=== PATIENT | male | born 1955 | race Caucasian/White ===

== ENCOUNTER → 2020-02-27 07:46 | Outpatient (REF) | payer OTHER, SELFPAY ==
--- NOTE | 2020-02-27 | NM_ITS ---
Myocardial perfusion study Indication: Chest pain with risk factors to evaluate for myocardial ischemia Technique: The patient was brought in for a Lexiscan perfusion study on 02/27/2020. Patient performed low-level exercise and was injected 0.4 mg of Lexiscan intravenously. Within a minute of injection, 45 mCi of sestamibi was given intravenously. Images were obtained using the SPECT gamma camera interlaced with the gating device. Images were obtained in supine position. Resting perfusion study was performed on 03/05/2020. Patient was administered 45 mCi of sestamibi intravenously at rest. Images were then obtained in supine position. Images obtained with and without CT attenuation. Total DLP 79 mGy-cm. Images were processed with the software and compared side to side in short axis, horizontal long axis and vertical long axis views. Findings: The stress perfusion study showed non attenuated images show minimally reduced uptake in the basal inferior wall of the LV myocardium. Remainder of the LV myocardium is normally perfused. Attenuation corrected images show mildly reduced uptake in the apex of the LV myocardium.. The gated study shows normal LV systolic function with calculated LVEF of 69%. LV cavity is normal in size. The gated study shows normal systolic wall thickening and contraction of segments. Resting study shows no change in perfusion pattern compared to stress perfusion study. Gating at rest reveals normal systolic wall motion with ejection fraction at 70%. The findings are consistent with normal myocardial perfusion. NM/NM alycia perf SPECT rest & str Impression: 1. Myocardial perfusion imaging study shows normal myocardial perfusion 2. Gated LVEF is 69% 3. Transient ischemic dilatation not present EKG is nondiagnostic for ischemia
--- NOTE | 2020-02-27 07:52 | CA_ITS ---
Acquisition Time: 2020-02-27 08:21:41 Total Exercise Time: 00:02:00 Test Indications: Dyspnea Medications: Protocol: LEXISCAN Max HR: 129 BPM 82% of Pred: 156 BPM Max BP: 148/090 mmHG Max Work Load: 1.0 METS Pharmacological stress test using Lexiscan while sitting and kicking his feet. Pt tolerated well. Denies any anginal sx. EKG with PAC's non diagnostic for ischemia. Nuclear images to follow. Normotensive response to test. Test reviewed with Dr. Barahona Referred By: Marquez Jones Overread By: Lio Aguirre
== END ==
LOC: HO.CARD 07:46
PROVIDERS: Visit Provider Internal Medicine
DX: R07.89 Other chest pain (principal); I10 Essential (primary) hypertension
CPT/HCPCS: 78452; 93017; A9500; J0280; J2785

== ENCOUNTER 2020-05-06 12:50 | Outpatient (REF) | payer OTHER, SELFPAY ==
[2020-05-06 13:36] LABS: Glucose Urine UA NEG (NEG); Leukocyte Esterase Urine NEG (NEG); Nitrite Urine NEG (NEG); Specific Gravity - Urine 1.025 (1.005-1.025); Urine Blood TRACE (NEG); Urine Ketones NEG (NEG); Urine Protein NEG (NEG-TRACE)
[2020-05-06 13:46] LABS: Appearance Urine CLEAR; Color Urine YELLOW
[2020-05-06 14:02] LABS: Alanine Aminotransferase 28 U/L (0-40); Albumin Level 4.4 g/dL (3.5-5.0); Alkaline Phosphatase 63 U/L (39-117); Anion Gap 12 (12-20); Aspartate Amino Transferase 18 U/L (5-37); Bilirubin Total 0.8 mg/dL (0.0-1.0); Blood Urea Nitrogen 21 mg/dL (9-16); Calcium 8.8 mg/dL (8.4-10.2); Carbon Dioxide 27 mmol/L (22-29); Chloride 106 mmol/L (96-108); Cholesterol 176 mg/dL; Estimated Glomerular Filt Rate > 60; Glucose Fasting 89 mg/dL (60-99); HDL Cholesterol 38 mg/dL; LDL Cholesterol Calculated 109 mg/dl; Potassium 3.7 mmol/L (3.3-5.1); Sodium 141 mmol/L (135-145); Total Protein 7.2 g/dL (6.5-8.0); Triglycerides 146 mg/dL
[2020-05-06 14:09] LABS: Mucus Urine TRACE /LPF; RBC Urine 0-2 /HPF (0); WBC Urine 0 /HPF (0-4)
== END 2020-05-06 12:51 | disposition home or self-care (01) ==
LOC: HO.LAB 12:50
PROVIDERS: PCP Internal Medicine; Visit Provider Internal Medicine
DX: I10 Essential (primary) hypertension (principal); E78.5 Hyperlipidemia, unspecified
CPT/HCPCS: 36415; 80053; 80061; 81001

== ENCOUNTER 2020-06-08 20:01 | Emergency (ER) | payer OTHER, SELFPAY ==
--- NOTE | ~2020-06-08 | XR_ITS ---
Examination: XR ankle LT 2V, XR foot LT 2V Indication: R/O FX. ALSO EXISTING ULCER LEFT HEEL. Comparison: No pertinent prior studies are currently available for comparison. Technique: 2 views of the left ankle and 2 views of the left foot obtained. Findings: Diffuse soft tissue swelling about the ankle more so medially. I do not appreciate any acute underlying fracture or dislocation. Mild degenerative changes seen. Ankle mortise appears grossly intact. Prominent calcaneal heel spurs at the attachment point of the plantar aponeurosis and Achilles tendon. No acute fracture or dislocation within the visualized foot with degenerative changes in the forward and midfoot more suggestive of underlying arthritic change. XR/XR foot LT 2V Impression: Chronic appearing and degenerative changes to the foot and ankle. I do not appreciate any acute fracture or dislocation. Mild soft tissue swelling about the ankle, more so medially.
--- NOTE | ~2020-06-08 | XR_ITS ---
Examination: XR ankle LT 2V, XR foot LT 2V Indication: R/O FX. ALSO EXISTING ULCER LEFT HEEL. Comparison: No pertinent prior studies are currently available for comparison. Technique: 2 views of the left ankle and 2 views of the left foot obtained. Findings: Diffuse soft tissue swelling about the ankle more so medially. I do not appreciate any acute underlying fracture or dislocation. Mild degenerative changes seen. Ankle mortise appears grossly intact. Prominent calcaneal heel spurs at the attachment point of the plantar aponeurosis and Achilles tendon. No acute fracture or dislocation within the visualized foot with degenerative changes in the forward and midfoot more suggestive of underlying arthritic change. XR/XR ankle LT 2V Impression: Chronic appearing and degenerative changes to the foot and ankle. I do not appreciate any acute fracture or dislocation. Mild soft tissue swelling about the ankle, more so medially.
[2020-06-08 20:12] VITALS: BP 158/123; BP 200/100; PULSE 104; PULSE 150; RESP 16; TEMP 37.1; O2SAT 96; BMI 34.4
--- NOTE | 2020-06-08 20:23 | PC.NURSE ---
LEFT LOWER EXTREMITY ELEVATED, ICE PACK APPLIED TO MEDIAL ANKLE. LEFT FOOT WARM WITH GOOD PEDAL PULSE. PT HAS ULCER ON LEFT HEEL X 1 YEAR.
--- NOTE | 2020-06-08 20:24 | PC.NURSE ---
PT REPORTS LEFT HEEL ULCER ON LEFT FOOT STARTED 1 YEAR AGO A CALLOUS I WAS PICKING AT.
--- NOTE | 2020-06-08 20:34 | PC.NURSE ---
XRay at bedside.
[2020-06-08 21:20] VITALS: BP 158/83; PULSE 95; RESP 16; O2SAT 95
--- NOTE | 2020-06-08 21:40 | ED.LOWEXIN ---
HPI - Extremity Injury (Lower) General Chief Complaint: Extremity Injury, Lower Stated Complaint: ?LT ANKLE FX Time Seen by Provider: 06/08/20 20:51 Source: patient Mode of arrival: ambulatory Limitations: no limitations History of Present Illness HPI Narrative: Patient otherwise healthy injured his left ankle and palate Eddi patient was wearing work boots and got crushed with Eddi. Patient came here with significant swelling of the ankle and increased pain. No other injuries patient is able to move his toes no discoloration of the toes no other injuries Related Data Home Medications Medication Instructions Recorded Confirmed amlodipine 5 mg tablet 5 mg PO DAILY 02/06/20 05/05/20 aspirin 81 mg tablet,delayed 81 mg PO DAILY 02/06/20 05/05/20 release lisinopril 40 mg tablet 40 mg PO BID 02/06/20 05/05/20 metoprolol succinate 50 mg 50 mg PO DAILY 02/06/20 05/05/20 tablet,extended release 24 hr tramadol 50 mg tablet 50 mg PO BID PRN 02/06/20 05/05/20 ibuprofen 800 mg tablet 800 mg PO Q8H 05/05/20 05/05/20 Allergies Allergy/AdvReac Type Severity Reaction Status Date / Time No Known Allergies Allergy Verified 06/08/20 20:12 Review of Systems Review of Systems: Yes all other systems are reviewed and are negative PMFSH Past Medical History Medical History Benign essential hypertension Chest discomfort Dyslipidemia Insomnia Obesity (BMI 30-39.9) Osteoarthritis Surgical History History of inguinal hernia repair Family History Family History Father CAD (coronary artery disease) Acute CVA (cerebrovascular accident) Hypertension Diabetes Stroke Mother Hypertension Acute CVA (cerebrovascular accident) Intestinal cancer Sister Hypertension Von Willebrand disease Brother Hypertension Social History Social History Alcohol intake: current Alcohol intake frequency: holidays/special occasions only Alcohol type: beer Smoking Status: Former smoker Advance Directives: No Advance Directives Information Provided: No Physical Exam Vital Signs: Vital Signs: Last Vital Signs Temp 98.7 F 06/08/20 20:12 Pulse 84 06/08/20 23:50 Resp 16 06/08/20 23:50 BP 162/84 H 06/08/20 23:50 Pulse Ox 95 06/08/20 21:20 Body Mass Index 34.4 Const: General: comfortable and no acute distress Orientation/consciousness: patient oriented x3 HENMT: Head: Yes normocephalic and Yes atraumatic Resp: Effort & Inspection: normal respiratory effort Auscultation: clear to auscultation bilaterally Cardio: Palpation: normal PMI Rate: regular rate Rhythm: regular rhythm Heart sounds: S1 normal heart sound present and S2 normal heart sound present GI: Inspection: Yes normal to inspection Palpation (GI): Soft to palpation Neuro: General: patient oriented x3 and no focal motor deficits Extrem: Ankle/foot/toe images: 1. Soft tissue swelling with hematoma of medial malleolus area. Neurovascular intact good active and passive to movements no bony deformity 2. Non healing callus without any signs of infection left heel Procedures Orthopedic Splinting/Casting Injury #1: Side: left Lower Extremity Injury Location: ankle Lower Extremity Immobilizer: posterior splint Other Orthopedic Equipment: crutches MDM - Extremity Injury (Lower) MDM Narrative Medical decision making narrative: Patient has soft tissue injury of left ankle with no active or passive pain when he moves his toes no significant tenderness of calf area neurovascular intact, no signs of compartment syndrome, x-ray negative for fracture patient has an old callus at the sole which was cleaned and Xeroform dressing was applied short-leg splint was applied for support and patient was given crutches advised to follow-up with orthopedics if not better. Differential Diagnosis Differential diagnosis: Likely ankle fracture Imaging Data ankle: Attestation: I personally reviewed and interpreted this imaging study as follows: Radiologist's impression: Ordering Physician: Generic ED Physician Date of Service: 06/08/20 Procedure(s): XR ankle LT 2V Accession Number(s): [id number] cc: Generic ED Physician~ Examination: XR ankle LT 2V, XR foot LT 2V Indication: R/O FX. ALSO EXISTING ULCER LEFT HEEL. Comparison: No pertinent prior studies are currently available for comparison. Technique: 2 views of the left ankle and 2 views of the left foot obtained. Findings: Diffuse soft tissue swelling about the ankle more so medially. I do not appreciate any acute underlying fracture or dislocation. Mild degenerative changes seen. Ankle mortise appears grossly intact. Prominent calcaneal heel spurs at the attachment point of the plantar aponeurosis and Achilles tendon. No acute fracture or dislocation within the visualized foot with degenerative changes in the forward and midfoot more suggestive of underlying arthritic change. XR/XR ankle LT 2V Impression: Chronic appearing and degenerative changes to the foot and ankle. I do not appreciate any acute fracture or dislocation. Mild soft tissue swelling about the ankle, more so medially. Discharge Plan Discharge Clinical Impression: Contusion of ankle, left Qualifiers: Encounter type: initial encounter Qualified Code(s): S90.02XA - Contusion of left ankle, initial encounter Patient Disposition: Home, Self-Care Instructions: Foot Contusion (ED) Additional Instructions: Keep left foot elevated. Use crutches for ambulation Wear the splint for 2 weeks for complete healing. Report to the ER/Orthopedics if increased pain or swelling Continue taking your tramadol for pain Prescriptions: No Action tramadol 50 mg tablet 50 mg PO BID PRNRF: 0 metoprolol succinate 50 mg tablet extended release 24 hr 50 mg PO DAILY RF: 0 lisinopril 40 mg tablet 40 mg PO BID RF: 0 amlodipine [Norvasc] 5 mg tablet 5 mg PO DAILY RF: 0 aspirin 81 mg tablet,delayed release (DR/EC) 81 mg PO DAILY RF: 0 ibuprofen 800 mg tablet 800 mg PO Q8H RF: 0 Referrals: Schuyler Verma MD [Physician] - 1 week Stand Alone Forms: Work/School Release
--- NOTE | 2020-06-08 23:45 | PC.NURSE ---
soil technologist at bedside for splint and crutches. Pt aware of plan to DC home.
[2020-06-08] MEDS: oxyCODONE HCl Immed Release 5 MG TABLET 10 MG PO (23:49)
[2020-06-08 23:50] VITALS: BP 162/84; PULSE 84; RESP 16
== END 2020-06-09 00:46 | disposition home or self-care (01) ==
PROVIDERS: Emergency Provider Internal Medicine; PCP Internal Medicine
DX: S90.02XA Contusion of left ankle, initial encounter (principal); M25.572 Pain in left ankle and joints of left foot; Y29.XXXA Contact with blunt object, undetermined intent, initial encounter; Y93.9 Activity, unspecified; Y92.9 Unspecified place or not applicable; Y99.9 Unspecified external cause status; Z79.899 Other long term (current) drug therapy; Z79.82 Long term (current) use of aspirin; Z87.891 Personal history of nicotine dependence
CPT/HCPCS: 29515; 73600; 73620; 99284

== ENCOUNTER → 2020-06-17 13:51 | Outpatient (BNVA) | payer OTHER, SELFPAY | PROVIDERS: PCP Internal Medicine; Visit Provider Physician Assistant | DX: S91.309A Unspecified open wound, unspecified foot, initial encounter (principal) | CPT/HCPCS: 11042; 99202 ==

== ENCOUNTER 2020-06-24 12:52 | Outpatient (RCR) | payer OTHER, SELFPAY | END 2020-08-04 09:09 | disposition home or self-care (01) | LOC: HO.WCC 12:52 | PROVIDERS: PCP Internal Medicine; Visit Provider Surgery | DX: S97.02XD Crushing injury of left ankle, subsequent encounter (principal); L84 Corns and callosities | CPT/HCPCS: 99213 ==

== ENCOUNTER → 2020-07-09 12:59 | Outpatient (BNVA) | payer OTHER, SELFPAY | PROVIDERS: Visit Provider Physician Assistant ==

== ENCOUNTER → 2020-08-04 13:46 | Outpatient (BNVA) | payer OTHER, SELFPAY | PROVIDERS: PCP Internal Medicine; Visit Provider Physician Assistant | DX: S97.82XA Crushing injury of left foot, initial encounter (principal) | CPT/HCPCS: 99212 ==

== ENCOUNTER → 2020-09-22 13:12 | Outpatient (BNVA) | payer OTHER, SELFPAY | PROVIDERS: PCP Internal Medicine; Visit Provider Physician Assistant | DX: S97.81XD Crushing injury of right foot, subsequent encounter (principal); X58.XXXD Exposure to other specified factors, subsequent encounter; I10 Essential (primary) hypertension; E78.5 Hyperlipidemia, unspecified; Z87.891 Personal history of nicotine dependence | CPT/HCPCS: 99212 ==

== ENCOUNTER 2020-11-16 15:00 | Outpatient (RCR) | payer OTHER, SELFPAY ==
--- NOTE | 2020-07-21 15:53 | MHC.PT.EP ---
[facility] [place] Office [place] Office [place] Office [address] Johnna Valladares [address] [phone] F: [phone] F: [phone] F: [phone] F: [phone] Physical Therapy Plan of Care Date of Evaluation: Date of Surgery: N/A Diagnosis: crush injury left ankle/foot Assessment: pt presents to physical therapy with pain, decreased range of motion, decreased strength, impaired functional mobility, impaired postural awareness, and gait deviations. pt is a good candidate for skilled PT due to age, potential remediation of impairments, typical disease/condition progression and prognosis, comorbidities, and m notivation. pt would benefit from tailored strengthening and stretching exercise program, functional training, gait training, postural re-training, neuromuscular re-education, modalities as needed for pain, equipment safety demonstration. Frequency and Duration: The patient will be seen 2x/wk for 6 wks Short Term Goals: pt will be I w/ HEP to promote self-management of condition. pt will improve L ankle dorsiflexion to neutral to promote optimal foot position in boot to maintain weightbearing precautions. Cuff Folder Goals: pt will report a statistically significant improvement in self-reported outcome measure, LEFI, to promote return to PLOF. pt will improve L plantarflexion strength by 2 MMT grades to promote ease in lifting 50# box from ground to waist height for return to work. Treatment Plan: Modalities to reduce pain, spasms and effusion. Manual therapy to restore motion and function. Therapeutic exercise to improve strength and flexibility. Neuromuscular re-education for posture and balance. Therapeutic activities to return to functional activities of daily living. Electronically signed by: Kalee Ivy PT, DPT Please sign and return to therapist. Thank you for your referral.
--- NOTE | 2020-11-18 17:26 | MHC.PT.DC ---
[facility] [place] Office [place] Office [place] Office [address] Johnna Valladares [address] [facility] [phone] F: [phone] F: [phone] F: [phone] F: [phone] Physical Therapy Discharge Report Diagnosis: crush injury left ankle/foot Date of Surgery: N/A Date of Evaluation: 07/21/20 Date of Discharge: 11/18/20 Treatments to Date: 31 Cancellations to Date: 1 No Shows to Date: 0 Discharge Status: Achieved Goals Discharge Summary: The patient has been consistently reporting no pain and able to resume all normal day-to-day activities. He still has some residual numbness of the heel that he has learned how to compensate. He is independent with his home exercise program including balance and dynamic mobility. He was cleared to return back to work, full duty. He called to cancel the remainder of his appointments and is discharged from this physical therapy plan of care. Electronically signed by: Kalee Ivy PT, DPT Please sign and return to therapist. Thank you for your referral.
== END 2020-11-18 17:26 | disposition home or self-care (01) ==
LOC: HO.PT 15:00
PROVIDERS: PCP Internal Medicine; Visit Provider Physician Assistant
DX: S97.02XD Crushing injury of left ankle, subsequent encounter (principal)
CPT/HCPCS: 97110; 97112; 97116; 97140; 97162; 97164; 97530

== ENCOUNTER → 2020-11-17 13:23 | Outpatient (BNVA) | payer OTHER, SELFPAY | PROVIDERS: PCP Internal Medicine; Visit Provider Physician Assistant | DX: S97.01XD Crushing injury of right ankle, subsequent encounter (principal) | CPT/HCPCS: 99212 ==

== ENCOUNTER 2021-04-14 15:39 | Outpatient (REF) | payer SELFPAY ==
[2021-04-14 15:55] LABS: Binax Internal Control QC Valid; Binax Now Covid-19 Ag Negative (Negative)
== END 2021-04-14 15:40 | disposition home or self-care (01) ==
LOC: HO.LAB 15:39
PROVIDERS: PCP Internal Medicine; Visit Provider Internal Medicine
DX: Z13.89 Encounter for screening for other disorder (principal)

== ENCOUNTER 2021-08-03 14:32 | Outpatient (REF) | payer MEDICARE, SELFPAY ==
--- NOTE | ~2021-08-03 | XR_ITS ---
EXAMINATION: XR FOOT, LEFT CLINICAL INFORMATION: Cellulitis of left lower limb COMPARISON: None TECHNIQUE: AP, lateral, and oblique views of the left foot. FINDINGS: There is a moderate size calcaneal heel and retrocalcaneal enthesophytes. There is dorsal talonavicular and tarsometatarsal spurring. The ankle mortise and subtalar joints are normal. No visible acute fracture, dislocation or subluxation seen. XR/XR foot LT min 3V IMPRESSION: Moderate to large calcaneal heel and moderate retrocalcaneal enthesophytes.
[2021-08-03 14:48] LABS: MANUAL DIFF FLAG NO
[2021-08-03 15:24] LABS: Basophils Absolute Auto 0.1 X10*3/uL (0.0-0.2); Basophils Percent Auto 0.6 % (0-2); Eosinophils Absolute Auto 0.2 X10*3/uL (0.0-0.4); Eosinophils Percent Auto 1.4 % (0-4); Hemoglobin 15.6 g/dl (14.0-18.0); Imm Gran Abs Auto 0.08 X10*3/uL (0.00-0.03); Imm Gran Pct Auto 0.7 % (0.0-0.4); Lymphocytes Absolute Auto 3.2 X10*3/uL (1.2-4.9); Lymphocytes Percent Auto 25.8 % (20-40); Mean Corpuscular HGB Conc 33.9 g/dl (31.0-36.0); Mean Corpuscular Hemoglobin 29.8 pg (27.0-33.0); Mean Corpuscular Volume 87.8 fL (80.0-98.0); Mean Platelet Volume 11.8 fL (9.4-12.4); Monocytes Absolute Auto 0.9 X10*3/uL (0.1-1.2); Monocytes Percent Auto 7.6 % (2-11); Neutrophils Absolute Auto 7.8 x10*3/uL (2.0-8.3); Neutrophils Percent Auto 63.9 % (45-73); Platelet Count 239 X10*3/uL (160-400); Red Blood Count 5.24 X10*6/uL (4.60-5.80); Red Cell Distribution Width 12.4 % (11.0-16.0); White Blood Count 12.2 X10*3/uL (4.8-10.8)
[2021-08-03 15:31] LABS: Appearance Urine CLEAR; Color Urine YELLOW; Glucose Urine UA 250 MG/DL (NEG); Leukocyte Esterase Urine NEG (NEG); Nitrite Urine NEG (NEG); PH 5.5 (5.0-8.0); Specific Gravity - Urine >= 1.030 (1.005-1.025); UACC Culture Trigger NO; Urine Blood NEG (NEG); Urine Ketones NEG (NEG); Urine Protein 2+ MG/DL (NEG-TRACE)
[2021-08-03 15:39] LABS: Alanine Aminotransferase 31 U/L (0-40); Albumin Level 4.4 g/dL (3.5-5.0); Alkaline Phosphatase 81 U/L (39-117); Anion Gap 13 (12-20); Aspartate Amino Transferase 18 U/L (5-37); Bilirubin Total 0.8 mg/dL (0.0-1.0); Blood Urea Nitrogen 21 mg/dL (9-16); Calcium 9.5 mg/dL (8.4-10.2); Carbon Dioxide 24 mmol/L (22-29); Chloride 107 mmol/L (96-108); Cholesterol 189 mg/dL; Estimated Glomerular Filt Rate 58; Glucose Fasting 222 mg/dL (60-99); HDL Cholesterol 33 mg/dL; LDL Cholesterol Calculated 93 mg/dl; Potassium 5.1 mmol/L (3.3-5.1); Sodium 139 mmol/L (135-145); Total Protein 7.5 g/dL (6.5-8.0); Triglycerides 317 mg/dL
[2021-08-03 15:41] LABS: Bacteria Urine 1+ /LPF; Mucus Urine 1+ /LPF; RBC Urine 0 /HPF (0); Squamous Epithelial Cell Urine 1+ /LPF; WBC Urine 0 /HPF (0-4)
[2021-08-03 15:59] LABS: Vitamin D 25-OH Total 12.1 ng/mL (>30)
[2021-08-03 16:12] LABS: Folate 12.5 ng/mL (> or = 4.0); Vitamin B12 301 pg/mL (200-900)
== END 2021-08-03 14:33 | disposition home or self-care (01) ==
LOC: HO.LAB 14:32
PROVIDERS: PCP Internal Medicine; Referring Provider Internal Medicine; Visit Provider Hospitalist
DX: E55.9 Vitamin D deficiency, unspecified (principal); E53.8 Deficiency of other specified B group vitamins; I10 Essential (primary) hypertension; E78.00 Pure hypercholesterolemia, unspecified
CPT/HCPCS: 36415; 73630; 80053; 80061; 81001; 82306; 82607; 82746; 84443; 85025

== ENCOUNTER 2021-08-08 08:44 | Outpatient (RCR) | payer MEDICARE, SELFPAY | END 2021-10-07 15:00 | disposition home or self-care (01) | LOC: HO.WCC 08:44 | PROVIDERS: PCP Internal Medicine; Visit Provider Physician Assistant | DX: L97.428 Non-pressure chronic ulcer of left heel and midfoot with other specified severity (principal); L84 Corns and callosities; I10 Essential (primary) hypertension; Z87.891 Personal history of nicotine dependence | CPT/HCPCS: 11042; 99212; 99213 ==

== ENCOUNTER 2021-08-16 13:31 | Emergency (ER) | payer MEDICARE, SELFPAY ==
--- NOTE | 2021-08-16 | ECG_ITS ---
Test Reason : chest pain Blood Pressure : / mmHG Vent. Rate : 072 BPM Atrial Rate : 072 BPM P-R Int : 198 ms QRS Dur : 076 ms QT Int : 348 ms P-R-T Axes : 047 050 043 degrees QTc Int : 381 ms Sinus rhythm with Premature atrial complexes Otherwise normal ECG When compared with ECG of 12-SEP-2019 18:34, No significant change was found Referred By: Generic ED Physician Electronically Signed By:EHIDY GLOVER MD
--- NOTE | ~2021-08-16 | XR_ITS ---
EXAMINATION: XR CHEST CLINICAL INFORMATION: Chest pain COMPARISON: 09/29/2019 TECHNIQUE: Frontal view of the chest was obtained. FINDINGS: No significant abnormality is noted involving the heart, lungs, mediastinum, bony thorax or soft tissues. XR/XR chest 1V IMPRESSION: Unremarkable examination.
[2021-08-16 15:13] VITALS: BP 169/96; PULSE 78; RESP 18; TEMP 36.8; O2SAT 98; BMI 36.9
[2021-08-16 15:27] LABS: MANUAL DIFF FLAG NO
[2021-08-16 15:31] LABS: Basophils Absolute Auto 0.1 X10*3/uL (0.0-0.2); Basophils Percent Auto 0.5 % (0-2); Eosinophils Absolute Auto 0.3 X10*3/uL (0.0-0.4); Eosinophils Percent Auto 2.7 % (0-4); Hematocrit 42.3 % (42.0-52.0); Hemoglobin 14.6 g/dl (14.0-18.0); Imm Gran Abs Auto 0.11 X10*3/uL (0.00-0.03); Imm Gran Pct Auto 0.9 % (0.0-0.4); Lymphocytes Absolute Auto 2.8 X10*3/uL (1.2-4.9); Lymphocytes Percent Auto 22.8 % (20-40); Mean Corpuscular HGB Conc 34.5 g/dl (31.0-36.0); Mean Corpuscular Hemoglobin 29.9 pg (27.0-33.0); Mean Corpuscular Volume 86.5 fL (80.0-98.0); Mean Platelet Volume 11.3 fL (9.4-12.4); Monocytes Absolute Auto 0.7 X10*3/uL (0.1-1.2); Monocytes Percent Auto 5.8 % (2-11); Neutrophils Absolute Auto 8.4 x10*3/uL (2.0-8.3); Neutrophils Percent Auto 67.3 % (45-73); Platelet Count 182 X10*3/uL (160-400); Red Blood Count 4.89 X10*6/uL (4.60-5.80); Red Cell Distribution Width 12.3 % (11.0-16.0); White Blood Count 12.4 X10*3/uL (4.8-10.8)
[2021-08-16 15:48] LABS: Anion Gap 11 (12-20); Blood Urea Nitrogen 15 mg/dL (9-16); Calcium 9.6 mg/dL (8.4-10.2); Carbon Dioxide 22 mmol/L (22-29); Chloride 112 mmol/L (96-108); Estimated Glomerular Filt Rate > 60; Glucose Random 169 mg/dL (60-115); Potassium 4.1 mmol/L (3.3-5.1); Sodium 141 mmol/L (135-145)
[2021-08-16 15:56] LABS: Troponin-I High Sensitivity < 3.5 ng/L (<3.5-35.0)
== END 2021-08-16 18:04 | disposition left against medical advice (07) ==
PROVIDERS: Emergency Provider Emergency Medicine; PCP Internal Medicine
DX: R07.9 Chest pain, unspecified (principal); I10 Essential (primary) hypertension; R42 Dizziness and giddiness
CPT/HCPCS: 36415; 71045; 80048; 84484; 85025; 93005; 99281; 99283

== ENCOUNTER 2021-08-17 08:56 | Emergency (ER) | payer MEDICARE, SELFPAY ==
[2021-08-17 09:05] VITALS: BP 195/98; PULSE 73; RESP 16; TEMP 36.4; O2SAT 98; BMI 35.9
--- NOTE | 2021-08-17 09:08 | ECG_ITS ---
Test Reason : cp Blood Pressure : / mmHG Vent. Rate : 085 BPM Atrial Rate : 085 BPM P-R Int : 178 ms QRS Dur : 094 ms QT Int : 374 ms P-R-T Axes : 044 047 028 degrees QTc Int : 445 ms Sinus rhythm with Premature supraventricular complexes Otherwise normal ECG When compared with ECG of 16-AUG-2021 15:13, ST no longer elevated in Inferior leads QT has lengthened Referred By: Generic ED Physician Electronically Signed By:HEIDY GLOVER MD
[2021-08-17 09:30] LABS: MANUAL DIFF FLAG NO
[2021-08-17 09:34] LABS: Basophils Absolute Auto 0.1 X10*3/uL (0.0-0.2); Basophils Percent Auto 0.6 % (0-2); Eosinophils Absolute Auto 0.3 X10*3/uL (0.0-0.4); Eosinophils Percent Auto 3.3 % (0-4); Hemoglobin 15.3 g/dl (14.0-18.0); Imm Gran Abs Auto 0.14 X10*3/uL (0.00-0.03); Imm Gran Pct Auto 1.3 % (0.0-0.4); Lymphocytes Absolute Auto 2.7 X10*3/uL (1.2-4.9); Lymphocytes Percent Auto 26.3 % (20-40); Mean Corpuscular HGB Conc 34.8 g/dl (31.0-36.0); Mean Corpuscular Hemoglobin 29.9 pg (27.0-33.0); Mean Corpuscular Volume 86.1 fL (80.0-98.0); Mean Platelet Volume 11.2 fL (9.4-12.4); Monocytes Absolute Auto 0.7 X10*3/uL (0.1-1.2); Monocytes Percent Auto 6.2 % (2-11); Neutrophils Absolute Auto 6.5 x10*3/uL (2.0-8.3); Neutrophils Percent Auto 62.3 % (45-73); Platelet Count 184 X10*3/uL (160-400); Red Blood Count 5.11 X10*6/uL (4.60-5.80); Red Cell Distribution Width 12.2 % (11.0-16.0); White Blood Count 10.4 X10*3/uL (4.8-10.8)
[2021-08-17 09:49] LABS: Anion Gap 11 (12-20); Blood Urea Nitrogen 18 mg/dL (9-16); Calcium 9.6 mg/dL (8.4-10.2); Carbon Dioxide 23 mmol/L (22-29); Chloride 110 mmol/L (96-108); Creatinine Clr Calc Pharmacy 98.5; Estimated Glomerular Filt Rate > 60; Glucose Random 189 mg/dL (60-115); Potassium 4.2 mmol/L (3.3-5.1); Sodium 140 mmol/L (135-145)
[2021-08-17 15:56] VITALS: BP 227/102; PULSE 94; RESP 20; TEMP 36.6; O2SAT 99
--- NOTE | 2021-08-17 16:00 | PC.NURSE ---
pt a&ox3, hypertensive on monitor, pt reports occ right sided chest pain/gas pains/headaches. denies any chest pain at this time, reports 2/10 headache. provider in room.
--- NOTE | 2021-08-17 16:10 | ED.GENADULT ---
HPI - General Adult General Chief complaint: General Medical Stated complaint: high bp dizzy Time Seen by Provider: 08/17/21 15:58 Source: patient Limitations: no limitations History of Present Illness HPI narrative: This is a 66-year-old male with history of hypertension, obesity, who has had elevated blood pressure readings recently. Today the patient noted some feeling of lightheadedness, mild headache. He is had pain on the right side of his chest for a few weeks, mild. Denies any shortness of breath. Denies any unusual nausea or sweating ( notes that since COVID he tends to sweat more). He notes he is on lisinopril, amlodipine, and metoprolol but has not had any change in the dose of his medications for 3 years. He denies any visual changes, numbness or weakness in his arms or legs or face. He notes that he has recently retired but has to take care of his who is more elderly, as well as some grandchildren when his daughter is at work. He did take his blood pressure medicine today Related Data Home Medications Medication Instructions Recorded Confirmed aspirin 81 mg tablet,delayed 81 mg PO DAILY 02/06/20 07/06/21 release Previous Rx's Medication Instructions Recorded Kneeling Scooter #1 ea 06/17/20 lisinopril 40 mg tablet 40 mg PO BID 90 Days #180 tab 10/12/20 metoprolol succinate 50 mg 50 mg PO DAILY 90 Days #90 tab 02/23/21 tablet,extended release 24 hr meloxicam 15 mg tablet 15 mg PO DAILY PRN 90 Days #90 tab 07/05/21 tramadol 50 mg tablet 50 mg PO BID PRN 30 Days #60 tab 07/22/21 cephalexin 750 mg capsule 750 mg PO Q8H 10 Days #30 cap 08/03/21 clotrimazole 1 % topical cream 1 appl TOPICAL TID 30 Days #30 g 08/03/21 amlodipine 5 mg tablet 5 mg PO DAILY #90 tab 08/05/21 amoxicillin 875 mg-potassium 1 tab PO BID 10 Days #20 tab 08/05/21 clavulanate 125 mg tablet ibuprofen 800 mg tablet 800 mg PO TID PRN #270 tab 08/08/21 amlodipine 10 mg tablet 10 mg PO DAILY #30 tab 08/17/21 metoprolol succinate 100 mg 100 mg PO DAILY #30 tab 08/17/21 tablet,extended release 24 hr Allergies Allergy/AdvReac Type Severity Reaction Status Date / Time No Known Allergies Allergy Verified 08/16/21 15:13 Review of Systems Review of Systems: Yes all other systems are reviewed and are negative Constitutional: Constitutional: Reports as per HPI, Denies fever(s) and Reports headache(s) Eyes: Eyes: Reports as per HPI, Reports no additional eye complaints and Denies loss of vision ENT: Reports system reviewed and no additional complaints, except as documented, Reports as per HPI, Reports headache(s), Denies nasal congestion, Denies nasal discharge and Denies sore throat Cardiovascular: Cardiovascular: Reports as per HPI, Reports chest pain and Denies dyspnea Respiratory: Respiratory: Reports as per HPI, Denies cough and Denies dyspnea Gastrointestinal: Gastrointestinal: Reports as per HPI, Denies abdominal pain, Denies diarrhea and Denies vomiting Genitourinary: Genitourinary: Reports as per HPI, Denies hematuria, Denies dysuria and Denies urinary frequency Musculoskeletal: Musculoskeletal: Reports no additional musculoskeletal complaints and Denies numbness Integumentary/Breasts: Skin/Breast: Reports as per HPI and Denies rash Neurologic: Reports as per HPI, Denies Abnormal speech present, Reports headache(s), Denies focal weakness, Denies loss of vision, Denies numbness and Denies Other visual disturbances Psychiatric: Psychiatric: Reports no additional psychiatric complaints and Reports as per HPI Endocrine: Endocrine: Reports no additional endocrine complaints and Reports as per HPI Hematologic/Lymphatic: Hematologic/Lymphatic: Reports no additional hematologic/lymphatic complaints, Reports as per HPI and Reports other (No peripheral edema) [facility] Past Medical History Medical History Benign essential hypertension Dyslipidemia Insomnia Obesity (BMI 30-39.9) Osteoarthritis Surgical History History of inguinal hernia repair Family History Family History Father CAD (coronary artery disease) Acute CVA (cerebrovascular accident) Hypertension Diabetes Stroke Mother Hypertension Acute CVA (cerebrovascular accident) Intestinal cancer Sister Hypertension Von Willebrand disease Brother Hypertension Social History Social History Housing: House Alcohol intake: current Alcohol intake frequency: holidays/special occasions only Alcohol type: beer Patient Tobacco Use Status: Former Tobacco user Second Hand Smoke Exposure: Yes Use of substances other than those prescribed or required for medical reasons: No Advance Directives: No Advance Directives Information Provided: No service: Yes ([employer]) Current occupational status: employed Current occupation: Unloading department Cognitive needs: No Hearing needs: No Vision needs: No Physical Exam ED Vital Signs: Vital Signs - 24 hr 08/17/21 09:05 08/17/21 15:56 08/17/21 18:00 Temperature 97.5 F 97.9 F Pulse Rate 73 94 91 Respiratory Rate 16 20 18 Blood Pressure 195/98 H 227/102 H 175/93 H Pulse Oximetry 98 99 99 BMI result Body Mass Index 35.9 Neuro Speech: No Abnormal speech present Course Course Course Narrative: Patient was given an extra dose of amlodipine 5 mg p.o.. He was also given Vasotec 1.25 mg IV. His blood pressure still remained elevated with a diastolic around 110 and a systolic around 200. Patient was given labetalol 10 mg IV his blood pressure did finally come down to a less concerning level. Patient has had some right-sided chest discomfort off and on for few weeks. EKG showed PACs. Troponin is negative. Troponin had also been checked yesterday when the patient came to the ED but did not end up being seen, and was negative. Will plan to double the patient's amlodipine to 10 mg daily, also double his metoprolol to 100 mg daily, and the patient can follow up with primary care physician. Critical care time for this life-threatening illness exclusive of all other billable procedures was approximately 45 minutes including initial evaluation of the patient, ordering tests, x-ray interpretation, EKG interpretation, medical consultation, documentation, reevaluation. Medical Decision Making Lab Data Lab results reviewed: Yes I reviewed the patient's lab results. Result diagrams: 08/17/21 09:26 08/17/21 09:26 Labs: Lab Results 08/17/21 08/17/21 08/17/21 Range/Units 09:26 09:26 09:26 WBC 10.4 (4.8-10.8) X10*3/uL RBC 5.11 (4.60-5.80) X10*6/uL Hgb 15.3 (14.0-18.0) g/dl Hct 44.0 (42.0-52.0) % MCV 86.1 (80.0-98.0) fL MCH 29.9 (27.0-33.0) pg MCHC 34.8 (31.0-36.0) g/dl RDW 12.2 (11.0-16.0) % Plt Count 184 (160-400) X10*3/uL MPV 11.2 (9.4-12.4) fL Immature Gran % (Auto) 1.3 H (0.0-0.4) % Neut % (Auto) 62.3 (45-73) % Lymph % (Auto) 26.3 (20-40) % [place] % (Auto) 6.2 (2-11) % Eos % (Auto) 3.3 (0-4) % Baso % (Auto) 0.6 (0-2) % Lymph # (Auto) 2.7 (1.2-4.9) X10*3/uL [place] # (Auto) 0.7 (0.1-1.2) X10*3/uL Eos # (Auto) 0.3 (0.0-0.4) X10*3/uL Baso # (Auto) 0.1 (0.0-0.2) X10*3/uL Abs Immat Gran (auto) 0.14 H (0.00-0.03) X10*3/uL Absolute Neuts (auto) 6.5 (2.0-8.3) x10*3/uL Absolute Nucleated RBC 0.000 (0.0-0.012) X10*3/uL Nucleated RBC % (auto) 0.0 (0.0-0.2) /100WBC Sodium 140 (135-145) mmol/L Potassium 4.2 (3.3-5.1) mmol/L Chloride 110 H (96-108) mmol/L Carbon Dioxide 23 (22-29) mmol/L Anion Gap 11 L (12-20) BUN 18 H (9-16) mg/dL Creatinine 0.93 (0.5-1.4) mg/dL Estim Creat Clear Calc 98.5 Estimated GFR > 60 Random Glucose 189 H (60-115) mg/dL Calcium 9.6 (8.4-10.2) mg/dL Troponin I High Sens < 3.5 (<3.5-35.0) ng/L ECG Data Attestation: I personally reviewed and interpreted this ECG as follows: Prior ECG tracings: available for review Interpretation: Sinus rhythm with a rate of 85. Frequent PACs. No ST elevation or depression. EKG appears similar to 1 from yesterday Discharge Plan Discharge Clinical Impression: Poorly-controlled hypertension, Chest pain Patient Disposition: Home, Self-Care Instructions: Hypertension (ED), Chest Wall Pain (ED) Additional Instructions: Double your amlodipine to 10 mg daily, and increase her metoprolol to 50 mg daily. Am sending new prescriptions for these medications. Continue lisinopril 40 mg daily. Follow-up with primary care physician for re-evaluation of her blood pressure in the next few weeks Prescriptions: New amlodipine 10 mg tablet 10 mg PO DAILY Qty: 30 1RF metoprolol succinate 100 mg tablet extended release 24 hr 100 mg PO DAILY Qty: 30 1RF No Action lisinopril 40 mg tablet 40 mg PO BID 90 Days Qty: 180 0RF Rx Instructions: Please call and schedule a cardiology appt for refills - overdue metoprolol succinate 50 mg tablet extended release 24 hr 50 mg PO DAILY 90 Days Qty: 90 1RF tramadol 50 mg tablet 50 mg PO BID PRN (Reason: pain) 30 Days Qty: 60 1RF amlodipine 5 mg tablet 5 mg PO DAILY Qty: 90 1RF amoxicillin-pot clavulanate 875-125 mg tablet 1 tab PO BID 10 Days Qty: 20 0RF ibuprofen 800 mg tablet 800 mg PO TID PRN (Reason: for joint pain) Qty: 270 1RF aspirin 81 mg tablet,delayed release (DR/EC) 81 mg PO DAILY 0RF meloxicam 15 mg tablet 15 mg PO DAILY PRN (Reason: pain) 90 Days Qty: 90 1RF Rx Instructions: take with food clotrimazole 1 % cream 1 appl topical TID 30 Days Qty: 30 1RF cephalexin 750 mg capsule 750 mg PO Q8H 10 Days Qty: 30 0RF (DME) Kneeling Scooter See Rx Instructions .ROUTE .MEDSUPPLY Qty: 1 0RF Rx Instructions: As directed Interventions: ED Discharge Assessment Last Done: 08/17/21 20:02 Discharge Date/Time: 08/17/21 20:02
--- NOTE | 2021-08-17 16:36 | PC.NURSE ---
pharmacy contacted to bring up vasotech IV - medication not in pyxis.
[2021-08-17] MEDS: amLODIPine Besylate 5 MG TABLET PO (16:40)
--- NOTE | 2021-08-17 16:41 | PC.NURSE ---
20G IV placed right hand, medicated per provider order. no new orders at this time.
[2021-08-17] MEDS: Enalaprilat Dihydrate 1.25 MG/ML VIAL IVPUSH (16:42)
[2021-08-17 18:00] VITALS: BP 175/93; PULSE 91; RESP 18; O2SAT 99
[2021-08-17 18:06] LABS: Troponin-I High Sensitivity < 3.5 ng/L (<3.5-35.0)
[2021-08-17] MEDS: Labetalol HCL 100 MG/20 ML VIAL 10 MG IVPUSH (19:22)
== END 2021-08-17 20:02 | disposition home or self-care (01) ==
PROVIDERS: Emergency Provider Emergency Medicine; PCP Internal Medicine
DX: I10 Essential (primary) hypertension (principal); R07.9 Chest pain, unspecified; Z79.899 Other long term (current) drug therapy
CPT/HCPCS: 36415; 80048; 84484; 85025; 93005; 96374; 96375; 99284

== ENCOUNTER 2021-08-22 14:41 | Outpatient (REF) | payer MEDICARE, SELFPAY ==
--- NOTE | ~2021-08-22 | MR_ITS ---
EXAMINATION: MR ANKLE WITHOUT AND WITH CONTRAST, LEFT CLINICAL INFORMATION: Calcaneal wound. Intermittent pain. Pain and swelling. COMPARISON: Multiple priors, most recent left foot radiographs dated 08/03/2021. TECHNIQUE: MRI of the ankle was performed before and after the intravenous administration of 10 mL gadolinium on a high-field scanner. FINDINGS: BONE AND ARTICULAR CARTILAGE: No acute fracture or dislocation. Ankle mortise is maintained. Mild tibiotalar articular cartilage thinning with tiny marginal osteophytes. Articular cartilage thinning with mild subchondral cystic change and marginal osteophytes at the talonavicular joint. At the dorsal aspect of the anterior calcaneal process, there is a partially fused osteophyte versus remote fracture fragment with mild underlying subchondral cystic change. Plantar and dorsal calcaneal spurs. No marrow edema within the plantar aspect of the calcaneus. No osseous erosion or evidence of acute osteomyelitis. ACHILLES TENDON: Minimal distal Achilles tendinosis. OTHER TENDONS: Intact. LIGAMENTS: Intact. JOINT FLUID AND SOFT TISSUES: No significant joint effusion. Redemonstration of soft tissue ulceration with skin thickening and postcontrast enhancement along the plantar aspect of the calcaneal fat pad. Findings are consistent with mild cellulitis. No associated abscess formation. PLANTAR FASCIA: Mild thickening of the proximal plantar fascia without edema, which could indicate a remote plantar fascial injury. No measurable tear. SINUS TARSI AND TARSAL TUNNEL: Normal. MR/MR ankle LT wo/w con IMPRESSION: 1. Soft tissue ulceration and cellulitis along the plantar aspect of the calcaneal fat pad. No abscess formation. No evidence of adjacent osteomyelitis. 2. Partially fused osteophyte versus remote fracture at the dorsal aspect of the anterior calcaneal process with associated degenerative change. No evidence of acute fracture or dislocation. 3. Mild tibiotalar and talonavicular osteoarthritis. Plantar and dorsal calcaneal spurs. 4. Minimal distal Achilles tendinosis.
== END 2021-08-22 14:42 | disposition home or self-care (01) ==
LOC: HO.MRI 14:41
PROVIDERS: Visit Provider Physician Assistant
DX: L97.528 Non-pressure chronic ulcer of other part of left foot with other specified severity (principal)
CPT/HCPCS: 73723; A9585

== ENCOUNTER 2021-09-22 11:37 | Outpatient (REF) | payer MEDICARE, SELFPAY ==
[2021-09-22 11:54] LABS: MANUAL DIFF FLAG NO
[2021-09-22 12:38] LABS: Basophils Absolute Auto 0.1 X10*3/uL (0.0-0.2); Basophils Percent Auto 0.4 % (0-2); Eosinophils Absolute Auto 0.2 X10*3/uL (0.0-0.4); Eosinophils Percent Auto 1.7 % (0-4); Hematocrit 42.5 % (42.0-52.0); Hemoglobin 14.9 g/dl (14.0-18.0); Imm Gran Abs Auto 0.12 X10*3/uL (0.00-0.03); Lymphocytes Absolute Auto 2.9 X10*3/uL (1.2-4.9); Lymphocytes Percent Auto 24.8 % (20-40); Mean Corpuscular HGB Conc 35.1 g/dl (31.0-36.0); Mean Corpuscular Hemoglobin 29.5 pg (27.0-33.0); Mean Corpuscular Volume 84.2 fL (80.0-98.0); Mean Platelet Volume 11.4 fL (9.4-12.4); Monocytes Absolute Auto 0.9 X10*3/uL (0.1-1.2); Monocytes Percent Auto 7.5 % (2-11); Neutrophils Absolute Auto 7.7 x10*3/uL (2.0-8.3); Neutrophils Percent Auto 64.6 % (45-73); Platelet Count 215 X10*3/uL (160-400); Red Blood Count 5.05 X10*6/uL (4.60-5.80); Red Cell Distribution Width 12.4 % (11.0-16.0); White Blood Count 11.9 X10*3/uL (4.8-10.8)
[2021-09-22 12:57] LABS: Estimated Average Glucose 189 mg/dL; Hemoglobin A1c % 8.2 %
[2021-09-22 13:12] LABS: Alanine Aminotransferase 26 U/L (0-40); Albumin Level 4.5 g/dL (3.5-5.0); Alkaline Phosphatase 80 U/L (39-117); Anion Gap 14 (12-20); Aspartate Amino Transferase 17 U/L (5-37); Bilirubin Total 0.6 mg/dL (0.0-1.0); Blood Urea Nitrogen 21 mg/dL (9-16); Calcium 9.2 mg/dL (8.4-10.2); Carbon Dioxide 24 mmol/L (22-29); Chloride 107 mmol/L (96-108); Estimated Glomerular Filt Rate > 60; Glucose Fasting 239 mg/dL (60-99); Potassium 4.3 mmol/L (3.3-5.1); Sodium 141 mmol/L (135-145); Total Protein 7.6 g/dL (6.5-8.0)
[2021-09-22 13:38] LABS: Erythrocyte Sedimentation Rate 16 MM/HR (0-15)
[2021-09-22 14:45] LABS: Appearance Urine CLOUDY; Color Urine YELLOW; Glucose Urine UA 100 MG/DL (NEG); Leukocyte Esterase Urine NEG (NEG); Nitrite Urine NEG (NEG); PH 5.5 (5.0-8.0); Specific Gravity - Urine >= 1.030 (1.005-1.025); UACC Culture Trigger NO; Urine Blood NEG (NEG); Urine Ketones NEG (NEG); Urine Protein 1+ MG/DL (NEG-TRACE)
[2021-09-22 14:47] LABS: Creatinine Urine 271.12 mg/dL; Microalbum/Creatinine Ratio Ur 39.4 ug/mg cr
[2021-09-22 14:59] LABS: Amorphous Sediment Urine 2+ /LPF; Bacteria Urine TRACE /LPF; RBC Urine 0-2 /HPF (0); Squamous Epithelial Cell Urine TRACE /LPF; WBC Urine 0-2 /HPF (0-4)
[2021-09-22 15:00] LABS: Mucus Urine 1+ /LPF
[2021-09-24 13:12] LABS: C Peptide 2.85 ng/mL (0.80-3.85)
== END 2021-09-22 11:38 | disposition home or self-care (01) ==
LOC: HO.LAB 11:37
PROVIDERS: PCP Internal Medicine; Visit Provider Internal Medicine
DX: I10 Essential (primary) hypertension (principal); M79.7 Fibromyalgia; E11.65 Type 2 diabetes mellitus with hyperglycemia
CPT/HCPCS: 36415; 80053; 81001; 82043; 83036; 84681; 85025; 85652

== ENCOUNTER → 2021-12-01 07:47 | Day surgery (SDC) | payer MEDICARE, SELFPAY ==
[2021-11-25 15:27] VITALS: BMI 35.7
--- NOTE | 2021-11-30 09:05 | P.CONAN_ITS ---
Documented by User: Eloisa Hernandez NP 11/30/21 09:06 HPI - Anesthesia Eval Consult details Narrative: 66yo M for Left Debridement Decubitis Ulcer foot - punch biopsy Medically optimized per PCP [facility] Active Problems Active Problems: All Active Problems (Updated 11/30/21 @ 07:40 by Jamia Tavera RN) Chest discomfort (Acute) Crush injury (Acute) Wound, open, foot (Acute) Fungal infection of foot (Acute) Cellulitis of foot, right (Acute) Chronic ulcer of left heel (Acute) Hyperglycemia (Acute) DMII (diabetes mellitus, type 2) (Acute) Preoperative examination (Acute) Mixed hyperlipidemia (Acute) Dyslipidemia (Acute) Obesity (BMI 30-39.9) (Acute) Insomnia (Acute) Osteoarthritis (Acute) Benign essential hypertension (Acute) Past Medical History Medical History Benign essential hypertension Diabetes Dyslipidemia Insomnia Mixed hyperlipidemia Obesity (BMI 30-39.9) Osteoarthritis Family History Family History Father CAD (coronary artery disease) Acute CVA (cerebrovascular accident) Hypertension Diabetes Stroke Mother Hypertension Acute CVA (cerebrovascular accident) Intestinal cancer Sister Hypertension Von Willebrand disease Brother Hypertension Surgical History Surgical History History of inguinal hernia repair Social History Social History Housing: House Are you a primary career representative to a significant other at home: No Do you presently have visiting nurse or other home services: No Alcohol intake: current Alcohol intake frequency: holidays/special occasions only Alcohol type: beer Patient Tobacco Use Status: Former Tobacco user e-Cigarette/Vaping Use: Never Used Second Hand Smoke Exposure: Yes Have you been hit, kicked, punched, or otherwise hurt by someone within the past year? If so, by whom?: No Are you DNR?: No Advance Directives: No Advance Directives Information Provided: Yes Advance Directives on File: No Recently lost weight without trying: No Eating poorly because of decreased appetite: No Nutrition Risks: No Nutritional Risk service: Yes (Wannyi) Current occupational status: employed Current occupation: Unloading department Cognitive needs: No Hearing needs: No Vision needs: No Meds Allergies Allergy/AdvReac Type Severity Reaction Status Date / Time No Known Allergies Allergy Verified 11/17/21 13:10 Home Medications Medication Instructions Recorded Confirmed Last Taken Type aspirin 81 mg tablet,delayed 81 mg PO DAILY 02/06/20 11/25/21 Unknown History release Exam Exam Date and Time: November 30, 2021 09 Height,Weight and Vital Signs: Height 5 ft 9 in Weight 109.769 kg Pertinent Lab Results Pertinent Lab Results: Laboratory Tests 09/22/21 09/22/21 11:53 11:53 WBC 11.9 H Hgb 14.9 Hct 42.5 Plt Count 215 Sodium 141 Potassium 4.3 Chloride 107 Carbon Dioxide 24 BUN 21 H Creatinine 1.15 Narrative Narrative: EKG 08/2021 Vent. Rate : 085 BPM ? ? Atrial Rate : 085 BPM ?? P-R Int : 178 ms? QRS Dur : 094 ms ? ? QT Int : 374 ms ? ? ? P-R-T Axes : 044 047 028 degrees ?? QTc Int : 445 ms ? Sinus rhythm with Premature supraventricular complexes Otherwise normal ECG When compared with ECG of 16-AUG-2021 15:13, ST no longer elevated in Inferior leads QT has lengthened Assessment and Plan Assessment Anesthesia Assessment: Chart Reviewed Documented by User: Nacho Puente MD 12/01/21 10:18 [facility] Past Medical History Medical History Benign essential hypertension Diabetes Dyslipidemia Insomnia Mixed hyperlipidemia Obesity (BMI 30-39.9) Osteoarthritis Family History Family History Father CAD (coronary artery disease) Acute CVA (cerebrovascular accident) Hypertension Diabetes Stroke Mother Hypertension Acute CVA (cerebrovascular accident) Intestinal cancer Sister Hypertension Von Willebrand disease Brother Hypertension Family history of problems with anesthesia: No Surgical History Surgical History History of inguinal hernia repair History of Problems with Anesthesia: No Social History Social History Housing: House Are you a primary career representative to a significant other at home: No Do you presently have visiting nurse or other home services: No Alcohol intake: current Alcohol intake frequency: holidays/special occasions only Alcohol type: beer Patient Tobacco Use Status: Former Tobacco user e-Cigarette/Vaping Use: Never Used Second Hand Smoke Exposure: Yes Have you been hit, kicked, punched, or otherwise hurt by someone within the past year? If so, by whom?: No Are you DNR?: No Advance Directives: No Advance Directives Information Provided: Yes Advance Directives on File: No Recently lost weight without trying: No Eating poorly because of decreased appetite: No Nutrition Risks: No Nutritional Risk service: Yes ([employer]) Current occupational status: employed Current occupation: Unloading department Cognitive needs: No Hearing needs: No Vision needs: No Meds Allergies Allergy/AdvReac Type Severity Reaction Status Date / Time No Known Allergies Allergy Verified 11/17/21 13:10 Home Medications Medication Instructions Recorded Confirmed Last Taken Type aspirin 81 mg tablet,delayed 81 mg PO DAILY 02/06/20 11/25/21 Unknown History release Exam Airway Mallampati Class: III TM Dist: >3cm Neck ROM: Full Denture: Upper and Lower Loose/Missing/Broken Teeth: Yes Heart: freq PVCs Assessment and Plan Assessment Anesthesia Assessment: Anesthesia Plan Discussed Final Anesthetic Review Family History of Problems with Anesthesia: No History of Problems with Anesthesia: No NPO: Yes ASA Class: III Final Preanesthetic Review: No Changes in Pt Med Stat, Meds/Allgs Chart Reviewed, Consent Obtained/Reviewed and Anes Risks/Benef Reviewed Patient Risk: Intermediate Procedure Risk: Low Anesthetic Plan Anesthetic Plan: MAC: Disposition: Standard PACU
[2021-12-01] VITALS (7 sets, daily range): BP systolic 107–147; BP diastolic 66–81; PULSE 64–83; RESP 16–20; TEMP 35.9–36.9; O2SAT 96–99; BMI 35.4
[2021-12-01 08:33] LABS: Glucose, Whole Blood 105 mg/dL (60-115)
--- NOTE | 2021-12-01 09:40 | MHC.SHP ---
Pre-Procedural Eval Section A Date of Service: 12/01/21 The patient is an INPATIENT: No Changes since office visit: No Cold of Flu in the past 2 weeks, No New Medical Problems, No Changes in Medication and No Patient answered all questions The History & Physical has been completed within 30 days and I have reviewed it.: Yes Section B Chief Complaint: Non-pressure chronic ulcer,disorder of skin Allergies: Allergies Allergy/AdvReac Type Severity Reaction Status Date / Time No Known Allergies Allergy Verified 11/17/21 13:10 Plan I have reviewed the history and physical and performed a pertinent physical examination on my patient. No changes have occurred unless specified.
--- NOTE | 2021-12-01 10:30 | PM.OP ---
Brief Operative Note Date of Service: 12/01/21 Pre-op diagnosis: Chronic ulcer left heel, skin disease left heel Post-op diagnosis: same Procedure: Debridement of chronic ulcer left heel with biopsy of skin lesion Implants: None Surgeon: Margarita Castellon Anesthesia: MAC and local Estimated blood loss (mL): 5 Tourniquet time (min): 9 Pathology: other Condition: stable Disposition: PACU
[2021-12-01] MEDS: oxyCODONE HCl Immed Release 5 MG TABLET PO (10:58)
[2021-12-01] MEDS: Acetaminophen 325 MG TABLET 975 MG PO (10:59)
[2021-12-01] MEDS: fentaNYL citrate/PF 100 MCG/2 ML VIAL 25 MCG IVPUSH ×2 (11:20→11:25)
--- NOTE | 2021-12-01 22:42 | OP_ITS ---
SURGEON: Margarita Castellon DPM PREOPERATIVE DIAGNOSES: 1. Chronic ulcer, left heel. 2. Skin disease, left heel. POSTOPERATIVE DIAGNOSES: 1. Chronic ulcer, left heel. 2. Skin disease, left heel. PROCEDURE PERFORMED: 1. Debridement of left heel ulcer. 2. Punch biopsy of skin disease left heel. ESTIMATED BLOOD LOSS: Less than 5 cc. COMPLICATIONS: None. ANESTHESIA: Monitored anesthetic care with local consisting preoperatively of 0.5% bupivacaine and 2% lidocaine plain 18 cc total. INTERACTIVE PROJECT MANAGER: None. SPECIMENS: left heel HEMOSTASIS: Pneumatic ankle tourniquet set at 250 mmHg for 9 minutes. INDICATIONS FOR SURGERY: The patient had a painful nonhealing chronic ulcer of the left plantar heel has been present for several years. The ulcer is irregular in size and shape. Therefore, biopsy of the skin lesion was determined to be needed at this time. The patient recently diagnosed with diabetes, which could be a cause of his nonhealing ulceration. On the day of the procedure, there were no signs of infection to the left heel. Patient has been on antibiotics per culture results for the last couple weeks. PROCEDURE IN DETAIL: Patient was brought to the operating room, placed on the operating table in the supine position. The patient was given a prophylactic antibiotic of 2 g of cefazolin and the left foot was anesthetized and scrubbed, prepped, and draped in a sterile manner. The pneumatic ankle tourniquet was inflated after exsanguination of the left foot. Attention was directed to the left plantar heel where larger ulceration was noted with irregular borders and hyperkeratotic tissue without any signs of infection. The wound was debrided with a 15 blade and then a 10 blade to healthy granular tissue to the level of subcutaneous fat measuring approximately 60 x 60 mm with 3 mm depth. Pieces of the debrided ulcer were sent for Pathology and 2 punch biopsies, 1 proximal and 1 distal in the ulceration, 3.5 mm diameter were taken and sent for Pathology. Bacitracin was applied to the plantar wound and then foot was dressed with 4x4s, ABDs, fluffs, Kerlix, and cast padding and an Fabian bandage. The patient tolerated the procedure and anesthesia well. The pneumatic ankle tourniquet was deflated and prompt capillary refill was noted to all 5 digits. The patient was transferred to the recovery room with vital signs stable and vascular status at preoperative levels. Following a period of postoperative recovery, patient will be discharged home with written and oral postoperative instructions. Patient is to be nonweightbearing to the left heel. The patient does have an offloading boot; however, will also get a surgical shoe and crutches. Patient is to follow up in my office for all postoperative followup care and if any problems arise. Margarita Castellon DPM LP/LUCIAN / [id number] JAMARI
== END | disposition home or self-care (01) ==
PROVIDERS: PCP Internal Medicine; Visit Provider Podiatrist
PROC: (CPT 11104; principal; 2021-12-01 10:00)
DX: E11.622 Type 2 diabetes mellitus with other skin ulcer (principal); L97.922 Non-pressure chronic ulcer of unspecified part of left lower leg with fat layer exposed; L98.9 Disorder of the skin and subcutaneous tissue, unspecified; Z79.84 Long term (current) use of oral hypoglycemic drugs
CPT/HCPCS: 11104; 11043; 82947; 88304; 88305; J0690; J2795; J3010

== ENCOUNTER 2022-01-10 12:44 | Outpatient (RCR) | payer MEDICARE, SELFPAY | END 2022-09-29 09:32 | disposition home or self-care (01) | LOC: HO.WCC 12:44 | PROVIDERS: PCP Internal Medicine; Visit Provider Physician Assistant | DX: Z09 Encounter for follow-up examination after completed treatment for conditions other than malignant neoplasm (principal); E11.40 Type 2 diabetes mellitus with diabetic neuropathy, unspecified; Z79.82 Long term (current) use of aspirin; Z79.891 Long term (current) use of opiate analgesic; Z79.899 Other long term (current) drug therapy; Z86.31 Personal history of diabetic foot ulcer | CPT/HCPCS: 11042; 97597; 97602; 99212; 99213 ==

== ENCOUNTER 2022-02-28 10:10 | Outpatient (REF) | payer MEDICARE, SELFPAY ==
[2022-02-28 10:25] LABS: MANUAL DIFF FLAG NO
[2022-02-28 10:43] LABS: Basophils Absolute Auto 0.1 X10*3/uL (0.0-0.2); Basophils Percent Auto 0.7 % (0-2); Eosinophils Absolute Auto 0.4 X10*3/uL (0.0-0.4); Eosinophils Percent Auto 3.2 % (0-4); Hematocrit 44.1 % (42.0-52.0); Hemoglobin 14.9 g/dl (14.0-18.0); Imm Gran Abs Auto 0.08 X10*3/uL (0.00-0.03); Imm Gran Pct Auto 0.7 % (0.0-0.4); Lymphocytes Absolute Auto 3.5 X10*3/uL (1.2-4.9); Lymphocytes Percent Auto 29.3 % (20-40); Mean Corpuscular HGB Conc 33.8 g/dl (31.0-36.0); Mean Corpuscular Hemoglobin 29.6 pg (27.0-33.0); Mean Corpuscular Volume 87.7 fL (80.0-98.0); Mean Platelet Volume 10.6 fL (9.4-12.4); Monocytes Absolute Auto 0.8 X10*3/uL (0.1-1.2); Neutrophils Absolute Auto 7.1 x10*3/uL (2.0-8.3); Neutrophils Percent Auto 59.1 % (45-73); Platelet Count 238 X10*3/uL (160-400); Red Blood Count 5.03 X10*6/uL (4.60-5.80)
[2022-02-28 11:51] LABS: Alanine Aminotransferase 27 U/L (0-40); Albumin Level 4.4 g/dL (3.5-5.0); Alkaline Phosphatase 58 U/L (39-117); Anion Gap 14 (12-20); Aspartate Amino Transferase 18 U/L (5-37); Bilirubin Total 0.5 mg/dL (0.0-1.0); Blood Urea Nitrogen 29 mg/dL (9-16); Calcium 9.2 mg/dL (8.4-10.2); Carbon Dioxide 24 mmol/L (22-29); Chloride 108 mmol/L (96-108); Cholesterol 164 mg/dL; Estimated Glomerular Filt Rate > 60; Glucose Fasting 117 mg/dL (60-99); HDL Cholesterol 27 mg/dL; LDL Cholesterol Calculated 86 mg/dl; Potassium 4.6 mmol/L (3.3-5.1); Prostate Specific Antigen 1.46 ng/mL (<0.05-4.0); Sodium 141 mmol/L (135-145); TSH reflex Free T4 1.45 uIU/mL (0.32-4.0); Total Protein 7.2 g/dL (6.5-8.0); Triglycerides 257 mg/dL; Vitamin D 25-OH Total 23.5 ng/mL (>30)
[2022-02-28 12:15] LABS: Appearance Urine Clear; Color Urine Yellow; Glucose Urine UA Negative (Negative); Leukocyte Esterase Urine Negative (Negative); Nitrite Urine Negative (Negative); Specific Gravity - Urine 1.025 (1.005-1.025); Urine Blood Negative (Negative); Urine Ketones Negative (Negative); Urine Protein Trace mg/dL (Neg-Trace)
[2022-02-28 12:53] LABS: Microalbum/Creatinine Ratio Ur 16.9 ug/mg cr
== END 2022-02-28 10:11 | disposition home or self-care (01) ==
LOC: HO.LAB 10:10
PROVIDERS: PCP Internal Medicine; Visit Provider Internal Medicine
DX: Z00.00 Encounter for general adult medical examination without abnormal findings (principal); Z12.5 Encounter for screening for malignant neoplasm of prostate; N40.0 Benign prostatic hyperplasia without lower urinary tract symptoms; I10 Essential (primary) hypertension; E78.00 Pure hypercholesterolemia, unspecified; R30.0 Dysuria; E11.9 Type 2 diabetes mellitus without complications; E55.9 Vitamin D deficiency, unspecified
CPT/HCPCS: 36415; 80053; 80061; 81003; 82043; 82306; 84153; 84443; 85025

== ENCOUNTER → 2022-03-31 13:03 | Outpatient (BNVA) | payer MEDICARE, SELFPAY | PROVIDERS: PCP Internal Medicine; Referring Provider Podiatrist; Visit Provider Surgery | DX: E11.621 Type 2 diabetes mellitus with foot ulcer (principal); L97.429 Non-pressure chronic ulcer of left heel and midfoot with unspecified severity | CPT/HCPCS: 99202 ==

== ENCOUNTER 2022-05-03 05:44 | Day surgery (SDC) | payer MEDICARE, SELFPAY ==
[2022-04-28 09:56] VITALS: BMI 36.3
[2022-04-28 09:58] VITALS: BMI 36.3
[2022-05-03] VITALS (12 sets, daily range): BP systolic 120–143; BP diastolic 61–81; PULSE 58–84; RESP 16–17; TEMP 36.3–36.5; O2SAT 93–99
[2022-05-03] MEDS: Lactated Ringers 1,000 ML 100 ML IVCONT (06:29)
[2022-05-03 06:31] LABS: Glucose, Whole Blood 127 mg/dL (60-115)
--- NOTE | 2022-05-03 07:34 | P.HPSUR_ITS ---
Pre-Procedural Eval Section A Date of Service: 05/03/22 The patient is an INPATIENT: No Changes since office visit: Yes Patient answered all questions; No Cold of Flu in the past 2 weeks, No New Medical Problems and No Changes in Medication The History & Physical has been completed within 30 days and I have reviewed it.: No Section B Chief Complaint: Unspecified open wound, Non-pressure chronic ulcer Details of Present Illness: no change since initial visit Relevant Family History (Specify if Yes): No Relevant Social History: None Present Medications: see Short Stay Collaborative assessment Medical History: No relevant PMH History of Previous Operations: Relevant previous surgery/procedure and date(s) (previous heal debridement) Allergies: Allergies Allergy/AdvReac Type Severity Reaction Status Date / Time No Known Allergies Allergy Verified 03/31/22 13:21 Review of Systems Sugical H&P ROS: Negative: Constitution, Cardiovascular, Respiratory, Neurol ogical, Psychiatric, Hem-Onc, Allergic/Immunologic, Gastrointestinal, Genitourinary, Musculoskeletal, Integumentary, Endocrine and Eyes/Ears/Nose/Throat Exam Surgical H&P Exam: Normal: HEENT, Normal: Heart, Normal: Lungs, Normal: Extremities, Normal: Abdomen, Normal: Skin and Normal: Neurological Plan Diagnosis/Plan: Unchanged I have reviewed the history and physical and performed a pertinent physical examination on my patient. No changes have occurred unless specified. Time Spent With Patient Time: Total time managing care of this patient today ____ minutes.
--- NOTE | 2022-05-03 08:27 | P.OP_ITS ---
Operative Note Operative Note Date of Service: 05/03/22 Narrative: Preoperative diagnosis: Nonhealing ulcer left foot Postoperative diagnosis: same Procedure: debridement of skin bone left heel ulcer Surgeon: Pascual Temple MD Order Dispatcher Chief: none Anesthesia: general LMA Indications for procedure: nonhealing and persistently draining wound with probable osteomyelitis involving the fight of calcaneus Operative findings: osteophyte of calcaneus in center of wound debrided with r ongeur Specimen: wound culture calcaneus osteophyte, calcaneus osteophyte for pathology Estimated blood loss: 10 mL Complications: none Procedure details: patient was brought to the OR placed in a supine position. After administering general anesthesia the patient's right foot was prepped with Betadine and draped in a sterile fashion. A surgical time-out was called the consent confirmed. Patient received preoperative antibiotics and Venodyne boots were in place. Local anesthesia consisting of 0.5% Sensorcaine with epinephrine was then infiltrated around the persistent wound. Fifteen blade was then used to saucerize the persisting callus at the heel plantar surface. An area of skin and callus measuring 5 cm in diameter was excised down to subcutaneous tissue. Necrotic skin and subcutaneous tissue was debrided down to where a pointed osteophyte emanating from the calcaneus at the center of the open wound was identified. electrocautery was then used to further define the osteophyte and a rongeur used to trim the point away from the open wound. A rasp was then used to smooth the edge of the bone. Portions of the bone were sent for culture and pathology. Wounds were then thoroughly irrigated with saline solution. Wound was then packed with half-inch iodoform gauze. Wounds were dressed with fluff gauze, Kerlix and Fabian bandage. Patient tolerated the procedure well. Sponge, instrument, and needle counts reported as correct. Patient was transferred to PACU in stable condition.
[2022-05-03] MEDS: fentaNYL citrate/PF 100 MCG/2 ML VIAL 25 MCG IVPUSH ×2 (08:53→08:58)
[2022-05-03] MEDS: oxyCODONE HCl Immed Release 5 MG TABLET PO (08:55)
== END 2022-05-03 10:42 | disposition home or self-care (01) ==
PROVIDERS: PCP Internal Medicine; Visit Provider Surgery
PROC: (CPT 11044; principal; 2022-05-03 07:30)
DX: S91.302A Unspecified open wound, left foot, initial encounter (principal); E11.621 Type 2 diabetes mellitus with foot ulcer; L97.426 Non-pressure chronic ulcer of left heel and midfoot with bone involvement without evidence of necrosis; M25.775 Osteophyte, left foot; Z79.84 Long term (current) use of oral hypoglycemic drugs; I10 Essential (primary) hypertension; E78.2 Mixed hyperlipidemia; E66.9 Obesity, unspecified; Z68.36 Body mass index [BMI] 36.0-36.9, adult; Z79.82 Long term (current) use of aspirin; Z79.1 Long term (current) use of non-steroidal anti-inflammatories (NSAID); Z79.899 Other long term (current) drug therapy; Z87.891 Personal history of nicotine dependence
CPT/HCPCS: 11044; 82947; 87070; 87073; 87077; 87186; 87205; 88304; 88311; J0690; J1885; J2250; J2405; J3010

== ENCOUNTER → 2022-05-05 09:06 | Outpatient (BNVA) | payer MEDICARE, SELFPAY | PROVIDERS: PCP Internal Medicine; Visit Provider Surgery | DX: Z13.89 Encounter for screening for other disorder (principal) ==

== ENCOUNTER → 2022-05-19 13:01 | Outpatient (BNVA) | payer MEDICARE, SELFPAY | PROVIDERS: PCP Internal Medicine; Referring Provider Internal Medicine; Visit Provider Surgery | DX: Z13.89 Encounter for screening for other disorder (principal) ==

== ENCOUNTER → 2022-06-16 11:31 | Outpatient (BNVA) | payer MEDICARE, SELFPAY | PROVIDERS: PCP Internal Medicine; Referring Provider Internal Medicine; Visit Provider Surgery ==

== ENCOUNTER → 2022-07-14 11:06 | Outpatient (BNVA) | payer MEDICARE, SELFPAY | PROVIDERS: PCP Internal Medicine; Visit Provider Surgery ==

== ENCOUNTER 2022-09-22 15:05 | Outpatient (REF) | payer MEDICARE, SELFPAY | END 2022-09-22 15:06 | disposition home or self-care (01) | LOC: HO.HMGCX 15:05 | PROVIDERS: PCP Internal Medicine; Visit Provider Internal Medicine | DX: S90.32XA Contusion of left foot, initial encounter (principal) | CPT/HCPCS: 73630 ==

== ENCOUNTER 2022-09-28 14:30 | Outpatient (AMB) | payer MEDICARE, SELFPAY ==
--- NOTE | 2022-09-28 14:32 | A.OFFPC_ITS ---
Vital Signs 09/28/22 14:34 Height 5 ft 10 in Weight 245 lb BMI 35.2 BP 160/82 H Blood Pressure Location Lt brachial Position Sitting Pulse 57 Pulse Source Pulse Oximeter Pulse Oximetry (%) 98 Oxygen Delivery Method Room Air Intake Visit Reasons: swollen, painful foot Intake Note: pt is here for swollen foot with pain Manager Of Employee Relations Required: No Accompanied by: Self / Same As Patient Allergies No Known Allergies Allergy (Verified 09/28/22 15:10) Medication List - Last Reconciled 09/28/22 by Oscar Mcknight PA-C amlodipine 10 mg PO DAILY aspirin 81 mg PO DAILY blood sugar diagnostic As directed check the blood sugar once a day blood sugar diagnostic ([facility] Ver[facility] test strips) As directed once a day blood-glucose meter ([facility] Ver[facility] Flex Meter) As directed once a day gabapentin 300 mg PO BID 30 days ibuprofen 800 mg PO TID PRN [Kneeling Scooter As directed] lancets ([facility] Delica Lancets) As directed once a day lisinopril 40 mg PO DAILY 90 days meloxicam 15 mg PO DAILY PRN 90 days metformin 1,000 mg PO DAILY metoprolol succinate ER 100 mg PO DAILY terbinafine HCl 250 mg PO DAILY tramadol 50 mg PO BID PRN 30 days Tobacco use date assessed: 09/28/22 Fall risk assessment: 2 + Falls in past year Last assessed Fall Risk: 09/28/22 Dental Screening Dental Screen Date: 09/28/22 Did you have a dental visit in the last 12 months?: Yes Did you have a dental problem in the last 6 months where you did not have access to dental care?: No Was dental information given to patient?: Patient has dentist HPI swollen, painful foot HPI Details Patient is a 67 year male here today for problem visit. Recently seen at the walk-in clinic for left foot pain x-rays showing degenerative changes no soft tissue swelling. Continues to have pain worse when bearing weight on his left foot. Has a history of a left calcaneal spur with callus formation over his plantar region. Was seeing wound management for his left foot callus to which has completely healed though still has large callus over left heel. He has been using ibuprofen and tramadol with only minimal relief of his pain. Pain again worse when bearing weight on left foot. [facility] Medical History Benign essential hypertension Diabetes Dyslipidemia Insomnia Mixed hyperlipidemia Obesity (BMI 30-39.9) Osteoarthritis Surgical History History of foot surgery History of foot surgery (05/03/22) History of inguinal hernia repair Family History Father CAD (coronary artery disease) Acute CVA (cerebrovascular accident) Hypertension Diabetes Stroke Mother Hypertension Acute CVA (cerebrovascular accident) Intestinal cancer Sister Hypertension Von Willebrand disease Brother Hypertension Social History Housing: House Are you a primary child care education coordinator to a significant other at home: No Do you presently have visiting nurse or other home services: No Alcohol intake: current Alcohol intake frequency: holidays/special occasions only Alcohol type: beer Patient Tobacco Use Status: Former Tobacco user Tobacco use type: Cigarette e-Cigarette/Vaping Use: Never Used Second Hand Smoke Exposure: Yes service: Yes ([employer]) Current occupational status: employed Current occupation: Unloading department Cognitive needs: No Hearing needs: No Vision needs: No Questionnaire Thrive Questionnaire Date Thrive assessed: 08/30/22 CHANO-7 AMB Questionnaire CHANO-7 Date CHANO - 7 assessed: 08/30/22 Source: Developed by Drs. Marco A Calderon, Peg Champion, Abundio Mo and colleagues, with an educational jed from [employer]. Review of Systems Const Denies headache(s) Eyes Denies loss of vision ENT Denies vertigo, Denies dizziness, Denies headache(s) and Denies sore throat Card Denies chest pain, Denies leg edema and Denies lightheadedness Resp Denies cough, Denies hemoptysis and Denies wheezing GI Denies abdominal pain, Denies melena, Denies constipation, Denies diarrhea and Denies vomiting Denies dysuria, Denies urinary frequency and Denies urinary urgency Musc Denies arthralgias, Denies joint swelling, Denies numbness and Denies tingling Neuro Denies Abnormal speech present, Denies behavioral changes, Denies vertigo, Denies dizziness, Denies headache(s), Denies loss of vision, Denies memory loss, Denies numbness and Denies tingling Psych Denies anxiety, Denies behavioral changes, Denies depression, Denies memory loss and Denies panic attacks Jaime/Lymph Denies easy bleeding and Denies easy bruising Aller/Immun Denies wheezing Physical exam (Primary Care) Vital Signs: Last Vital Signs Pulse 57 09/28/22 14:34 BP 160/82 H 09/28/22 14:34 Pulse Ox 98 09/28/22 14:34 Oxygen Delivery Method Room Air 09/28/22 14:34 BMI result Body Mass Index 35.2 Tobacco/Smoking Status: Tobacco use Status Tobacco use date assessed 09/28/22 09/28/22 14:34 Patient Tobacco Use Status Former Tobacco user 09/28/22 14:34 Tobacco use type Cigarette 09/28/22 14:34 e-Cigarette/Vaping Use Never Used 09/28/22 14:34 Thrive Assessment: Date of Thrive Assessment Date Thrive assessed 08/30/22 09/28/22 14:34 Const General: healthy appearing, no acute distress, alert and awake Nutritional Appearance: well nourished Orientation/consciousness: oriented to person, oriented to place and oriented to time HENMT Ears: TM's normal bilaterally General nose exam: Normal nasal mucous membranes and turbinates present Eyes Conjunctivae: conjunctivae normal Sclerae: sclerae normal Pupils: Equal, round and reactive pupils present Neck Neck: Yes no lymphadenopathy and Yes no JVD Thyroid: Thyroid normal Carotids: no bruits Resp Effort & Inspection: normal respiratory effort and not tachypneic Auscultation: no crackles, no rales, no rhonchi and no wheezes Cardio Rate: regular rate Rhythm: regular rhythm Heart sounds: no murmurs and normal S1 and S2 GI Palpation (GI): Soft to palpation, nontender, no hepatomegaly and no splenomegaly Auscultation: normal bowel sounds Skin General skin exam: no rashes or lesions noted and dry skin Neuro General: oriented to person, oriented to place and oriented to time Cranial nerves: Yes Equal, round and reactive pupils present Speech: No Abnormal speech present Gait exam (Neuro): Normal gait present Motor exam (neuro): no tremor noted Extrem Right upper extremity: full ROM Left upper extremity: full ROM Right lower extremity: full ROM; no edema Left lower extremity: full ROM; no edema Ankle/foot/toe images: 1. LARGE CALLUS FORMATION OVER LEFT HEEL, NO DRAINAGE OR ERYTHEMA NOTED, SOME MINIMAL EDEMA NOTED GLOBALLY OVER FOOT. NO TENDERNESS TO PALPATION. GOOD CAP REFILL TO ALL TOES. GOOD SENSATION TO LIGHT TOUCH OVER ALL TOES WELL. Psych Mental Status: mental status grossly normal Speech and movement: Normal speech and movement present Affect: normal affect Attitude: cooperative Thought process: Normal thought process present Assessment and Plan Assessment & Plan (1) Plantar callus: Code(s): L84 - Corns and callosities Plan: Patient has large plantar chronic callus over his left foot. Has been having increasing pain and swelling in his left foot. X-rays with degenerative changes though no soft tissue swelling. Physical exam without any evidence of acute gout flare or cellulitis. Will supply patient with prednisone taper for the inflammation and advised on conservative treatment such as elevation, cool compress and nonweightbearing until sees Podiatry. (2) Foot pain, left: Code(s): M79.672 - Pain in left foot Orders: Referrals Podiatry Referral L84 - Corns and callosities, M79.672 - Pain in left foot Medications: New prednisone 10 mg PO DAILY 9 days 18 tabs 0RF M79.672 - Pain in left foot Coding Level of Care Code Est Pt Level 3 (23673) Diagnoses Plantar callus L84 Foot pain, left M79.672
[2022-09-28 14:34] VITALS: BP 160/82; PULSE 57; O2SAT 98; BMI 35.2
== END 2022-09-28 15:30 | disposition home or self-care (01) ==
PROVIDERS: PCP Internal Medicine; Visit Provider Physician Assistant
DX: L84 Corns and callosities (principal); M79.672 Pain in left foot
CPT/HCPCS: 99213

== ENCOUNTER 2023-01-02 12:09 | Outpatient (AMB) | payer MEDICARE, SELFPAY ==
[2023-01-02 12:32] VITALS: BP 126/78; PULSE 68; O2SAT 98; BMI 35.3
--- NOTE | 2023-01-02 12:32 | MHC.PC.OV ---
Vital Signs 01/02/23 12:32 Height 5 ft 10 in Weight 246 lb BMI 35.3 BP 126/78 Blood Pressure Location Lt brachial Position Sitting Pulse 68 Pulse Source Pulse Oximeter Pulse Oximetry (%) 98 Oxygen Delivery Method Room Air Intake Visit Reasons: DM, HTN, hyperlipidemia Refinisher Required: No Accompanied by: Self / Same As Patient Allergies No Known Allergies Allergy (Verified 01/02/23 12:58) Medication List - Last Reconciled 01/02/23 by Marquez Jones MD amlodipine 10 mg PO DAILY aspirin 81 mg PO DAILY blood sugar diagnostic As directed check the blood sugar once a day blood sugar diagnostic ([employer] Verio test strips) As directed once a day blood-glucose meter ([employer] Verio Flex Meter) As directed once a day gabapentin 300 mg PO BID 30 days ibuprofen 800 mg PO TID PRN [Kneeling Scooter As directed] lancets ([employer] Delica Lancets) As directed once a day lisinopril 40 mg PO DAILY 90 days meloxicam 15 mg PO DAILY PRN 90 days metformin 1,000 mg PO DAILY metoprolol succinate ER 100 mg PO DAILY prednisone 10 mg PO DAILY 9 days terbinafine HCl 250 mg PO DAILY tramadol 50 mg PO BID PRN 30 days Tobacco use date assessed: 01/02/23 Fall risk assessment: No Falls in past year Last assessed Fall Risk: 01/02/23 Dental Screening Dental Screen Date: 01/02/23 Did you have a dental visit in the last 12 months?: No Did you have a dental problem in the last 6 months where you did not have access to dental care?: No Was dental information given to patient?: No HPI DM, HTN, hyperlipidemia HPI Details Patient comes in today for his follow up visit States that he feels okay He had the left nasal lesion excised by [facility] (Dr. Baugh) last week - appears to have had a Mohs procedure done States that he was told that the lesion was a basal cell carcinoma and he was reassured that the margins of excision were clear of cancer He currently still has the chronic ulcer on his left heel - was being followed up by the wound clinic and by podiatry and states that he was discharged from the wound clinic back in September 2022 and was advised to call them back if needed again Was reportedly seen by Dr. Dalton recently for podiatry follow up and was reportedly told that they do not know what else can be done to help the ulcer heal up completely States that he currently has no increased drainage or discharge from his ulcer but he still has to Keep trimming and cutting the edges out regularly on his own He denies any fever, headaches or dizziness Denies any chest pains, no SOB No nausea/vomiting, no abdominal pain No change in bowel habits noted Has not gotten his follow up labs done yet - states that he will try to get them, as well as his other doctors' labs, done altogether sometime in the next day or two [facility] Medical History Diabetes Mixed hyperlipidemia Dyslipidemia Obesity (BMI 30-39.9) Insomnia Osteoarthritis Benign essential hypertension Surgical History History of foot surgery (05/03/22) History of foot surgery History of inguinal hernia repair Family History Father CAD (coronary artery disease) Acute CVA (cerebrovascular accident) Hypertension Diabetes Stroke Mother Hypertension Acute CVA (cerebrovascular accident) Intestinal cancer Sister Hypertension Von Willebrand disease Brother Hypertension Social History Housing: House Are you a primary livestock caretaker to a significant other at home: No Do you presently have visiting nurse or other home services: No Alcohol intake: current Alcohol intake frequency: holidays/special occasions only Alcohol type: beer Patient Tobacco Use Status: Former Tobacco user Tobacco use type: Cigarette e-Cigarette/Vaping Use: Never Used Second Hand Smoke Exposure: Yes service: Yes ([employer]) Current occupational status: employed Current occupation: Unloading department Cognitive needs: No Hearing needs: No Vision needs: No Questionnaire PHQ-9 Over the last 2 weeks, how often have you been bothered by any of the following problems? 1. Little interest or pleasure in doing things: not at all 2. Feeling down, depressed, or hopeless: not at all 3. Trouble falling or staying asleep, or sleeping too much: not at all 4. Feeling tired or having little energy: not at all 5. Poor appetite or overeating: not at all 6. Feeling bad about yourself - or that you are a failure or have let yourself or your family down: not at all 7. Trouble concentrating on things, such as reading the newspaper or watching television: not at all 8. Moving or speaking so slowly that other people could have noticed. Or the opposite - being so fidgety or restless that you have been moving around a lot more than usual: not at all 9. Thoughts that you would be better off or of hurting yourself in some way: not at all Total score: 0 Depression Screening Interpretation: Negative Depression Screening Done: Yes 59680 - PHQ-9 Billing: Yes Source: Developed by Drs. Marco A Calderon, Peg Champion, Abundio Mo and colleagues, with an educational jed from [employer]. Thrive Questionnaire Date Thrive assessed: 01/02/23 I am a: Patient What is your living situation today?: I have a steady place to live Within the past 12 months, did the food you bought not last and you didn't have the money to get more?: Never true Within the past 12 months, did you worry whether your food would run out before you got money to buy more?: Never true Do you have trouble paying for medicines?: No Do you have trouble getting transportation to medical appointments?: No Do you have trouble paying your heating and electricity bill?: No Do you have trouble taking care of your child, family member or friend?: No Do you have trouble with day-to-day activities such as bathing, preparing meals, shopping, managing finances, etc.?: No Are you currently unemployed and looking for a job?: No Are you interested in more education?: No Please select the resources that you would like help with: None Currently or been in a relationship where the following occur: no concerns reported AUDIT C Alcohol Use Questionnaire (AUDIT-C) 1. How often do you have a drink containing alcohol?: Monthly or less 2. How many drinks containing alcohol do you have on a typical day when you are drinking?: 1 or 2 3. How often do you have six or more drinks on one occasion?: Never Total Score: 1 Score Reviewed/Action Taken: Yes CHANO-7 AMB Questionnaire CHANO-7 Date CHANO - 7 assessed: 01/02/23 Feeling nervous, anxious, or on edge: 0 = Not at all Not being able to stop or control worryin = Not at all Worrying too much about different things: 0 = Not at all Trouble relaxin = Not at all Being so restless that it is hard to sit still: 0 = Not at all Becoming easily annoyed or irritable: 0 = Not at all Feeling afraid as if something awful might happen: 0 = Not at all Total CHANO-7 score (0-4 normal; 5-9 mild; 10-14 moderate; 15-21 severe): 0 Source: Developed by Drs. Marco A Calderon, Peg Champion, Abundio Mo and colleagues, with an educational jed from [employer]. Review of Systems Const Denies fatigue, Denies fever(s), Denies headache(s) and Denies malaise ENT Denies dysphagia, Denies dizziness, Denies headache(s), Denies odynophagia and Denies sore throat Card Denies chest pain, Denies rapid heart rate, Denies irregular heart rhythm, Denies palpitations and Denies dyspnea Resp Denies chest congestion, Denies cough, Denies dyspnea and Denies wheezing GI Denies abdominal pain, Denies constipation, Denies dysphagia, Denies heartburn, Denies diarrhea, Denies nausea, Denies odynophagia and Denies vomiting Denies difficulty urinating and Denies urinary frequency Musc Denies back pain, Reports arthralgias (both ankles - chronic), Denies joint swelling and Denies radiating pain into limb Skin/Breast Details: (+) chronic wound on left heel; raised lesion on the left side of the nose Neuro Denies dizziness, Denies headache(s) and Denies paresthesias Endo Denies fatigue and Denies palpitations Aller/Immun Denies wheezing Physical exam (Primary Care) Vital Signs: Last Vital Signs Pulse 68 01/02/23 12:32 BP 126/78 01/02/23 12:32 Pulse Ox 98 01/02/23 12:32 Oxygen Delivery Method Room Air 01/02/23 12:32 BMI result Body Mass Index 35.3 Tobacco/Smoking Status: Tobacco use Status Tobacco use date assessed 01/02/23 01/02/23 12:33 Patient Tobacco Use Status Former Tobacco user 01/02/23 12:33 Tobacco use type Cigarette 01/02/23 12:33 e-Cigarette/Vaping Use Never Used 01/02/23 12:33 PHQ-9: PHQ-9 Score PHQ-9: Total score 0 01/02/23 12:53 Depression Screening Interpretation: Negative Thrive Assessment: Date of Thrive Assessment Date Thrive assessed 01/02/23 01/02/23 12:33 Currently or been in a relationship where the following occur: no concerns reported Const General: no acute distress and alert HENMT Ears: TM's normal bilaterally and EAC's normal Throat: Yes posterior oropharynx normal and Yes tonsils normal (no TP congestion) Neck Neck: Yes no lymphadenopathy and Yes supple Resp Auscultation: clear to auscultation bilaterally, no rales and no wheezes Cardio Rate: regular rate Rhythm: regular rhythm Heart sounds: no murmurs GI Palpation (GI): Soft to palpation and nontender Auscultation: normal bowel sounds General: Yes no CVA tenderness Back/Spine/Pelvis Back: no CVA tenderness Thoracic/Lumbar Spine: thoracic and lumbar spine normal to inspection Skin Other: (+) healing surgical wound on the left side of the nose Rashes: no rashes Extrem General: Yes no clubbing, cyanosis or edema Left lower extremity: foot ((+) chronic open wound over the left heel) Results AMB Hemoglobin A1c AMB Hemoglobin A1c 5.5 % Last Edit by Grady Lopez on 01/02/23 12:53 Results Reviewed Results Reviewed: Laboratory Last Values Hgb A1c (Clinic) 5.5 % (4.0-6.0) 01/02/23 12:52 Assessment and Plan Assessment & Plan (1) Chronic ulcer of left heel: Code(s): L97.429 - Non-pressure chronic ulcer of left heel and midfoot with unspecified severity Qualifiers: Non-pressure ulcer stage: unspecified non-pressure ulcer stage Qualified Code(s): L97.429 - Non-pressure chronic ulcer of left heel and midfoot with unspecified severity Plan: Follow up with podiatry (Drs. Margarita Castellon or Jaret Dalton) as scheduled Has been going to the Wound Clinic here at [facility] but was discharged back in September 2022; was advised to call at any time if needed Is also seeing dermatology for follow up of this as well as his left nasal lesion, which was a BCC and was recently excised (2) DMII (diabetes mellitus, type 2): Code(s): E11.9 - Type 2 diabetes mellitus without complications Qualifiers: Diabetes mellitus intermodal customer service insulin use: without intermodal customer service use Diabetes mellitus complication status: with neurologic complications Diabetes mellitus complication detail: with polyneuropathy Qualified Code(s): E11.42 - Type 2 diabetes mellitus with diabetic polyneuropathy Plan: In-office HgbA1c done today is at 5.5%; was at 5.6% when last checked in February 2022 - goal is < 7.0% Reinforced diabetic diet Continue Metformin ER 1000 mg BID (3) Benign essential hypertension: Code(s): I10 - Essential (primary) hypertension Plan: Reinforced low sodium diet - goal is systolic BP of at least 130 mm or less Continue Lisinopril 40 mg QD, Amlodipine 10 mg QD and Metoprolol ER 100 mg QD (4) Mixed hyperlipidemia: Code(s): E78.2 - Mixed hyperlipidemia Plan: Reinforced low cholesterol diet Will recheck his fasting lipids and labs [facility]ER[facility] for follow up (5) Osteoarthritis: Code(s): M19.90 - Unspecified osteoarthritis, unspecified site Qualifiers: Osteoarthritis location: knee Osteoarthritis type: primary Laterality: bilateral Qualified Code(s): M17.0 - Bilateral primary osteoarthritis of knee Plan: Continue Tramadol 50 mg BID PRN and Meloxicam 15 mg QD PRN; is also on Gabapentin 300 mg BID Follow up with orthopedics as scheduled (6) External nasal lesion: Code(s): L98.9 - Disorder of the skin and subcutaneous tissue, unspecified Plan: S/P Mohs surgery with [facility] last week - was advised that the lesion was a BCC but the surgical margins were all clear Follow up with dermatology as scheduled (7) Obesity (BMI 30-39.9): Code(s): E66.9 - Obesity, unspecified Plan: Reinforced diet/exercise as tolerated/lose weight Plan Follow up in 4 months Orders: Orders AMB Hemoglobin A1c Today Z13.9 - Encounter for screening, unspecified Coding Level of Care Code Est Pt Level 4 (67527) Diagnoses Chronic heel ulcer, left, with unspecified severity L97.429 Non-pressure ulcer stage: unspecified non-pressure ulcer stage Type 2 diabetes mellitus with diabetic polyneuropathy, without long-term current use of insulin E11.42 Diabetes mellitus fci insulin use: without intermodal customer service use Diabetes mellitus complication status: with neurologic complications Diabetes mellitus complication detail: with polyneuropathy Benign essential hypertension I10 Mixed hyperlipidemia E78.2 Primary osteoarthritis of both knees M17.0 Osteoarthritis location: knee Osteoarthritis type: primary Laterality: bilateral External nasal lesion L98.9 Obesity (BMI 30-39.9) E66.9
== END 2023-01-02 13:36 | disposition home or self-care (01) ==
PROVIDERS: PCP Internal Medicine; Visit Provider Internal Medicine
DX: E11.42 Type 2 diabetes mellitus with diabetic polyneuropathy (principal); I10 Essential (primary) hypertension; E78.2 Mixed hyperlipidemia
CPT/HCPCS: 83036; 99214

== ENCOUNTER 2023-03-02 14:53 | Outpatient (AMB) | payer MEDICARE, SELFPAY ==
[2023-03-02 14:59] VITALS: BP 128/76; PULSE 66; O2SAT 97; BMI 34.9
--- NOTE | 2023-03-02 14:59 | A.OFFPC_ITS ---
Vital Signs 03/02/23 14:59 Height 5 ft 10 in Weight 243 lb BMI 34.9 BP 128/76 Blood Pressure Location Lt brachial Position Sitting Pulse 66 Pulse Source Pulse Oximeter Pulse Oximetry (%) 97 Oxygen Delivery Method Room Air Intake Visit Reasons: Annual Physical Tar Man Required: No Accompanied by: Self / Same As Patient Allergies No Known Allergies Allergy (Verified 03/02/23 15:10) Medication List - Last Reconciled 03/02/23 by Marquez Jones MD amlodipine 10 mg PO DAILY aspirin 81 mg PO DAILY blood sugar diagnostic As directed check the blood sugar once a day blood sugar diagnostic ([employer] test strips) As directed once a day blood-glucose meter ([employer] Flex Meter) As directed once a day doxycycline monohydrate 100 mg PO BID doxycycline monohydrate 100 mg PO BID 10 days gabapentin 1 capsule in AM and 2 capsules at bedtime orally; 30 days ibuprofen 800 mg PO TID PRN [Kneeling Scooter As directed] lancets As directed once a day lisinopril 40 mg PO DAILY 90 days meloxicam 15 mg PO DAILY PRN 90 days metformin 1,000 mg PO DAILY metoprolol succinate ER 100 mg PO DAILY prednisone 10 mg PO DAILY 9 days terbinafine HCl 250 mg PO DAILY tramadol 50 mg PO BID PRN 30 days Tobacco use date assessed: 03/02/23 Fall risk assessment: No Falls in past year Last assessed Fall Risk: 03/02/23 Dental Screening Dental Screen Date: 03/02/23 Did you have a dental visit in the last 12 months?: Yes Did you have a dental problem in the last 6 months where you did not have access to dental care?: No Was dental information given to patient?: Patient has dentist HPI Annual Physical HPI Details Patient comes in today for his annual physical examination States that he feels okay but he was recently just diagnosed with some cancer in his left heel area where his chronic non-healing ulcer is He was also started recently on oral Doxycycline, presumably for some infection, possibly due to MRSA but unclear at this time whether he was diagnosed with osteomyelitis or not States that he is currently being scheduled for excision surgery of his left heel in March 2023 but there is no definite date yet as of now - will be seeing surgeon in early March 2023 He denies any fever, headaches or dizziness Denies any chest pains, no SOB No nausea/vomiting, no abdominal pain No change in bowel habits noted Denies any acute urinary symptoms He has never has a screening colonoscopy done in the past by personal choice and he remains hesitant to go for a formal screening colonoscopy He still has not been able to get his previously ordered labs done yet Also needs his Tramadol Rx refilled - states that he is still experiencing a lot of pain despite his current meds PFSH Medical History Diabetes Mixed hyperlipidemia Dyslipidemia Obesity (BMI 30-39.9) Insomnia Osteoarthritis Benign essential hypertension Surgical History History of foot surgery (05/03/22) History of foot surgery History of inguinal hernia repair Family History Father CAD (coronary artery disease) Acute CVA (cerebrovascular accident) Hypertension Diabetes Stroke Mother Hypertension Acute CVA (cerebrovascular accident) Intestinal cancer Sister Hypertension Von Willebrand disease Brother Hypertension Social History Housing: House Are you a primary home care liaison to a significant other at home: No Do you presently have visiting nurse or other home services: No Alcohol intake: current Alcohol intake frequency: holidays/special occasions only Alcohol type: beer Comment: tolerable Patient Tobacco Use Status: Former Tobacco user Tobacco use type: Cigarette e-Cigarette/Vaping Use: Never Used Second Hand Smoke Exposure: Yes service: Yes ([employer]) Current occupational status: employed Current occupation: Unloading department Cognitive needs: No Hearing needs: No Vision needs: No Questionnaire PHQ-9 Over the last 2 weeks, how often have you been bothered by any of the following problems? 1. Little interest or pleasure in doing things: not at all 2. Feeling down, depressed, or hopeless: not at all 3. Trouble falling or staying asleep, or sleeping too much: not at all 4. Feeling tired or having little energy: not at all 5. Poor appetite or overeating: not at all 6. Feeling bad about yourself - or that you are a failure or have let yourself or your family down: not at all 7. Trouble concentrating on things, such as reading the newspaper or watching television: not at all 8. Moving or speaking so slowly that other people could have noticed. Or the opposite - being so fidgety or restless that you have been moving around a lot more than usual: not at all 9. Thoughts that you would be better off or of hurting yourself in some way: not at all Total score: 0 Depression Screening Interpretation: Negative Depression Screening Done: Yes 73175 - PHQ-9 Billing: Yes Source: Developed by Drs. Marco A Calderon, Peg Champion, Abundio Mo and colleagues, with an educational jed from [employer]. Thrive Questionnaire Date Thrive assessed: 03/02/23 I am a: Patient What is your living situation today?: I have a steady place to live Within the past 12 months, did the food you bought not last and you didn't have the money to get more?: Never true Within the past 12 months, did you worry whether your food would run out before you got money to buy more?: Never true Do you have trouble paying for medicines?: No Do you have trouble getting transportation to medical appointments?: No Do you have trouble paying your heating and electricity bill?: No Do you have trouble taking care of your child, family member or friend?: No Do you have trouble with day-to-day activities such as bathing, preparing meals, shopping, managing finances, etc.?: No Are you currently unemployed and looking for a job?: No Are you interested in more education?: No Please select the resources that you would like help with: None Currently or been in a relationship where the following occur: no concerns reported AUDIT C Alcohol Use Questionnaire (AUDIT-C) 1. How often do you have a drink containing alcohol?: Monthly or less 2. How many drinks containing alcohol do you have on a typical day when you are drinking?: 1 or 2 3. How often do you have six or more drinks on one occasion?: Never Total Score: 1 Score Reviewed/Action Taken: Yes CHANO-7 AMB Questionnaire CHANO-7 Date CHANO - 7 assessed: 03/02/23 Feeling nervous, anxious, or on edge: 0 = Not at all Not being able to stop or control worryin = Not at all Worrying too much about different things: 0 = Not at all Trouble relaxin = Not at all Being so restless that it is hard to sit still: 0 = Not at all Becoming easily annoyed or irritable: 0 = Not at all Feeling afraid as if something awful might happen: 0 = Not at all Total CHANO-7 score (0-4 normal; 5-9 mild; 10-14 moderate; 15-21 severe): 0 Source: Developed by Drs. Marco A Calderon, Peg Champion, Abundio Mo and colleagues, with an educational jed from [employer]. Review of Systems Const Denies chills, Denies fatigue, Denies fever(s), Denies headache(s) and Denies malaise ENT Denies dysphagia, Denies dizziness, Denies otalgia, Denies headache(s), Denies odynophagia and Denies sore throat Card Denies chest pain, Denies rapid heart rate, Denies irregular heart rhythm, Denies palpitations and Denies dyspnea Resp Denies chest congestion, Denies cough, Denies dyspnea and Denies wheezing GI Denies abdominal pain, Denies constipation, Denies dysphagia, Denies heartburn, Denies diarrhea, Denies nausea, Denies odynophagia and Denies vomiting Denies difficulty urinating, Denies nocturia and Denies urinary frequency Musc Denies back pain, Reports arthralgias (over both ankles - chronic), Denies joint swelling and Denies radiating pain into limb Skin/Breast Details: (+) chronic open wound on left heel Denies rash Neuro Denies dizziness, Denies headache(s) and Denies paresthesias Endo Denies fatigue and Denies palpitations Aller/Immun Denies wheezing Physical exam (Primary Care) Vital Signs: Last Vital Signs Pulse 66 03/02/23 14:59 BP 128/76 03/02/23 14:59 Pulse Ox 97 03/02/23 14:59 Oxygen Delivery Method Room Air 03/02/23 14:59 BMI result Body Mass Index 34.9 Tobacco/Smoking Status: Tobacco use Status Tobacco use date assessed 03/02/23 03/02/23 15:07 Patient Tobacco Use Status Former Tobacco user 03/02/23 15:07 Tobacco use type Cigarette 03/02/23 15:07 e-Cigarette/Vaping Use Never Used 03/02/23 15:07 PHQ-9: PHQ-9 Score PHQ-9: Total score 0 03/02/23 15:26 Depression Screening Interpretation: Negative Thrive Assessment: Date of Thrive Assessment Date Thrive assessed 03/02/23 03/02/23 15:07 Currently or been in a relationship where the following occur: no concerns reported Const General: no acute distress and alert HENMT Ears: TM's normal bilaterally and EAC's normal Throat: Yes posterior oropharynx normal and Yes tonsils normal (no TP congestion) Neck Neck: Yes no lymphadenopathy and Yes supple Resp Auscultation: clear to auscultation bilaterally, no rales and no wheezes Cardio Rate: regular rate Rhythm: regular rhythm Heart sounds: no murmurs GI Palpation (GI): Soft to palpation and nontender Auscultation: normal bowel sounds General: Yes no CVA tenderness Back/Spine/Pelvis Back: no CVA tenderness Thoracic/Lumbar Spine: thoracic and lumbar spine normal to inspection Skin Other: (+) healing surgical wound on the left side of the nose Rashes: no rashes Extrem General: Yes no clubbing, cyanosis or edema Left lower extremity: foot ((+) chronic open wound over the left heel) Assessment and Plan Assessment & Plan (1) Annual physical exam: Code(s): Z00.00 - Encounter for general adult medical examination without abnormal findings Plan: Have advised patient to go and get his previously ordered labs done [facility] He has never had a screening colonoscopy done (by personal choice) and initially declined offer to refer him to GI for colonoscopy screening He eventually agreed to this but states that he would like to have his heel issues addressed first before going for his colonoscopy (2) 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 Margarita Castellon or Jaret Dalton) as scheduled (3) Cellulitis of left foot: Code(s): L03.116 - Cellulitis of left lower limb Plan: Possible MRSA - will try to obtain copies of his biopsy and culture reports from [facility] for review Continue Doxycycline 100 mg BID (4) Basal cell carcinoma of nose: Code(s): C44.311 - Basal cell carcinoma of skin of nose Plan: S/P Mohs surgery with [facility] a few months ago Was advised that his surgical margins were all clear Follow up with dermatology as scheduled (5) Benign essential hypertension: Code(s): I10 - Essential (primary) hypertension Plan: Reinforced low sodium diet - goal is systolic BP of at least 130 mm or less Continue Lisinopril 40 mg QD, Amlodipine 10 mg QD and Metoprolol ER 100 mg QD (6) DMII (diabetes mellitus, type 2): Code(s): E11.9 - Type 2 diabetes mellitus without complications Qualifiers: Diabetes mellitus manager employee benefits insulin use: without custodial use Diabetes mellitus complication status: with neurologic complications Diabetes mellitus complication detail: with polyneuropathy Qualified Code(s): E11.42 - Type 2 diabetes mellitus with diabetic polyneuropathy Plan: In-office HgbA1c was at 5.5% when last checked a couple of months ago on 01/02/2023; was at 5.6% back in February 2022 - goal is < 7.0% Reinforced diabetic diet Continue Metformin ER 1000 mg BID (7) Mixed hyperlipidemia: Code(s): E78.2 - Mixed hyperlipidemia Plan: Reinforced low cholesterol diet Will recheck his fasting lipids and labs [facility] for follow up (8) Osteoarthritis: Code(s): M19.90 - Unspecified osteoarthritis, unspecified site Qualifiers: Osteoarthritis location: knee Osteoarthritis type: primary Laterality: bilateral Qualified Code(s): M17.0 - Bilateral primary osteoarthritis of knee Plan: Continue Tramadol 50 mg BID PRN (Rx refilled) and Meloxicam 15 mg QD PRN; was taking Gabapentin 300 mg Q AM and 600 mg Q PM - will increase this now to 600 mg BID to help patient control his chronic pain better Follow up with orthopedics as scheduled (9) Obesity (BMI 30-39.9): Code(s): E66.9 - Obesity, unspecified Plan: Reinforced diet/exercise as tolerated/lose weight (10) Colon cancer screening: Code(s): Z12.11 - Encounter for screening for malignant neoplasm of colon Plan: Patient has never had a screening colonoscopy done (by personal choice) and initially declined offer to refer him to GI for colonoscopy screening but he eventually agreed although states that he would like to have his heel issues addressed first before going for his colonoscopy Have advised patient that GI is currently backed up with their scheduling and it is likely that even if we made out a referral for him today, he will probably not be seen for a few months - referral to GI done Plan Follow up as scheduled in April 2023 Orders: Referrals Gastroenterology Referral Z12.11 - Encounter for screening for malignant neoplasm of colon Medications: Changed From gabapentin 1 capsule in AM and 2 capsules at bedtime orally; 30 days 90 caps 1RF To gabapentin 600 mg (2 x 300 mg) PO BID 30 days 120 caps 1RF Refilled tramadol 50 mg PO BID 30 days PRN 60 tabs 1RF pain M19.91 - Primary osteoarthritis, unspecified site Coding Level of Care Code Est Pt Prev Care >65y(71701) Diagnoses Annual physical exam Z00.00 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; L98.499 Cellulitis of left foot L03.116 Basal cell carcinoma of nose C44.311 Benign essential hypertension I10 Type 2 diabetes mellitus with diabetic polyneuropathy, without long-term current use of insulin E11.42 Diabetes mellitus custodial insulin use: without manager employee benefits use Diabetes mellitus complication status: with neurologic complications Diabetes mellitus complication detail: with polyneuropathy Mixed hyperlipidemia E78.2 Primary osteoarthritis of both knees M17.0 Osteoarthritis location: knee Osteoarthritis type: primary Laterality: bilateral Obesity (BMI 30-39.9) E66.9 Colon cancer screening Z12.11
== END 2023-03-02 15:36 | disposition home or self-care (01) ==
PROVIDERS: Visit Provider Internal Medicine
DX: Z00.00 Encounter for general adult medical examination without abnormal findings (principal); C80.1 Malignant (primary) neoplasm, unspecified; L98.499 Non-pressure chronic ulcer of skin of other sites with unspecified severity; E11.42 Type 2 diabetes mellitus with diabetic polyneuropathy; L03.116 Cellulitis of left lower limb; C44.311 Basal cell carcinoma of skin of nose; I10 Essential (primary) hypertension; E78.2 Mixed hyperlipidemia; M17.0 Bilateral primary osteoarthritis of knee; E66.9 Obesity, unspecified
CPT/HCPCS: 99397

== ENCOUNTER 2023-03-03 10:37 | Outpatient (REF) | payer MEDICARE, SELFPAY ==
[2023-03-03 11:09] LABS: MANUAL DIFF FLAG NO
[2023-03-03 11:10] LABS: Basophils Absolute Auto 0.1 X10*3/uL (0.0-0.2); Basophils Percent Auto 1.2 % (0-2); Eosinophils Absolute Auto 0.6 X10*3/uL (0.0-0.4); Eosinophils Percent Auto 5.1 % (0-4); Hematocrit 44.9 % (42.0-52.0); Hemoglobin 15.5 g/dl (14.0-18.0); Imm Gran Abs Auto 0.07 X10*3/uL (0.00-0.03); Imm Gran Pct Auto 0.6 % (0.0-0.4); Lymphocytes Percent Auto 26.9 % (20-40); Mean Corpuscular HGB Conc 34.5 g/dl (31.0-36.0); Mean Corpuscular Hemoglobin 29.9 pg (27.0-33.0); Mean Corpuscular Volume 86.7 fL (80.0-98.0); Mean Platelet Volume 10.5 fL (9.4-12.4); Monocytes Absolute Auto 0.8 X10*3/uL (0.1-1.2); Monocytes Percent Auto 7.2 % (2-11); Neutrophils Absolute Auto 6.5 x10*3/uL (2.0-8.3); Platelet Count 233 X10*3/uL (160-400); Red Blood Count 5.18 X10*6/uL (4.60-5.80); Red Cell Distribution Width 12.4 % (11.0-16.0)
[2023-03-03 11:26] LABS: Estimated Average Glucose 111 mg/dL; Hemoglobin A1c % 5.5 % (<6.0)
[2023-03-03 11:38] LABS: Alanine Aminotransferase 19 U/L (0-40); Albumin Level 4.4 g/dL (3.5-5.0); Alkaline Phosphatase 61 U/L (39-117); Anion Gap 15 (12-20); Aspartate Amino Transferase 16 U/L (5-37); Bilirubin Total 0.6 mg/dL (0.0-1.0); Blood Urea Nitrogen 32 mg/dL (9-16); Calcium 9.5 mg/dL (8.4-10.2); Carbon Dioxide 23 mmol/L (22-29); Chloride 109 mmol/L (96-108); Cholesterol 197 mg/dL (<200); Estimated Glomerular Filt Rate 51; Glucose Fasting 124 mg/dL (60-99); HDL Cholesterol 30 mg/dL (>40); LDL Cholesterol Calculated 98 mg/dL (<100); Potassium 4.6 mmol/L (3.3-5.1); Sodium 142 mmol/L (135-145); Total Protein 7.7 g/dL (6.5-8.0); Triglycerides 348 mg/dL (<150)
[2023-03-03 11:49] LABS: Appearance Urine Clear; Color Urine Yellow; Glucose Urine UA Negative (Negative); Leukocyte Esterase Urine Negative (Negative); Nitrite Urine Negative (Negative); Specific Gravity - Urine >= 1.030 (1.005-1.025); Urine Blood Negative (Negative); Urine Ketones Negative (Negative); Urine Protein Trace mg/dL (Neg-Trace)
[2023-03-03 11:52] LABS: TSH reflex Free T4 1.73 uIU/mL (0.32-4.0); Vitamin D 25-OH Total 16.7 ng/mL (>30)
[2023-03-03 12:08] LABS: Creatinine Urine 287.64 mg/dL
== END 2023-03-03 10:38 | disposition home or self-care (01) ==
LOC: HO.LAB 10:37
PROVIDERS: PCP Internal Medicine; Visit Provider Internal Medicine
DX: E11.9 Type 2 diabetes mellitus without complications (principal); E78.00 Pure hypercholesterolemia, unspecified; R30.0 Dysuria; I10 Essential (primary) hypertension; E55.9 Vitamin D deficiency, unspecified
CPT/HCPCS: 36415; 80053; 80061; 81003; 82043; 82306; 82570; 83036; 84443; 85025

== ENCOUNTER 2023-04-23 13:25 | Outpatient (AMB) | payer MEDICARE, SELFPAY ==
[2023-04-23 13:32] VITALS: BP 134/76; PULSE 70; O2SAT 96
--- NOTE | 2023-04-23 13:32 | MHC.PC.OV ---
Vital Signs 04/23/23 13:32 Height 5 ft 10 in BP 134/76 Blood Pressure Location Lt brachial Position Sitting Pulse 70 Pulse Source Pulse Oximeter Pulse Oximetry (%) 96 Oxygen Delivery Method Room Air Intake Visit Reasons: DM, HTN, chronic left heel ulcer, ear drainage Purchasing Assistant Required: No Accompanied by: Self / Same As Patient Allergies No Known Allergies Allergy (Verified 04/23/23 14:17) Medication List - Last Reconciled 04/23/23 by Marquez Jones MD amlodipine 10 mg PO DAILY aspirin 81 mg PO DAILY blood sugar diagnostic As directed check the blood sugar once a day blood sugar diagnostic (OneTouch Verio test strips) As directed once a day blood-glucose meter (OneTouch Verio Flex Meter) As directed once a day gabapentin 600 mg (2 x 300 mg) PO BID 30 days ibuprofen 800 mg PO TID PRN [Kneeling Scooter As directed] lancets As directed once a day lisinopril 40 mg PO DAILY 90 days meloxicam 15 mg PO DAILY PRN 90 days metformin 1,000 mg PO DAILY metoprolol succinate ER 100 mg PO DAILY terbinafine HCl 250 mg PO DAILY tramadol 50 mg PO BID PRN 30 days Tobacco use date assessed: 04/23/23 Fall risk assessment: No Falls in past year Last assessed Fall Risk: 04/23/23 Dental Screening Dental Screen Date: 04/23/23 Did you have a dental visit in the last 12 months?: No Did you have a dental problem in the last 6 months where you did not have access to dental care?: No Was dental information given to patient?: No HPI DM, HTN, chronic left heel ulcer, ear drainage HPI Details Patient comes in today for his follow up visit States that he is now scheduled for left foot surgery next week on 05/02/2023 Will be undergoing excision of the malignant lesion on his left foot (heel area) with Dr. Meg García and VAC dressing change or wound VAC by Dr. Emiliano Rosales at [facility] in [place] States that he has had some discharge/drainage from his left ear as well as left ear pain for the past 1 to 2 weeks He denies any fever or sore throat; denies any headaches or dizziness Denies any chest pains, no SOB No nausea/vomiting, no abdominal pain No change in bowel habits noted Had his follow up labs done the day after his last visit in February 2023 - to discuss his results [facility] Medical History Diabetes Mixed hyperlipidemia Dyslipidemia Obesity (BMI 30-39.9) Insomnia Osteoarthritis Benign essential hypertension Surgical History History of foot surgery (05/03/22) History of foot surgery History of inguinal hernia repair Family History Father CAD (coronary artery disease) Acute CVA (cerebrovascular accident) Hypertension Diabetes Stroke Mother Hypertension Acute CVA (cerebrovascular accident) Intestinal cancer Sister Hypertension Von Willebrand disease Brother Hypertension Social History Housing: House Are you a primary care attendant to a significant other at home: No Do you presently have visiting nurse or other home services: No Alcohol intake: current Alcohol intake frequency: holidays/special occasions only Alcohol type: beer Comment: tolerable Patient Tobacco Use Status: Former Tobacco user Tobacco use type: Cigarette e-Cigarette/Vaping Use: Never Used Second Hand Smoke Exposure: Yes service: Yes ([employer]) Current occupational status: employed Current occupation: Unloading department Cognitive needs: No Hearing needs: No Vision needs: No Questionnaire PHQ-9 Over the last 2 weeks, how often have you been bothered by any of the following problems? 1. Little interest or pleasure in doing things: not at all 2. Feeling down, depressed, or hopeless: not at all 3. Trouble falling or staying asleep, or sleeping too much: not at all 4. Feeling tired or having little energy: not at all 5. Poor appetite or overeating: not at all 6. Feeling bad about yourself - or that you are a failure or have let yourself or your family down: not at all 7. Trouble concentrating on things, such as reading the newspaper or watching television: not at all 8. Moving or speaking so slowly that other people could have noticed. Or the opposite - being so fidgety or restless that you have been moving around a lot more than usual: not at all 9. Thoughts that you would be better off or of hurting yourself in some way: not at all Total score: 0 Depression Screening Interpretation: Negative Depression Screening Done: Yes [id number] - PHQ-9 Billing: Yes Source: Developed by Drs. Marco A Calderon, Peg Champion, Abundio Mo and colleagues, with an educational jed from [employer]. Thrive Questionnaire Date Thrive assessed: 04/23/23 I am a: Patient What is your living situation today?: I have a steady place to live Within the past 12 months, did the food you bought not last and you didn't have the money to get more?: Never true Within the past 12 months, did you worry whether your food would run out before you got money to buy more?: Never true Do you have trouble paying for medicines?: No Do you have trouble getting transportation to medical appointments?: No Do you have trouble paying your heating and electricity bill?: No Do you have trouble taking care of your child, family member or friend?: No Do you have trouble with day-to-day activities such as bathing, preparing meals, shopping, managing finances, etc.?: No Are you currently unemployed and looking for a job?: No Are you interested in more education?: No Please select the resources that you would like help with: None Currently or been in a relationship where the following occur: no concerns reported THRIVE Score: 0 AUDIT C Alcohol Use Questionnaire (AUDIT-C) 1. How often do you have a drink containing alcohol?: Monthly or less 2. How many drinks containing alcohol do you have on a typical day when you are drinking?: 1 or 2 3. How often do you have six or more drinks on one occasion?: Never Total Score: 1 Score Reviewed/Action Taken: Yes CHANO-7 AMB Questionnaire CHANO-7 Date CHANO - 7 assessed: 04/23/23 Feeling nervous, anxious, or on edge: 0 = Not at all Not being able to stop or control worryin = Not at all Worrying too much about different things: 0 = Not at all Trouble relaxin = Not at all Being so restless that it is hard to sit still: 0 = Not at all Becoming easily annoyed or irritable: 0 = Not at all Feeling afraid as if something awful might happen: 0 = Not at all Total CHANO-7 score (0-4 normal; 5-9 mild; 10-14 moderate; 15-21 severe): 0 Source: Developed by Drs. Marco A Calderon, Peg Champion, Abundio Mo and colleagues, with an educational jed from [employer]. Review of Systems Const Denies chills, Denies fatigue, Denies fever(s) and Denies headache(s) ENT Denies dysphagia, Denies dizziness, Reports ear discharge (left ear), Reports otalgia (left ear), Denies headache(s), Denies neck pain, Denies odynophagia and Denies sore throat Card Denies chest pain, Denies rapid heart rate, Denies irregular heart rhythm, Denies palpitations and Denies dyspnea Resp Denies chest congestion, Denies cough, Denies dyspnea and Denies wheezing GI Denies abdominal pain, Denies constipation, Denies dysphagia, Denies heartburn, Denies diarrhea, Denies nausea, Denies odynophagia and Denies vomiting Denies difficulty urinating, Denies nocturia and Denies urinary frequency Musc Denies back pain, Reports arthralgias (over both ankles - chronic), Denies joint swelling, Denies neck pain and Denies radiating pain into limb Skin/Breast Details: (+) chronic open wound on left heel Denies rash Neuro Denies dizziness, Denies headache(s) and Denies paresthesias Endo Denies fatigue and Denies palpitations Aller/Immun Denies wheezing Physical exam (Primary Care) Vital Signs: Last Vital Signs Pulse 70 04/23/23 13:32 BP 134/76 04/23/23 13:32 Pulse Ox 96 04/23/23 13:32 Oxygen Delivery Method Room Air 04/23/23 13:32 Tobacco/Smoking Status: Tobacco use Status Tobacco use date assessed 04/23/23 04/23/23 13:35 Patient Tobacco Use Status Former Tobacco user 04/23/23 13:35 Tobacco use type Cigarette 04/23/23 13:35 e-Cigarette/Vaping Use Never Used 04/23/23 13:35 PHQ-9: PHQ-9 Score PHQ-9: Total score 0 04/23/23 17:03 Depression Screening Interpretation: Negative Thrive Assessment: Date of Thrive Assessment Date Thrive assessed 04/23/23 04/23/23 13:35 Currently or been in a relationship where the following occur: no concerns reported Const General: no acute distress and alert HENMT Ears: TM normal on the right, EAC's normal (on the right side) and Abnormal EAC present EAC tenderness on the left and otic discharge clear on the left Throat: Yes posterior oropharynx normal and Yes tonsils normal (no TP congestion) Neck Neck: Yes no lymphadenopathy and Yes supple Thyroid: Thyroid normal Resp Auscultation: clear to auscultation bilaterally, no rales and no wheezes Cardio Rate: regular rate Rhythm: regular rhythm Heart sounds: no murmurs GI Palpation (GI): Soft to palpation and nontender Auscultation: normal bowel sounds General: Yes no CVA tenderness Back/Spine/Pelvis Back: no CVA tenderness Thoracic/Lumbar Spine: No lumbar spinal tenderness Skin Rashes: no rashes Extrem General: Yes no clubbing, cyanosis or edema Left lower extremity: foot ((+) chronic open wound over the left heel) Results Reviewed Results Reviewed: Laboratory Tests 03/03/23 03/03/23 03/03/23 11:01 11:01 11:05 WBC 11.0 H Hgb 15.5 Hct 44.9 Plt Count 233 Sodium Potassium Creatinine 1.38 Estimated GFR 51 Fasting Glucose 124 H Hemoglobin A1c % 5.5 Calcium 9.5 AST 16 ALT 19 Triglycerides 348 H Cholesterol 197 LDL Cholesterol, Calc 98 HDL Cholesterol 30 L 25-OH Vitamin D Total 16.7 L TSH 1.73 Urine pH 5.0 Ur Specific [place] >= 1.030 H Urine Protein Trace Urine Glucose (UA) Negative Urine Ketones Negative Urine Nitrite Negative Ur Leukocyte Esterase Negative Microalb/Creat Ratio 26.0 03/03/23 11:05 WBC Hgb Hct Plt Count Sodium 142 Potassium 4.6 Creatinine Estimated GFR Fasting Glucose Hemoglobin A1c % Calcium AST ALT Triglycerides Cholesterol LDL Cholesterol, Calc HDL Cholesterol 25-OH Vitamin D Total TSH Urine pH Ur Specific [place] Urine Protein Urine Glucose (UA) Urine Ketones Urine Nitrite Ur Leukocyte Esterase Microalb/Creat Ratio Assessment and Plan Assessment & Plan (1) 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 Margarita Castellon or Jaret Dalton) as scheduled (2) Basal cell carcinoma of nose: Code(s): C44.311 - Basal cell carcinoma of skin of nose Plan: S/P Mohs surgery with [facility] a few months ago Was advised/reassured that his surgical margins were all clear Follow up with dermatology as scheduled (3) Benign essential hypertension: Code(s): I10 - Essential (primary) hypertension Plan: Reinforced low sodium diet - goal is systolic BP of at least 130 mm or less Continue Lisinopril 40 mg QD, Amlodipine 10 mg QD and Metoprolol ER 100 mg QD (4) DMII (diabetes mellitus, type 2): Code(s): E11.9 - Type 2 diabetes mellitus without complications Qualifiers: Diabetes mellitus complication detail: with polyneuropathy Diabetes mellitus complication status: with neurologic complications Diabetes mellitus shelter insulin use: without shelter use Qualified Code(s): E11.42 - Type 2 diabetes mellitus with diabetic polyneuropathy Plan: In-office HgbA1c was normal at 5.5% when last checked on his recent labs in February 2023 - goal is < 7.0% Reinforced diabetic diet Continue Metformin ER 1000 mg BID (5) Mixed hyperlipidemia: Code(s): E78.2 - Mixed hyperlipidemia Plan: Results of his labs done back in February 2023 reviewed and discussed with patient Reinforced low cholesterol diet Will recheck his fasting lipids and labs in 4 months for follow up (6) Otitis media of left ear: Code(s): H66.92 - Otitis media, unspecified, left ear Qualifiers: Otitis media type: unspecified Qualified Code(s): H66.92 - Otitis media, unspecified, left ear Plan: Will start patient on Augmentin 875 mg BID x 10 days (7) Osteoarthritis: Code(s): M19.90 - Unspecified osteoarthritis, unspecified site Qualifiers: Laterality: bilateral Osteoarthritis location: knee Osteoarthritis type: primary Qualified Code(s): M17.0 - Bilateral primary osteoarthritis of knee Plan: Continue Tramadol 50 mg BID PRN, Meloxicam 15 mg QD PRN with food and Gabapentin 600 mg BID Follow up with orthopedics as scheduled (8) Obesity (BMI 30-39.9): Code(s): E66.9 - Obesity, unspecified Plan: Reinforced diet/exercise as tolerated/lose weight Plan Follow up in 4 months Orders: Orders Comprehensive [place]. Panel Fast 4 Months E78.00 - Pure hypercholesterolemia, unspecified TSH reflex Free T4 4 Months E78.00 - Pure hypercholesterolemia, unspecified UA CC w/rflx Micro + Cult 4 Months R30.0 - Dysuria Microalbumin, Random (w Creat) 4 Months E11.9 - Type 2 diabetes mellitus without complications Complete Blood Count Auto Diff 4 Months D64.9 - Anemia, unspecified Lipid Panel 4 Months E78.00 - Pure hypercholesterolemia, unspecified Vitamin D 25-OH Total 4 Months E55.9 - Vitamin D deficiency, unspecified Hemoglobin A1c 4 Months E11.9 - Type 2 diabetes mellitus without complications Medications: New amoxicillin-pot clavulanate 875-125 mg 1 tab PO BID 20 tabs 0RF left otitis media 10 days Coding Level of Care Code Est Pt Level 4 (84207) Diagnoses 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; L98.499 Basal cell carcinoma of nose C44.311 Benign essential hypertension I10 Type 2 diabetes mellitus with diabetic polyneuropathy, without long-term current use of insulin E11.42 Diabetes mellitus complication detail: with polyneuropathy Diabetes mellitus complication status: with neurologic complications Diabetes mellitus shelter insulin use: without dedicated intermodal truck driver use Mixed hyperlipidemia E78.2 Left otitis media, unspecified otitis media type H66.92 Otitis media type: unspecified Primary osteoarthritis of both knees M17.0 Laterality: bilateral Osteoarthritis location: knee Osteoarthritis type: primary Obesity (BMI 30-39.9) E66.9
== END 2023-04-23 14:45 | disposition home or self-care (01) ==
LOC: HO.HMGH 13:25
PROVIDERS: PCP Internal Medicine; Visit Provider Internal Medicine
DX: E11.42 Type 2 diabetes mellitus with diabetic polyneuropathy (principal); C80.1 Malignant (primary) neoplasm, unspecified; L98.499 Non-pressure chronic ulcer of skin of other sites with unspecified severity; I10 Essential (primary) hypertension; E66.9 Obesity, unspecified; C44.311 Basal cell carcinoma of skin of nose; E78.2 Mixed hyperlipidemia; H66.92 Otitis media, unspecified, left ear; M17.0 Bilateral primary osteoarthritis of knee
CPT/HCPCS: 99214

== ENCOUNTER 2023-07-09 17:28 | Outpatient (AMB) | payer MEDICARE, SELFPAY ==
[2023-07-09 17:38] VITALS: BP 120/70; PULSE 72; O2SAT 98; BMI 33.8
--- NOTE | 2023-07-09 17:38 | MHC.PC.OV ---
Vital Signs 07/09/23 17:38 Height 5 ft 10 in Weight 235 lb 7.259 oz BMI 33.8 BP 120/70 Blood Pressure Location Lt brachial Position Sitting Pulse 72 Pulse Source Pulse Oximeter Pulse Oximetry (%) 98 Oxygen Delivery Method Room Air Intake Visit Reasons: [facility] 06/15/23 plastic surgery Rectifying Attendant Required: No Accompanied by: Daughter Allergies No Known Allergies Allergy (Verified 01/04/24 14:33) Medication List - Last Reconciled 07/09/23 by Marquez Jones MD amlodipine 10 mg PO DAILY blood sugar diagnostic As directed check the blood sugar once a day blood sugar diagnostic (OneTouch Verio test strips) As directed once a day blood-glucose meter (OneTouch Verio Flex Meter) As directed once a day gabapentin 600 mg (2 x 300 mg) PO BID 30 days ibuprofen 800 mg PO TID PRN [Kneeling Scooter As directed] lancets As directed once a day lisinopril 40 mg PO DAILY 90 days metformin 1,000 mg PO DAILY metoprolol succinate ER 100 mg PO DAILY Tobacco use date assessed: 04/23/23 Fall risk assessment: No Falls in past year Last assessed Fall Risk: 07/09/23 Dental Screening Dental Screen Date: 04/23/23 HPI [facility] 06/15/23 plastic surgery HPI Details Patient comes in today for his [facility] follow up visit Patient underwent skin grafting on his left heel at [facility] in [place] last month States a skin graft site on his left heel has healed up well and he currently has no other acute issues at present He denies any headaches or dizziness Denies any chest pains, no SOB No nausea/vomiting, no abdominal pain No change in bowel habits noted [facility] Medical History (Updated 01/06/24 @ 01:10 by Marquez Jones MD) Diabetes mellitus Diabetes Mixed hyperlipidemia Dyslipidemia Obesity (BMI 30-39.9) Insomnia Osteoarthritis Benign essential hypertension Surgical History (Updated 01/06/24 @ 00:56 by Marquez Jones MD) History of skin graft Hx of foot surgery History of foot surgery (05/03/22) History of foot surgery History of inguinal hernia repair Family History Father CAD (coronary artery disease) Acute CVA (cerebrovascular accident) Hypertension Diabetes Stroke Mother Hypertension Acute CVA (cerebrovascular accident) Intestinal cancer Sister Hypertension Von Willebrand disease Brother Hypertension Social History Housing: House Are you a primary healthcare applications analyst to a significant other at home: No Do you presently have visiting nurse or other home services: No Alcohol intake: current Alcohol intake frequency: holidays/special occasions only Alcohol type: beer Comment: tolerable Patient Tobacco Use Status: Former Tobacco user Tobacco use type: Cigarette e-Cigarette/Vaping Use: Never Used Second Hand Smoke Exposure: Yes service: Yes ([employer]) Current occupational status: employed Current occupation: Unloading department Cognitive needs: No Hearing needs: No Vision needs: No Questionnaire Thrive Questionnaire Date Thrive assessed: 04/23/23 CHANO-7 AMB Questionnaire CHANO-7 Date CHANO - 7 assessed: 04/23/23 Source: Developed by Drs. Marco A Calderon, Peg Champion, Abundio Mo and colleagues, with an educational jed from [employer]. Review of Systems Const Denies chills, Denies fatigue, Denies fever(s) and Denies headache(s) ENT Denies dysphagia, Denies dizziness, Denies otalgia, Denies headache(s), Denies neck pain, Denies odynophagia and Denies sore throat Card Denies chest pain, Denies rapid heart rate, Denies irregular heart rhythm, Denies palpitations and Denies dyspnea Resp Denies chest congestion, Denies cough and Denies dyspnea GI Denies abdominal pain, Denies constipation, Denies dysphagia, Denies heartburn, Denies diarrhea, Denies nausea, Denies odynophagia and Denies vomiting Denies difficulty urinating, Denies nocturia and Denies urinary frequency Musc Denies back pain, Reports arthralgias (over both ankles - chronic), Denies joint swelling, Denies neck pain and Denies radiating pain into limb Skin/Breast Denies rash Neuro Denies dizziness, Denies headache(s) and Denies paresthesias Endo Denies fatigue and Denies palpitations Physical exam (Primary Care) Vital Signs: Last Vital Signs Pulse 72 07/09/23 17:38 BP 120/70 07/09/23 17:38 Pulse Ox 98 07/09/23 17:38 Oxygen Delivery Method Room Air 07/09/23 17:38 BMI result Body Mass Index 33.8 Tobacco/Smoking Status: Tobacco use Status Tobacco use date assessed 04/23/23 07/09/23 17:41 Patient Tobacco Use Status Former Tobacco user 07/09/23 17:41 Tobacco use type Cigarette 07/09/23 17:41 e-Cigarette/Vaping Use Never Used 07/09/23 17:41 Thrive Assessment: Date of Thrive Assessment Date Thrive assessed 04/23/23 07/09/23 17:41 Const General: no acute distress and alert HENMT Ears: TM's normal bilaterally and EAC's normal Throat: Yes posterior oropharynx normal and Yes tonsils normal (no TP congestion) Neck Neck: Yes no lymphadenopathy and Yes supple Thyroid: Thyroid normal Resp Auscultation: clear to auscultation bilaterally, no rales and no wheezes Cardio Rate: regular rate Rhythm: regular rhythm Heart sounds: no murmurs GI Palpation (GI): Soft to palpation and nontender Auscultation: normal bowel sounds General: Yes no CVA tenderness Back/Spine/Pelvis Back: no CVA tenderness Thoracic/Lumbar Spine: No lumbar spinal tenderness Skin Rashes: no rashes Extrem General: Yes no clubbing, cyanosis or edema Results AMB Hemoglobin A1c AMB Hemoglobin A1c 5.4 % Last Edit by MONICA Recinos on 07/09/23 17:59 Results Reviewed Results Reviewed: Laboratory Last Values Hgb A1c (Clinic) 5.4 % (4.0-6.0) 07/09/23 17:48 Coding Level of Care Code Est Pt Level 4 (76278) Diagnoses 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
== END 2023-07-09 18:22 | disposition home or self-care (01) ==
PROVIDERS: PCP Internal Medicine; Visit Provider Internal Medicine
DX: C80.1 Malignant (primary) neoplasm, unspecified (principal); L98.499 Non-pressure chronic ulcer of skin of other sites with unspecified severity; E11.9 Type 2 diabetes mellitus without complications; I10 Essential (primary) hypertension; E78.2 Mixed hyperlipidemia; C44.311 Basal cell carcinoma of skin of nose; M17.0 Bilateral primary osteoarthritis of knee; E66.9 Obesity, unspecified
CPT/HCPCS: 83036; 99214

== ENCOUNTER 2023-08-24 19:07 | Emergency (ER) | payer OTHER, SELFPAY ==
--- NOTE | 2023-08-24 | ECG_ITS ---
Test Reason : HEAVYNESS IN CHEST Blood Pressure : / mmHG Vent. Rate : 092 BPM Atrial Rate : 092 BPM P-R Int : 170 ms QRS Dur : 086 ms QT Int : 334 ms P-R-T Axes : 052 058 047 degrees QTc Int : 413 ms Normal sinus rhythm Normal ECG When compared with ECG of 17-AUG-2021 09:24, Premature supraventricular complexes are no longer Present Referred By: Generic ED Physician Electronically Signed By:HEIDY GLOVER MD
--- NOTE | ~2023-08-24 | XR_ITS ---
EXAMINATION: XR CHEST CLINICAL INFORMATION: Chest pain. COMPARISON: Chest radiograph 08/16/2021. TECHNIQUE: 2 views of the chest were obtained. FINDINGS: Normal appearance of the cardiomediastinal silhouette. Unchanged mild interstitial prominence. No new focal airspace densities. No pleural effusion or pneumothorax. Thoracic spondylosis. No acute osseous findings. XR/XR chest 2V IMPRESSION: No acute cardiopulmonary findings.
--- NOTE | ~2023-08-24 | US_ITS ---
EXAMINATION: US VENOUS ULTRASOUND WITH DOPPLER LOWER EXTREMITY, LEFT CLINICAL INFORMATION: Pain, swelling COMPARISON: None available. TECHNIQUE: Ultrasound of the deep veins is performed from the hip to the calf with compression sonography and color and pulse Doppler assessment. Spectral analysis with color-flow imaging is performed. FINDINGS: There is normal venous compression and respiratory variation and augmented flow. The visualized common femoral vein, superficial femoral vein, profunda femoral vein, popliteal vein, and the trifurcation region shows no evidence of deep venous thrombosis. There is no significant popliteal fossa cyst. If the patient's symptoms persist, followup ultrasound in 5 days 7 days might be of value to exclude proximal propagation from a non-visualized calf vein. US/US venous duplex LE LT IMPRESSION: No DVT demonstrated in the left lower extremity.
[2023-08-24 19:26] VITALS: BP 164/93; PULSE 97; RESP 18; TEMP 36.6; O2SAT 98; BMI 34.7
--- NOTE | 2023-08-24 19:29 | ED.CHESTPAIN ---
HPI - Chest Pain General Chief Complaint: General Medical Stated Complaint: Trouble breathing, L arm pain, heavy chest? Time Seen by Provider: 08/25/23 00:44 Source: patient and old records reviewed Mode of arrival: ambulatory Limitations: no limitations History of Present Illness ED Provider: VALERIA EAST narrative: 68 yo male with PMH of HTN, DM, HLD here with c/o chest pain after using vaccuum on dog yesterday he felt dyspnea as well constant symptoms yesterday and all day today now since being in waiting room he is feeling better. He took no medications to make them go away. He recently started exercising again and has not had chest pain. [facility] he has no known CAD or had prior cardiac workup MD complaint: chest pain Onset (ago): day(s) (yesterday ) Timing of current episode: now resolved Prior episodes: No Onset: during rest Pain location: left chest Pain radiation: left arm Severity: moderate Quality: aching Relieving factors: nothing Exacerbating factors: nothing Associated symptoms: dyspnea Treatment prior to arrival: none Related Data Previous Rx's ?Medication ?Instructions ?Recorded Kneeling Scooter #1 ea 06/17/20 blood sugar diagnostic #100 ea 11/01/21 blood-glucose meter (OneTouch #1 ea 11/09/21 Verio Flex Meter) blood sugar diagnostic (OneTouch #100 ea 07/21/22 Verio test strips) ibuprofen 800 mg tablet 800 mg PO TID PRN for joint pain 01/25/23 #270 tabs lancets 33 gauge #100 ea 01/28/23 metformin 1,000 mg tablet 1,000 mg PO DAILY #90 tabs 02/05/23 metoprolol succinate 100 mg 100 mg PO DAILY #90 tabs 02/05/23 tablet,extended release 24 hr amlodipine 10 mg tablet 10 mg PO DAILY #90 tabs 07/01/23 lisinopril 40 mg tablet 40 mg PO DAILY 90 days #90 tabs 07/01/23 gabapentin 300 mg capsule 600 mg (2 x 300 mg) PO BID 30 days 08/10/23 #120 caps Allergies Allergy/AdvReac Type Severity Reaction Status Date / Time No Known Allergies Allergy Verified 08/24/23 19:31 Review of Systems Review of Systems: Constitutional : No Weight loss, No Fever, No Chills ENT/Mouth : No sore throat, No Rhinorrhea Eyes: No Eye Pain, No Swelling Cardiovascular : pos Chest Pain, pos SOB, no Dyspnea on Exertion, No Orthopnea, No Edema, No Palpitations Respiratory : No Cough, No Sputum Gastrointestinal : no Nausea, No Vomiting, No Diarrhea, No abdominal Pain, No Hematochezia, No Melena Genitourinary : No Dysuria, No Urinary Frequency Musculoskeletal : No joint pain, No Myalgias, No Joint Swelling Skin : No Skin Lesions, No rash Neuro : No Weakness, No Numbness, No Dizziness, No Headache Psych : No Anxiety/Panic, No Depression Heme/Lymph: No Bruising, No Lymphadenopathy Endocrine : No Polyuria, No Polydipsia All other systems reviewed and are negative [facility] Past Medical History Attestation statement: The following information was validated with the patient. Source: old records reviewed Medical History Diabetes Mixed hyperlipidemia Dyslipidemia Obesity (BMI 30-39.9) Insomnia Osteoarthritis Benign essential hypertension Surgical History History of foot surgery (05/03/22) History of foot surgery History of inguinal hernia repair Family History Family History Father CAD (coronary artery disease) Acute CVA (cerebrovascular accident) Hypertension Diabetes Stroke Mother Hypertension Acute CVA (cerebrovascular accident) Intestinal cancer Sister Hypertension Von Willebrand disease Brother Hypertension Social History Social History Housing: House Are you a primary career development specialist to a significant other at home: No Do you presently have visiting nurse or other home services: No Alcohol intake: current Alcohol intake frequency: holidays/special occasions only Alcohol type: beer Comment: tolerable Patient Tobacco Use Status: Former Tobacco user Tobacco use type: Cigarette Smoked in Last 30 Days: No e-Cigarette/Vaping Use: Never Used Second Hand Smoke Exposure: Yes Advance Directives: No Advance Directives Information Provided: No Do you have a plan to hurt others: No Plan service: Yes ([employer]) Current occupational status: employed Current occupation: Unloading department Cognitive needs: No Hearing needs: No Vision needs: No Physical Exam Vital Signs: Vital Signs: Last Vital Signs Temp 98.0 F 08/25/23 02:00 Pulse 95 08/25/23 02:00 Resp 16 08/25/23 02:00 BP 128/62 08/25/23 02:00 Pulse Ox 95 08/25/23 02:00 O2 Del Method Room Air 08/25/23 02:00 BMI result Body Mass Index 34.7 Appearance: Alert. Oriented X3. No acute distress. Eyes: Pupils equal, round and reactive to light. ENT: Pharynx normal. Neck: Normal inspection. Neck supple. CVS: Normal heart rate and rhythm. Pulses normal. Respiratory: No respiratory distress. Breath sounds normal. Abdomen: Soft and nontender. Skin: Skin warm and dry. Normal skin color. Normal skin turgor. Extremities: mild nonpitting L leg edema no rash Neuro: Oriented X 3. No motor deficit. No sensory deficit. Course Course Course Narrative: This is an RME performed by Dane Mendoza, [employer]ATING [employer]: Additional HPI, ROS, PE not included below will be deferred to primary provider. Patient is a 68-year-old male past medical history of hypertension, diabetes, presenting to the ED for evaluation of chest pain. Onset of symptoms yesterday while vaccuming his dog, did not feel as though he was particularly exerting himself, began experiencing diffuse anterior chest pain described as someone standing on his chest, pain radiating to the left arm. Left arm pain is described as only from the elbow down to the fingers, he does admit to using the left arm for vacuuming. Denies pain to the shoulder or upper arm. Has associated shortness of breath and headache. Symptoms initially lasted 1 hour before self-resolving. Occurred again 3-4 hours later lasting approximately 1 hour. Onset of symptoms again today a few hours prior to arrival and have been constant since. Plan: Labs, EKG, CXR, viral panel Medical Decision Making Medical Decision Making MDM Narrative: 68 yo male with PMH of HTN, DM, HLD here with c/o atypical chest pain when vaccumming his husky with dyspnea he has not had exertional chest pain recently when starting to exercise he does have risk factors so I am going to obtain EKG, two troponins. He has left leg larger size but it is a prior site of soft tissue cancer surgery will obtain DVT study though low prob - if negative we discussed oral 81mg aspirin and PCP outpatient stress test he agrees to this and no strenuous activity Differential Diagnosis Differential Diagnoses: The differential diagnosis associated with the presentation includes chest pain, atypical chest pain Admission/Observation Consideration of admission/observation: Escalation of care including admission/observation considered EKG nonischemic, flat troponin, no pain now stable for outpatient stress test Lab Data MDM Lab Attestation statement: I reviewed the patient's lab results. 08/24/23 20:25 08/24/23 20:26 Labs: Lab Results 08/24/23 08/24/23 08/24/23 Range/Units 20:22 20:25 20:26 WBC 13.3 H (4.8-10.8) X10*3/uL RBC 5.17 (4.60-5.80) X10*6/uL Hgb 15.2 (14.0-18.0) g/dl Hct 45.1 (42.0-52.0) % MCV 87.2 (80.0-98.0) fL MCH 29.4 (27.0-33.0) pg MCHC 33.7 (31.0-36.0) g/dl RDW 13.0 (11.0-16.0) % Plt Count 252 (160-400) X10*3/uL MPV 10.4 (9.4-12.4) fL Immature Gran % (Auto) 0.5 H (0.0-0.4) % Neut % (Auto) 74.2 H (45-73) % Lymph % (Auto) 15.9 L (20-40) % Creek % (Auto) 7.4 (2-11) % Eos % (Auto) 1.5 (0-4) % Baso % (Auto) 0.5 (0-2) % Lymph # (Auto) 2.1 (1.2-4.9) X10*3/uL Creek # (Auto) 1.0 (0.1-1.2) X10*3/uL Eos # (Auto) 0.2 (0.0-0.4) X10*3/uL Baso # (Auto) 0.1 (0.0-0.2) X10*3/uL Abs Immat Gran (auto) 0.07 H (0.00-0.03) X10*3/uL Absolute Neuts (auto) 9.9 H (2.0-8.3) x10*3/uL Absolute Nucleated RBC 0.000 (0.0-0.012) X10*3/uL Nucleated RBC % (auto) 0.0 (0.0-0.2) /100WBC PT 13.1 (11.1-13.3) SEC INR 1.1 (0.9-1.1) Sodium 142 (135-145) mmol/L Potassium 4.6 (3.3-5.1) mmol/L Chloride 109 H (96-108) mmol/L Carbon Dioxide 21 L (22-29) mmol/L Anion Gap 17 (12-20) BUN 25 H (9-16) mg/dL Creatinine 1.14 (0.5-1.4) mg/dL Estim Creat Clear Calc 74.6 Estimated GFR > 60 Random Glucose 112 (60-115) mg/dL Calcium 9.5 (8.4-10.2) mg/dL Magnesium 2.0 (1.6-2.6) mg/dL Total Bilirubin 0.4 (0.0-1.0) mg/dL AST 15 (5-37) U/L ALT 19 (0-40) U/L Alkaline Phosphatase 68 (39-117) U/L Troponin I High Sens 2.7 (<3.5-35.0) ng/L B-Natriuretic Peptide 30 (<100) pg/mL Total Protein 7.9 (6.5-8.0) g/dL Albumin 4.3 (3.5-5.0) g/dL Influenza Type A (PCR) NEGATIVE (Negative) Influenza Type B (PCR) NEGATIVE (Negative) RSV RNA Qual (PCR) NEGATIVE (Negative) SARS-CoV-2 RNA (RT-PCR) NEGATIVE (Negative) 08/24/23 Range/Units 23:29 WBC (4.8-10.8) X10*3/uL RBC (4.60-5.80) X10*6/uL Hgb (14.0-18.0) g/dl Hct (42.0-52.0) % MCV (80.0-98.0) fL MCH (27.0-33.0) pg MCHC (31.0-36.0) g/dl RDW (11.0-16.0) % Plt Count (160-400) X10*3/uL MPV (9.4-12.4) fL Immature Gran % (Auto) (0.0-0.4) % Neut % (Auto) (45-73) % Lymph % (Auto) (20-40) % Creek % (Auto) (2-11) % Eos % (Auto) (0-4) % Baso % (Auto) (0-2) % Lymph # (Auto) (1.2-4.9) X10*3/uL Creek # (Auto) (0.1-1.2) X10*3/uL Eos # (Auto) (0.0-0.4) X10*3/uL Baso # (Auto) (0.0-0.2) X10*3/uL Abs Immat Gran (auto) (0.00-0.03) X10*3/uL Absolute Neuts (auto) (2.0-8.3) x10*3/uL Absolute Nucleated RBC (0.0-0.012) X10*3/uL Nucleated RBC % (auto) (0.0-0.2) /100WBC PT (11.1-13.3) SEC INR (0.9-1.1) Sodium (135-145) mmol/L Potassium (3.3-5.1) mmol/L Chloride (96-108) mmol/L Carbon Dioxide (22-29) mmol/L Anion Gap (12-20) BUN (9-16) mg/dL Creatinine (0.5-1.4) mg/dL Estim Creat Clear Calc Estimated GFR Random Glucose (60-115) mg/dL Calcium (8.4-10.2) mg/dL Magnesium (1.6-2.6) mg/dL Total Bilirubin (0.0-1.0) mg/dL AST (5-37) U/L ALT (0-40) U/L Alkaline Phosphatase (39-117) U/L Troponin I High Sens 3.8 (<3.5-35.0) ng/L B-Natriuretic Peptide (<100) pg/mL Total Protein (6.5-8.0) g/dL Albumin (3.5-5.0) g/dL Influenza Type A (PCR) (Negative) Influenza Type B (PCR) (Negative) RSV RNA Qual (PCR) (Negative) SARS-CoV-2 RNA (RT-PCR) (Negative) Independent Interpretation I performed an independent interpretation of an: EKG, Plain X-Ray (no acute findings) and Ultrasound (no DVT) Interpretation: Rate: 92 Rhythm: NSR [place]: normal Normal P waves. Normal TANNER. Normal QRS complex. ST T wave : normal no GERALD qTC: 413 prior studies: no acute findings The study has been interpreted contemporaneously by me. . Radiology Impression Discussion of test interpretation with radiology: I have reviewed the radiologist's reading. External Record Review External record reviewed: Inpatient record Discharge Plan Discharge Clinical Impression: Chest pain Qualifiers: Chest pain type: precordial pain Qualified Code(s): R07.2 - Precordial pain Patient Disposition: Home, Self-Care Instructions: Chest Pain (ED) Additional Instructions: return for worsening symptoms - increased pain, fainting, difficulty breathing or any other concerns. take 81mg aspirin daily call PCP for outpatient cardiac stress test as soon as possible no strenuous activity no blood clot seen on ultrasound in leg Prescriptions: No Action (DME) blood sugar diagnostic Strip See Rx Instructions .ROUTE .MEDSUPPLY Qty: 100 3RF Rx Instructions: As directed check the blood sugar once a day (DME) OneTouch Verio test strips Strip See Rx Instructions .Route Qty: 100 3RF Rx Instructions: As directed once a day ibuprofen 800 mg tablet 800 mg PO TID PRN (Reason: for joint pain) Qty: 270 1RF (DME) lancets 33 gauge misc See Rx Instructions .Route Qty: 100 3RF Rx Instructions: As directed once a day metformin 1,000 mg tablet 1,000 mg PO DAILY Qty: 90 3RF metoprolol succinate 100 mg tablet extended release 24 hr 100 mg PO DAILY Qty: 90 1RF lisinopril 40 mg tablet 40 mg PO DAILY 90 Days Qty: 90 3RF amlodipine 10 mg tablet 10 mg PO DAILY Qty: 90 3RF gabapentin 300 mg capsule 600 mg PO BID 30 Days Qty: 120 5RF (DME) blood-glucose meter [OneTouch Verio Flex meter] Misc See Rx Instructions .Route Qty: 1 3RF Rx Instructions: As directed once a day (DME) Kneeling Scooter See Rx Instructions .ROUTE .[facility] Qty: 1 0RF Rx Instructions: As directed Print Language: Martiniquais
--- NOTE | 2023-08-24 19:49 | MHC.EDTECH ---
Patient ekg taken and was read by provider .
[2023-08-24 20:32] LABS: MANUAL DIFF FLAG NO
[2023-08-24 20:35] LABS: Basophils Absolute Auto 0.1 X10*3/uL (0.0-0.2); Basophils Percent Auto 0.5 % (0-2); Eosinophils Absolute Auto 0.2 X10*3/uL (0.0-0.4); Eosinophils Percent Auto 1.5 % (0-4); Hematocrit 45.1 % (42.0-52.0); Hemoglobin 15.2 g/dl (14.0-18.0); Imm Gran Abs Auto 0.07 X10*3/uL (0.00-0.03); Imm Gran Pct Auto 0.5 % (0.0-0.4); Lymphocytes Absolute Auto 2.1 X10*3/uL (1.2-4.9); Lymphocytes Percent Auto 15.9 % (20-40); Mean Corpuscular HGB Conc 33.7 g/dl (31.0-36.0); Mean Corpuscular Hemoglobin 29.4 pg (27.0-33.0); Mean Corpuscular Volume 87.2 fL (80.0-98.0); Mean Platelet Volume 10.4 fL (9.4-12.4); Monocytes Percent Auto 7.4 % (2-11); Neutrophils Absolute Auto 9.9 x10*3/uL (2.0-8.3); Neutrophils Percent Auto 74.2 % (45-73); Platelet Count 252 X10*3/uL (160-400); Red Blood Count 5.17 X10*6/uL (4.60-5.80); White Blood Count 13.3 X10*3/uL (4.8-10.8)
[2023-08-24 20:46] LABS: INTERNATIONAL NORM RATIO 1.1 (0.9-1.1); Prothrombin Time 13.1 SEC (11.1-13.3)
[2023-08-24 20:54] LABS: Alanine Aminotransferase 19 U/L (0-40); Albumin Level 4.3 g/dL (3.5-5.0); Alkaline Phosphatase 68 U/L (39-117); Anion Gap 17 (12-20); Aspartate Amino Transferase 15 U/L (5-37); Bilirubin Total 0.4 mg/dL (0.0-1.0); Blood Urea Nitrogen 25 mg/dL (9-16); Calcium 9.5 mg/dL (8.4-10.2); Carbon Dioxide 21 mmol/L (22-29); Chloride 109 mmol/L (96-108); Creatinine Clr Calc Pharmacy 74.6; Estimated Glomerular Filt Rate > 60; Glucose Random 112 mg/dL (60-115); Potassium 4.6 mmol/L (3.3-5.1); Sodium 142 mmol/L (135-145); Total Protein 7.9 g/dL (6.5-8.0)
[2023-08-24 20:59] LABS: B Type Natriuretic Peptide 30 pg/mL (<100)
[2023-08-24 21:01] LABS: Troponin-I High Sensitivity 2.7 ng/L (<3.5-35.0)
[2023-08-24 21:19] LABS: Influenza A PCR NEGATIVE (Negative); Influenza B PCR NEGATIVE (Negative); Resp Syncy Virus RNA Qual PCR NEGATIVE (Negative); SARS COV2 PCR INHOUSE NEGATIVE (Negative)
[2023-08-24 23:56] LABS: Troponin-I High Sensitivity 3.8 ng/L (<3.5-35.0)
[2023-08-25] VITALS: BP 139/68; PULSE 95; RESP 18; TEMP 36.8; O2SAT 97
[2023-08-25 02:00] VITALS: BP 128/62; PULSE 95; RESP 16; TEMP 36.7; O2SAT 95
--- NOTE | 2023-08-25 03:29 | PC.NURSE ---
pt resting in bed playing on his cell phone no sign of distress at this time, awaiting results from [email or web address] sound.
[2023-08-25 03:57] VITALS: BP 137/88; PULSE 75; RESP 13; TEMP 37; O2SAT 98
--- NOTE | 2023-08-25 04:07 | PC.NURSE ---
pt denies any chest pain at this time, no sob, reviewed discharge instructions with pt. pt verbalized understanding. no sign of distress.
[2023-08-25 04:09] VITALS: BP 138/88; PULSE 75; RESP 16; TEMP 37; O2SAT 98
== END 2023-08-25 04:10 | disposition home or self-care (01) ==
PROVIDERS: Nurse Practitioner Family; Emergency Provider Emergency Medicine; PCP Internal Medicine
DX: R07.89 Other chest pain (principal); R06.02 Shortness of breath; R07.2 Precordial pain; M79.602 Pain in left arm; Z03.818 Encounter for observation for suspected exposure to other biological agents ruled out; Z87.891 Personal history of nicotine dependence; Z79.899 Other long term (current) drug therapy
CPT/HCPCS: 0241U; 36415; 71046; 80053; 83735; 83880; 84484; 85025; 85610; 93005; 93971; 99284

== ENCOUNTER → 2023-08-24 19:37 | Outpatient (BNV) | payer MEDICARE, SELFPAY | PROVIDERS: Emergency Provider Emergency Medicine; PCP Internal Medicine; Visit Provider Internal Medicine Cardiovascular Disease | DX: R07.9 Chest pain, unspecified (principal) | CPT/HCPCS: 93010 ==

== ENCOUNTER 2023-09-04 13:18 | Outpatient (AMB) | payer MEDICARE, SELFPAY ==
--- NOTE | 2023-09-04 13:23 | MHC.PC.OV ---
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: No Allergies No Known Allergies Allergy (Verified 09/04/23 14:12) Medication List - Last Reconciled 09/04/23 by Marquez Jones MD amlodipine 10 mg PO DAILY blood sugar diagnostic As directed check the blood sugar once a day blood sugar diagnostic (OneTouch Verio test strips) As directed once a day blood-glucose meter (OneTouch Verio Flex Meter) As directed once a day gabapentin 600 mg (2 x 300 mg) PO BID 30 days ibuprofen 800 mg PO TID PRN [Kneeling Scooter As directed] lancets As directed once a day lisinopril 40 mg PO DAILY 90 days metformin 1,000 mg PO DAILY metoprolol succinate ER 100 mg PO DAILY Tobacco use date assessed: 09/04/23 Fall risk assessment: No Falls in past year Last assessed Fall Risk: 09/04/23 Dental Screening Dental Screen Date: 04/23/23 HPI 4 month f/u - see comments HPI Details Patient comes in today for his follow up visit States that he currently feels okay and that his left foot surgery at [facility] in May 2023 went well and that the surgery site is clean and has healed up about as well as it could but he still has a small open wound over his left heel area that is completely dry with no drainage or issues He denies any fever, headaches or dizziness Denies any ear pain but states that he has been experiencing increased itching in both of his ears often lately and it sometimes just drives him crazy from the itching Denies any chest pains, no SOB No nausea/vomiting, no abdominal pain No change in bowel habits noted Needs his Tramadol Rx refilled He was not able to get his follow up labs done prior to his appointment today [facility] Medical History Diabetes Mixed hyperlipidemia Dyslipidemia Obesity (BMI 30-39.9) Insomnia Osteoarthritis Benign essential hypertension Surgical History History of foot surgery (05/03/22) History of foot surgery History of inguinal hernia repair Family History Father CAD (coronary artery disease) Acute CVA (cerebrovascular accident) Hypertension Diabetes Stroke Mother Hypertension Acute CVA (cerebrovascular accident) Intestinal cancer Sister Hypertension Von Willebrand disease Brother Hypertension Social History Housing: House Are you a primary care coordination manager to a significant other at home: No Do you presently have visiting nurse or other home services: No Alcohol intake: current Alcohol intake frequency: holidays/special occasions only Alcohol type: beer Comment: tolerable Patient Tobacco Use Status: Former Tobacco user Tobacco use type: Cigarette e-Cigarette/Vaping Use: Never Used Second Hand Smoke Exposure: Yes service: Yes ([employer]) Current occupational status: employed Current occupation: Unloading department Cognitive needs: No Hearing needs: No Vision needs: No Questionnaire Thrive Questionnaire Date Thrive assessed: 04/23/23 AUDIT C Alcohol Use Questionnaire (AUDIT-C) 1. How often do you have a drink containing alcohol?: Monthly or less 2. How many drinks containing alcohol do you have on a typical day when you are drinking?: 1 or 2 3. How often do you have six or more drinks on one occasion?: Never Total Score: 1 Score Reviewed/Action Taken: Yes CHANO-7 AMB Questionnaire CHANO-7 Date CHANO - 7 assessed: 04/23/23 Source: Developed by Drs. Marco A Calderon, Peg Champion, Abundio Mo and colleagues, with an educational jed from [employer]. Review of Systems Const Denies chills, Denies fatigue, Denies fever(s) and Denies headache(s) ENT Denies dysphagia, Denies dizziness, Denies ear discharge, Denies otalgia (but increased itching in both ears), Denies headache(s), Denies neck pain, Denies odynophagia and Denies sore throat Card Denies chest pain, Denies rapid heart rate, Denies irregular heart rhythm, Denies palpitations and Denies dyspnea Resp Denies chest congestion, Denies cough, Denies dyspnea and Denies wheezing GI Denies abdominal pain, Denies constipation, Denies dysphagia, Denies heartburn, Denies diarrhea, Denies nausea, Denies odynophagia and Denies vomiting Denies difficulty urinating, Denies nocturia and Denies urinary frequency Musc Denies back pain, Reports arthralgias (over both ankles - chronic), Denies joint swelling, Denies neck pain and Denies radiating pain into limb Skin/Breast Details: (+) chronic open wound on left heel Denies rash Neuro Denies dizziness, Denies headache(s) and Denies paresthesias Endo Denies fatigue and Denies palpitations Aller/Immun Denies wheezing Physical exam (Primary Care) Vital Signs: Last Vital Signs Pulse 79 09/04/23 13:24 BP 130/68 09/04/23 13:24 Pulse Ox 97 09/04/23 13:24 Oxygen Delivery Method Room Air 09/04/23 13:24 BMI result Body Mass Index 35.4 Tobacco/Smoking Status: Tobacco use Status Tobacco use date assessed 09/04/23 09/04/23 13:24 Patient Tobacco Use Status Former Tobacco user 09/04/23 13:24 Tobacco use type Cigarette 09/04/23 13:24 e-Cigarette/Vaping Use Never Used 09/04/23 13:24 Thrive Assessment: Date of Thrive Assessment Date Thrive assessed 04/23/23 09/04/23 13:24 Const General: no acute distress and alert HENMT Ears: TM's normal bilaterally and EAC's normal Throat: Yes posterior oropharynx normal and Yes tonsils normal (no TP congestion) Neck Neck: Yes no lymphadenopathy and Yes supple Thyroid: Thyroid normal Resp Auscultation: clear to auscultation bilaterally, no rales and no wheezes Cardio Rate: regular rate Rhythm: regular rhythm Heart sounds: no murmurs GI Palpation (GI): Soft to palpation and nontender Auscultation: normal bowel sounds General: Yes no CVA tenderness Back/Spine/Pelvis Back: no CVA tenderness Thoracic/Lumbar Spine: No lumbar spinal tenderness Skin Rashes: no rashes Extrem General: Yes no clubbing, cyanosis or edema Left lower extremity: foot ((+) chronic open wound over the left heel) Results Reviewed Results Reviewed: Laboratory Tests 03/03/23 08/24/23 08/24/23 11:05 20:25 20:26 WBC 11.0 H 13.3 H Hgb 15.2 Hct 45.1 Plt Count 252 Sodium 142 Potassium 4.6 Creatinine 1.14 Estimated GFR > 60 Random Glucose 112 Calcium 9.5 AST 15 ALT 19 Troponin I High Sens B-Natriuretic Peptide 30 08/24/23 23:29 WBC Hgb Hct Plt Count Sodium Potassium Creatinine Estimated GFR Random Glucose Calcium AST ALT Troponin I High Sens 3.8 B-Natriuretic Peptide Assessment and Plan Assessment & Plan (1) 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 Margarita Castellon or Jaret Dalton) as scheduled (2) Basal cell carcinoma of nose: Code(s): C44.311 - Basal cell carcinoma of skin of nose Plan: S/P Mohs surgery with [facility] a few months ago He was reportedly advised/reassured that his surgical margins were all clear Follow up with dermatology as scheduled (3) Benign essential hypertension: Code(s): I10 - Essential (primary) hypertension Plan: Reinforced low sodium diet - goal is systolic BP of at least 130 mm or less Continue Lisinopril 40 mg QD, Amlodipine 10 mg QD and Metoprolol ER 100 mg QD (4) DMII (diabetes mellitus, type 2): Code(s): E11.9 - Type 2 diabetes mellitus without complications Qualifiers: Diabetes mellitus complication detail: with polyneuropathy Diabetes mellitus complication status: with neurologic complications Diabetes mellitus intermediate insulin use: without terminal make up operator use Qualified Code(s): E11.42 - Type 2 diabetes mellitus with diabetic polyneuropathy Plan: In-office HgbA1c was normal at 5.5% when last checked in February 2023 - goal is < 7.0% Reinforced diabetic diet Continue Metformin ER 1000 mg BID (5) Mixed hyperlipidemia: Code(s): E78.2 - Mixed hyperlipidemia Plan: He was not able to get his follow-up labs done prior to today's visit - states that he will try to get them done TSERING Reinforced low cholesterol diet Will recheck his fasting lipids and labs in 4 months for follow up (6) Ear itching: Code(s): L29.9 - Pruritus, unspecified Plan: Will go ahead and start her on Cortisporin -HC ear drops to apply 4 drops into each ear 3 times a day for 7 days (7) Osteoarthritis: Code(s): M19.90 - Unspecified osteoarthritis, unspecified site Qualifiers: Laterality: bilateral Osteoarthritis location: knee Osteoarthritis type: primary Qualified Code(s): M17.0 - Bilateral primary osteoarthritis of knee Plan: Continue Tramadol 50 mg BID PRN, Meloxicam 15 mg QD PRN with food and Gabapentin 600 mg BID States that he has been experiencing increased pain over his right knee lately - reportedly had some x-[facility] done at the [facility] and was then sent for PT Follow up with orthopedics as scheduled (8) Obesity (BMI 30-39.9): Code(s): E66.9 - Obesity, unspecified Plan: Reinforced diet/exercise as tolerated/lose weight Plan Follow up in 4 months Medications: New Cortisporin-TC 3.3-3-10-0.5 mg/mL (dehgrcxh-bskypi-DI-thonzonium) 4 drps otic (ears) TID 10 mL 0RF 7 days NS Refilled tramadol 50 mg PO BID PRN 60 tabs 1RF pain 30 days M19.91 - Primary osteoarthritis, unspecified site Coding Level of Care Code Est Pt Level 4 (67820) Complex EM visit Add On G2211 Diagnoses 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
[2023-09-04 13:24] VITALS: BP 130/68; PULSE 79; O2SAT 97; BMI 35.4
== END 2023-09-04 14:38 | disposition home or self-care (01) ==
PROVIDERS: PCP Internal Medicine; Visit Provider Internal Medicine
DX: E11.42 Type 2 diabetes mellitus with diabetic polyneuropathy (principal); C80.1 Malignant (primary) neoplasm, unspecified; L98.499 Non-pressure chronic ulcer of skin of other sites with unspecified severity; C44.311 Basal cell carcinoma of skin of nose; I10 Essential (primary) hypertension; E78.2 Mixed hyperlipidemia; L29.9 Pruritus, unspecified; M17.0 Bilateral primary osteoarthritis of knee; E66.9 Obesity, unspecified
CPT/HCPCS: 99214; G2211

== ENCOUNTER → 2023-10-08 08:55 | Outpatient (REF) | payer OTHER, SELFPAY ==
--- NOTE | ~2023-10-08 | NM_ITS ---
Myocardial perfusion study Indication: Chest pain to evaluate for myocardial ischemia Technique: The patient was brought in for a Lexiscan perfusion study on 10/08/2023. Patient performed low-level exercise and was injected 0.4 mg of Lexiscan intravenously. Within a minute of injection, 40 mCi of sestamibi was given intravenously. Images were obtained using the SPECT gamma camera interlaced with the gating device. Images were obtained in supine position. Resting perfusion study was performed on 10/10/2023. Patient was administered 40 mCi of sestamibi intravenously at rest. Images were then obtained in supine position. Images obtained with and without CT attenuation. Total DLP 89 mGy-cm. Images were processed with the software and compared side to side in short axis, horizontal long axis and vertical long axis views. Findings: The stress perfusion study showed non attenuated images show normal uptake of radiotracer in all segments of LV myocardium. Attenuated corrected images show minimal thinning of the apex of the LV myocardium.. The gated study shows normal LV systolic function with calculated LVEF of 66%. LV cavity is normal size. The gated study shows normal systolic wall thickening and contraction of segments. Resting study shows no change in perfusion pattern compared to stress perfusion study. Gating at rest reveals normal systolic wall motion with ejection fraction at 67%. The findings are consistent with normal myocardial perfusion. NM/NM alycia perf SPECT rest & str Impression: 1. Myocardial perfusion imaging study shows normal myocardial perfusion 2. Gated LVEF is 66% 3. Transient ischemic dilatation not present EKG is nondiagnostic for ischemia
--- NOTE | 2023-10-08 08:58 | CA_ITS ---
Acquisition Time: 2023-10-08 09:59:07 Total Exercise Time: 00:02:00 Test Indications: CP Medications: SEE H Protocol: LEXISCAN Max HR: 117 BPM 76% of Pred: 152 BPM Max BP: 172/094 mmHG Max Work Load: 1.0 METS Pharmacological stress test with Lexiscan injection while sitting, with baseline 1-2/10 chest discomfort changed to a 1/10, with PACs, with normtoensive response to injection, with nondiagnoisitic EKGs. Aminophylline 75mg IVP given to reverse Lexiscan. Nuclear images pending. Test reviewed with Dr. Barahona. Referred By: Andra Chaudhari Overread By: Eloise Land
== END ==
LOC: HO.CARD 08:55
PROVIDERS: Visit Provider Nurse Practitioner Family
DX: R07.89 Other chest pain (principal)
CPT/HCPCS: 78452; 93017; A9500; J0280; J2785

== ENCOUNTER → 2023-10-08 08:58 | Outpatient (BNV) | payer OTHER, SELFPAY | PROVIDERS: Visit Provider Nurse Practitioner | DX: R07.9 Chest pain, unspecified (principal) | CPT/HCPCS: 78452; 93016; 93018 ==

== ENCOUNTER 2024-01-04 13:51 | Outpatient (AMB) | payer MEDICARE, SELFPAY ==
[2024-01-04 13:53] VITALS: BP 130/82; PULSE 54; O2SAT 98; BMI 36.1
--- NOTE | 2024-01-04 13:53 | A.OFFPC_ITS ---
Vital Signs 01/04/24 13:53 Height 5 ft 9 in Weight 244 lb 6 oz BMI 36.1 BP 130/82 Blood Pressure Location Lt brachial Position Sitting Pulse 54 Pulse Source Pulse Oximeter Pulse Oximetry (%) 98 Oxygen Delivery Method Room Air Intake Visit Reasons: [facility] f/u Utilization Management Nurse Required: No Accompanied by: Self / Same As Patient Allergies No Known Allergies Allergy (Verified 01/04/24 14:33) Medication List - Last Reconciled 01/04/24 by Marquez Jones MD amlodipine 10 mg PO DAILY atorvastatin 10 mg PO BEDTIME 90 days blood sugar diagnostic (MobileRQTouch Verio test strips) As directed once a day blood sugar diagnostic As directed check the blood sugar once a day blood-glucose meter (MobileRQTouch Verio Flex Meter) As directed once a day gabapentin 300 mg PO QAM ibuprofen 800 mg PO TID PRN [Kneeling Scooter As directed] lancets As directed once a day lisinopril 40 mg PO DAILY 90 days metformin 1,000 mg PO DAILY metoprolol succinate ER 100 mg PO DAILY tramadol 50 mg PO BID PRN 30 days Tobacco use date assessed: 01/04/24 Fall risk assessment: No Falls in past year Last assessed Fall Risk: 01/04/24 Dental Screening Dental Screen Date: 01/04/24 Did you have a dental visit in the last 12 months?: No Did you have a dental problem in the last 6 months where you did not have access to dental care?: No Was dental information given to patient?: No HPI [facility] f/u HPI Details Patient comes in today for his follow up visit States that he currently feels okay He denies any headaches or dizziness Denies any chest pains, no SOB No nausea/vomiting, no abdominal pain No change in bowel habits noted Still has recurrent joint pains but states that these have been mostly manageable lately - he only takes Gabapentin now once a day and hardly has to take any Tramadol or Ibuprofen He was not able to get his follow up labs done prior to his appointment today - states that he will try to get them done [facility] Medical History (Updated 01/04/24 @ 19:09 by Marquez Jones MD) Diabetes mellitus Diabetes Mixed hyperlipidemia Dyslipidemia Obesity (BMI 30-39.9) Insomnia Osteoarthritis Benign essential hypertension Surgical History History of foot surgery (05/03/22) History of foot surgery History of inguinal hernia repair Family History Father CAD (coronary artery disease) Acute CVA (cerebrovascular accident) Hypertension Diabetes Stroke Mother Hypertension Acute CVA (cerebrovascular accident) Intestinal cancer Sister Hypertension Von Willebrand disease Brother Hypertension Social History Housing: House Are you a primary care administrative tech to a significant other at home: No Do you presently have visiting nurse or other home services: No Alcohol intake: current Alcohol intake frequency: holidays/special occasions only Alcohol type: beer Comment: tolerable Patient Tobacco Use Status: Former Tobacco user Tobacco use type: Cigarette e-Cigarette/Vaping Use: Never Used Second Hand Smoke Exposure: Yes service: Yes ([employer]) Current occupational status: employed Current occupation: Unloading department Cognitive needs: No Hearing needs: No Vision needs: No Questionnaire PHQ-9 Over the last 2 weeks, how often have you been bothered by any of the following problems? 1. Little interest or pleasure in doing things: not at all 2. Feeling down, depressed, or hopeless: not at all 3. Trouble falling or staying asleep, or sleeping too much: not at all 4. Feeling tired or having little energy: not at all 5. Poor appetite or overeating: not at all 6. Feeling bad about yourself - or that you are a failure or have let yourself or your family down: not at all 7. Trouble concentrating on things, such as reading the newspaper or watching television: not at all 8. Moving or speaking so slowly that other people could have noticed. Or the opposite - being so fidgety or restless that you have been moving around a lot more than usual: not at all 9. Thoughts that you would be better off or of hurting yourself in some way: not at all Total score: 0 Depression Screening Interpretation: Negative Depression Screening Done: Yes 89894 - PHQ-9 Billing: Yes Source: Developed by Drs. Marco A Calderon, Peg Champion, Abundio Mo and colleagues, with an educational jed from [employer]. Thrive Questionnaire Date Thrive assessed: 01/04/24 I am a: Patient What is your living situation today?: I have a steady place to live Within the past 12 months, did the food you bought not last and you didn't have the money to get more?: Never true Within the past 12 months, did you worry whether your food would run out before you got money to buy more?: Never true Do you have trouble paying for medicines?: No Do you have trouble getting transportation to medical appointments?: No Do you have trouble paying your heating and electricity bill?: No Do you have trouble taking care of your child, family member or friend?: No Do you have trouble with day-to-day activities such as bathing, preparing meals, shopping, managing finances, etc.?: No Are you currently unemployed and looking for a job?: No Are you interested in more education?: No Please select the resources that you would like help with: None Currently or been in a relationship where the following occur: No concerns reported THRIVE Score: 0 AUDIT C Alcohol Use Questionnaire (AUDIT-C) 1. How often do you have a drink containing alcohol?: Monthly or less 2. How many drinks containing alcohol do you have on a typical day when you are drinking?: 1 or 2 3. How often do you have six or more drinks on one occasion?: Never Total Score: 1 Score Reviewed/Action Taken: Yes CHANO-7 AMB Questionnaire CHANO-7 Date CHANO - 7 assessed: 01/04/24 Feeling nervous, anxious, or on edge: 0 = Not at all Not being able to stop or control worryin = Not at all Worrying too much about different things: 0 = Not at all Trouble relaxin = Not at all Being so restless that it is hard to sit still: 0 = Not at all Becoming easily annoyed or irritable: 0 = Not at all Feeling afraid as if something awful might happen: 0 = Not at all Total CHANO-7 score (0-4 normal; 5-9 mild; 10-14 moderate; 15-21 severe): 0 Source: Developed by Drs. Marco A Calderon, Peg Champion, Abundio Mo and colleagues, with an educational jed from [employer]. Review of Systems Const Denies chills, Denies fatigue, Denies fever(s) and Denies headache(s) ENT Denies dysphagia, Denies dizziness, Denies otalgia, Denies headache(s), Denies neck pain, Denies odynophagia and Denies sore throat Card Denies chest pain, Denies rapid heart rate, Denies irregular heart rhythm, Denies palpitations and Denies dyspnea Resp Denies chest congestion, Denies cough and Denies dyspnea GI Denies abdominal pain, Denies constipation, Denies dysphagia, Denies heartburn, Denies diarrhea, Denies nausea, Denies odynophagia and Denies vomiting Denies difficulty urinating, Denies nocturia and Denies urinary frequency Musc Denies back pain, Reports arthralgias (over both ankles - chronic), Denies joint swelling, Denies neck pain and Denies radiating pain into limb Skin/Breast Details: (+) chronic open wound on left heel but lesion is dry with no drainage Denies rash Neuro Denies dizziness, Denies headache(s) and Denies paresthesias Endo Denies fatigue and Denies palpitations Physical exam (Primary Care) Vital Signs: Last Vital Signs Pulse 54 01/04/24 13:53 BP 130/82 01/04/24 13:53 Pulse Ox 98 01/04/24 13:53 Oxygen Delivery Method Room Air 01/04/24 13:53 BMI result Body Mass Index 36.1 Tobacco/Smoking Status: Tobacco use Status Tobacco use date assessed 01/04/24 01/04/24 13:54 Patient Tobacco Use Status Former Tobacco user 01/04/24 13:54 Tobacco use type Cigarette 01/04/24 13:54 e-Cigarette/Vaping Use Never Used 01/04/24 13:54 PHQ-9: PHQ-9 Score PHQ-9: Total score 0 01/04/24 14:37 Depression Screening Interpretation: Negative Thrive Assessment: Date of Thrive Assessment Date Thrive assessed 01/04/24 01/04/24 13:54 Currently or been in a relationship where the following occur: No concerns reported Const General: no acute distress and alert HENMT Ears: TM's normal bilaterally and EAC's normal Throat: Yes posterior oropharynx normal and Yes tonsils normal (no TP congestion) Neck Neck: Yes no lymphadenopathy and Yes supple Thyroid: Thyroid normal Resp Auscultation: clear to auscultation bilaterally, no rales and no wheezes Cardio Rate: regular rate Rhythm: regular rhythm Heart sounds: no murmurs GI Palpation (GI): Soft to palpation and nontender Auscultation: normal bowel sounds General: Yes no CVA tenderness Back/Spine/Pelvis Back: no CVA tenderness Thoracic/Lumbar Spine: No lumbar spinal tenderness Skin Rashes: no rashes Extrem General: Yes no clubbing, cyanosis or edema Left lower extremity: foot ((+) chronic open wound over the left heel) Coding Level of Care Code Est Pt Level 4 (13600) Diagnoses Benign essential hypertension I10 Mixed hyperlipidemia E78.2 Type 2 diabetes mellitus without complication, without long-term current use of insulin E11.9 Diabetes mellitus type: type 2 Diabetes mellitus fpc insulin use: without fpc use Diabetes mellitus complication status: without complication Primary osteoarthritis of both knees M17.0 Osteoarthritis location: knee Osteoarthritis type: primary Laterality: bilateral 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; 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 Basal cell carcinoma of nose C44.311 Obesity (BMI 30-39.9) E66.9 Assessment & Plan Assessment & Plan (1) Benign essential hypertension: Code(s): I10 - Essential (primary) hypertension Category: Medical Plan: Reinforced low sodium diet - goal is systolic BP of at least 130 mm or less Continue Lisinopril 40 mg QD, Amlodipine 10 mg QD and Metoprolol ER 100 mg QD (2) Mixed hyperlipidemia: Code(s): E78.2 - Mixed hyperlipidemia Category: Medical Plan: He was not able to get his follow-up labs done prior to today's visit - states that he will try to get them done [facility] (previous lab orders are printed out and handed to patient) Reinforced low cholesterol diet Continue Atorvastatin 10 mg QD Will recheck his fasting lipids and labs in 4 months for follow up (3) Diabetes mellitus: Code(s): E11.9 - Type 2 diabetes mellitus without complications Category: Medical Qualifiers: Diabetes mellitus type: type 2 Diabetes mellitus watermaster insulin use: without fpc use Diabetes mellitus complication status: without complication Qualified Code(s): E11.9 - Type 2 diabetes mellitus without complications Plan: In-office HgbA1c was normal at 5.4% when last checked in June 2023 - goal is < 7.0% Reinforced diabetic diet Continue Metformin ER 1000 mg QD (4) Osteoarthritis: Code(s): M19.90 - Unspecified osteoarthritis, unspecified site Category: Medical Qualifiers: Osteoarthritis location: knee Osteoarthritis type: primary Laterality: bilateral Qualified Code(s): M17.0 - Bilateral primary osteoarthritis of knee Plan: Continue Gabapentin 300 mg Q AM, Ibuprofen 800 mg TID PRN only and Tramadol 50 mg PRN only for severe pain Follow up with orthopedics as scheduled (5) 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 Margarita Castellon or Jaret Dalton) as scheduled (6) Basal cell carcinoma of nose: Code(s): C44.311 - Basal cell carcinoma of skin of nose Category: Medical Plan: S/P Mohs surgery with [facility] earlier this year (2023) He was reportedly advised/reassured that his surgical margins were all clear Follow up with dermatology as scheduled (7) Obesity (BMI 30-39.9): Code(s): E66.9 - Obesity, unspecified Category: Medical Plan: Reinforced diet/exercise as tolerated/lose weight Plan Follow up in 4 months Orders: Orders Comprehensive [place]. Panel Fast 4 Months E78.00 - Pure hypercholesterolemia, unspecified Lipid Panel 4 Months E78.00 - Pure hypercholesterolemia, unspecified Hemoglobin A1c 4 Months E11.9 - Type 2 diabetes mellitus without complications Microalbumin, Random (w Creat) 4 Months E11.9 - Type 2 diabetes mellitus without complications UA CC w/rflx Micro + Cult 4 Months R30.0 - Dysuria
== END 2024-01-04 14:43 | disposition home or self-care (01) ==
PROVIDERS: Visit Provider Internal Medicine
DX: E11.69 Type 2 diabetes mellitus with other specified complication (principal); C80.1 Malignant (primary) neoplasm, unspecified; L98.499 Non-pressure chronic ulcer of skin of other sites with unspecified severity; E66.812 Obesity, class 2; Z68.36 Body mass index [BMI] 36.0-36.9, adult; I10 Essential (primary) hypertension; E78.2 Mixed hyperlipidemia; M17.0 Bilateral primary osteoarthritis of knee; C44.311 Basal cell carcinoma of skin of nose

== ENCOUNTER → 2024-01-04 13:51 | Outpatient (BNVA) | payer MEDICARE, SELFPAY | PROVIDERS: Visit Provider Internal Medicine | DX: I10 Essential (primary) hypertension (principal); E78.2 Mixed hyperlipidemia; E11.9 Type 2 diabetes mellitus without complications; M17.0 Bilateral primary osteoarthritis of knee; C44.729 Squamous cell carcinoma of skin of left lower limb, including hip; L97.429 Non-pressure chronic ulcer of left heel and midfoot with unspecified severity; C44.311 Basal cell carcinoma of skin of nose; E66.9 Obesity, unspecified; Z79.84 Long term (current) use of oral hypoglycemic drugs; Z79.899 Other long term (current) drug therapy | CPT/HCPCS: 96127; 99212 ==

== ENCOUNTER 2024-01-09 11:06 | Outpatient (REF) | payer MEDICARE, SELFPAY ==
[2024-01-09 11:36] LABS: MANUAL DIFF FLAG NO
[2024-01-09 11:49] LABS: Basophils Absolute Auto 0.1 X10*3/uL (0.0-0.2); Basophils Percent Auto 0.5 % (0-2); Eosinophils Absolute Auto 0.2 X10*3/uL (0.0-0.4); Eosinophils Percent Auto 2.5 % (0-4); Hematocrit 44.5 % (42.0-52.0); Hemoglobin 15.6 g/dl (14.0-18.0); Imm Gran Abs Auto 0.05 X10*3/uL (0.00-0.03); Imm Gran Pct Auto 0.5 % (0.0-0.4); Lymphocytes Absolute Auto 2.4 X10*3/uL (1.2-4.9); Lymphocytes Percent Auto 25.9 % (20-40); Mean Corpuscular HGB Conc 35.1 g/dl (31.0-36.0); Mean Corpuscular Hemoglobin 29.8 pg (27.0-33.0); Mean Corpuscular Volume 84.9 fL (80.0-98.0); Mean Platelet Volume 10.7 fL (9.4-12.4); Monocytes Absolute Auto 0.7 X10*3/uL (0.1-1.2); Neutrophils Absolute Auto 5.9 x10*3/uL (2.0-8.3); Neutrophils Percent Auto 63.6 % (45-73); Platelet Count 215 X10*3/uL (160-400); Red Blood Count 5.24 X10*6/uL (4.60-5.80); Red Cell Distribution Width 12.6 % (11.0-16.0); White Blood Count 9.2 X10*3/uL (4.8-10.8)
[2024-01-09 12:24] LABS: Estimated Average Glucose 114 mg/dL; Hemoglobin A1C 149.5768 umol/L; Hemoglobin A1c % 5.6 % (<6.0); Total Hemoglobin (HGBA1C) 3916.7323 umol/L
[2024-01-09 12:40] LABS: Alanine Aminotransferase 31 U/L (0-40); Albumin Level 4.3 g/dL (3.5-5.0); Alkaline Phosphatase 62 U/L (39-117); Anion Gap 10 (12-20); Aspartate Amino Transferase 24 U/L (5-37); Bilirubin Total 0.7 mg/dL (0.0-1.0); Blood Urea Nitrogen 19 mg/dL (9-16); Calcium 9.3 mg/dL (8.4-10.2); Carbon Dioxide 26 mmol/L (22-29); Chloride 109 mmol/L (96-108); Cholesterol 171 mg/dL (<200); Estimated Glomerular Filt Rate > 60; Glucose Fasting 133 mg/dL (60-99); HDL Cholesterol 33 mg/dL (>40); LDL Cholesterol Calculated 81 mg/dL (<100); Potassium 4.2 mmol/L (3.3-5.1); Sodium 141 mmol/L (135-145); Total Protein 7.4 g/dL (6.5-8.0); Triglycerides 289 mg/dL (<150)
[2024-01-09 12:55] LABS: TSH reflex Free T4 1.13 uIU/mL (0.32-4.0); Vitamin D 25-OH Total 21.9 ng/mL (>30)
[2024-01-09 13:06] LABS: Appearance Urine Clear; Color Urine Yellow; Glucose Urine UA Negative (Negative); Leukocyte Esterase Urine Negative (Negative); Nitrite Urine Negative (Negative); PH 5.5 (5.0-9.0); Urine Blood Negative (Negative); Urine Ketones Negative (Negative); Urine Protein Trace mg/dL (Neg-Trace)
[2024-01-09 13:22] LABS: Creatinine Urine 163.03 mg/dL; Microalbum/Creatinine Ratio Ur 49.6 ug/mg cr (<30)
== END 2024-01-09 11:07 | disposition home or self-care (01) ==
LOC: HO.LAB 11:06
PROVIDERS: PCP Internal Medicine; Visit Provider Internal Medicine
DX: R30.0 Dysuria (principal); E11.9 Type 2 diabetes mellitus without complications; E55.9 Vitamin D deficiency, unspecified; E78.00 Pure hypercholesterolemia, unspecified; D64.9 Anemia, unspecified
CPT/HCPCS: 36415; 80053; 80061; 81003; 82043; 82306; 82570; 83036; 84443; 85025

== ENCOUNTER 2024-10-30 13:17 | Outpatient (AMB) | payer MEDICARE, SELFPAY ==
[2024-10-30 13:39] VITALS: BP 96/64; PULSE 71; O2SAT 96; BMI 34.8
--- NOTE | 2024-10-30 13:39 | MHC.PC.OV ---
Vital Signs 10/30/24 13:39 Height 5 ft 9 in Weight 235 lb 6 oz BMI 34.8 BP 96/64 Blood Pressure Location Lt brachial Position Sitting Pulse 71 Pulse Source Pulse Oximeter Pulse Oximetry (%) 96 Oxygen Delivery Method Room Air Intake Visit Reasons: annual exam - see comments Telemetry Registered Nurse Required: No Accompanied by: Self / Same As Patient Allergies No Known Allergies Allergy (Verified 10/30/24 14:11) Medication List - Last Reconciled 10/30/24 by Marquez Jones MD amlodipine 10 mg PO DAILY atorvastatin 10 mg PO BEDTIME 90 days blood sugar diagnostic (Morgan EverettTouch Verio test strips) As directed once a day blood sugar diagnostic As directed check the blood sugar once a day blood-glucose meter (Morgan EverettTouch Verio Flex Meter) As directed once a day gabapentin 600 mg (2 x 300 mg) PO BID 90 days ibuprofen 800 mg PO TID PRN [Kneeling Scooter As directed] lancets As directed once a day lisinopril 40 mg PO DAILY 90 days metformin 1,000 mg PO DAILY metoprolol succinate ER 100 mg PO DAILY tramadol 50 mg PO BID PRN 30 days Tobacco use date assessed: 10/30/24 Fall risk assessment: No Falls in past year Last assessed Fall Risk: 10/30/24 Dental Screening Dental Screen Date: 10/30/24 Did you have a dental visit in the last 12 months?: No Did you have a dental problem in the last 6 months where you did not have access to dental care?: No Was dental information given to patient?: No HPI annual exam - see comments HPI Details Patient comes in today for his annual physical examination States that he feels okay States that his foot doctor tanning to do another biopsy on the chronic ulcer on his left heel soon as they are concerned about the possibility of recurrence of skin cancer around this ulcer site He denies any headaches or dizziness Denies any chest pains, no increased shortness of breath No nausea/vomiting, no abdominal pain No change in bowel habits noted He denies any acute urinary symptoms He has no follow-up labs done recently States that he presently has a Cologuard test kit at home that he received from his insurance company about a month ago that he has not gotten around to doing yet; he has never had a screening colonoscopy done in the past, by choice [facility] Medical History (Updated 11/02/24 @ 11:58 by Marquez Jones MD) Diabetes mellitus Mixed hyperlipidemia Obesity (BMI 30-39.9) Insomnia Osteoarthritis Benign essential hypertension Surgical History History of skin graft Hx of foot surgery History of foot surgery (05/03/22) History of foot surgery History of inguinal hernia repair Family History Father CAD (coronary artery disease) Acute CVA (cerebrovascular accident) Hypertension Diabetes Stroke Mother Hypertension Acute CVA (cerebrovascular accident) Intestinal cancer Sister Hypertension Von Willebrand disease Brother Hypertension Social History Housing: House Are you a primary health care analyst to a significant other at home: No Do you presently have visiting nurse or other home services: No Alcohol intake: current Alcohol intake frequency: holidays/special occasions only Alcohol type: beer Comment: tolerable Patient Tobacco Use Status: Former Tobacco user Tobacco use type: Cigarette e-Cigarette/Vaping Use: Never Used Second Hand Smoke Exposure: Yes service: Yes ([employer]) Current occupational status: employed Current occupation: Unloading department Cognitive needs: No Hearing needs: No Vision needs: No Questionnaire PHQ-9 Over the last 2 weeks, how often have you been bothered by any of the following problems? 1. Little interest or pleasure in doing things: not at all 2. Feeling down, depressed, or hopeless: not at all 3. Trouble falling or staying asleep, or sleeping too much: more than half the days 4. Feeling tired or having little energy: several days 5. Poor appetite or overeating: not at all 6. Feeling bad about yourself - or that you are a failure or have let yourself or your family down: not at all 7. Trouble concentrating on things, such as reading the newspaper or watching television: not at all 8. Moving or speaking so slowly that other people could have noticed. Or the opposite - being so fidgety or restless that you have been moving around a lot more than usual: not at all 9. Thoughts that you would be better off or of hurting yourself in some way: not at all Total score: 3 Depression Screening Interpretation: Negative Depression Screening Done: Yes 43030 - PHQ-9 Billing: Yes Source: Developed by Drs. Marco A Calderon, Peg Champion, Abundio Mo and colleagues, with an educational jed from [employer]. Thrive Questionnaire Date Thrive assessed: 10/30/24 I am a: Patient What is your living situation today?: I have a steady place to live Within the past 12 months, did the food you bought not last and you didn't have the money to get more?: I choose not to answer this question Within the past 12 months, did you worry whether your food would run out before you got money to buy more?: I choose not to answer this question Do you have trouble paying for medicines?: I choose not to answer this question Do you have trouble getting transportation to medical appointments?: I choose not to answer this question Do you have trouble paying your heating and electricity bill?: I choose not to answer this question Do you have trouble taking care of your child, family member or friend?: I choose not to answer this question Do you have trouble with day-to-day activities such as bathing, preparing meals, shopping, managing finances, etc.?: I choose not to answer this question Are you currently unemployed and looking for a job?: I choose not to answer this question Are you interested in more education?: I choose not to answer this question Please select the resources that you would like help with: None Currently or been in a relationship where the following occur: I choose not to answer THRIVE Score: 0 AUDIT C Alcohol Use Questionnaire (AUDIT-C) 1. How often do you have a drink containing alcohol?: Monthly or less 2. How many drinks containing alcohol do you have on a typical day when you are drinking?: 1 or 2 3. How often do you have six or more drinks on one occasion?: Never Total Score: 1 Score Reviewed/Action Taken: Yes CHANO-7 AMB Questionnaire CHANO-7 Date CHANO - 7 assessed: 10/30/24 Feeling nervous, anxious, or on edge: 0 = Not at all Not being able to stop or control worryin = Not at all Worrying too much about different things: 0 = Not at all Trouble relaxin = Not at all Being so restless that it is hard to sit still: 0 = Not at all Becoming easily annoyed or irritable: 1 = Several days Feeling afraid as if something awful might happen: 1 = Several days Total CHANO-7 score (0-4 normal; 5-9 mild; 10-14 moderate; 15-21 severe): 2 Source: Developed by Drs. Marco A Calderon, Peg Champion, Abundio Mo and colleagues, with an educational jed from [employer]. Review of Systems Const Denies chills, Denies fatigue, Denies fever(s), Denies headache(s), Denies malaise and Denies weakness Eyes Denies blurry vision, Denies change in vision, Denies irritation and Denies itchy eyes ENT Denies dysphagia, Denies dizziness, Denies otalgia, Denies headache(s), Denies nasal congestion, Denies neck pain, Denies odynophagia and Denies sore throat Card Denies chest pain, Denies rapid heart rate, Denies irregular heart rhythm, Denies palpitations and Denies dyspnea Resp Denies chest congestion, Denies cough, Denies dyspnea and Denies wheezing GI Denies abdominal pain, Denies bloating, Denies constipation, Denies dysphagia, Denies heartburn, Denies diarrhea, Denies nausea, Denies odynophagia and Denies vomiting Denies hematuria, Denies difficulty urinating, Denies dysuria, Denies urinary frequency and Denies urinary urgency Musc Denies back pain, Denies arthralgias, Denies joint swelling, Denies muscle weakness and Denies neck pain Skin/Breast Denies change in pigmentation, Denies lesions, Denies rash and Denies unusual bruising Neuro Denies dizziness, Denies headache(s), Denies paresthesias and Denies weakness Endo Denies fatigue and Denies palpitations Aller/Immun Denies itchy eyes and Denies wheezing Physical exam (Primary Care) Vital Signs: Last Vital Signs Pulse 71 10/30/24 13:39 BP 96/64 10/30/24 13:39 Pulse Ox 96 10/30/24 13:39 Oxygen Delivery Method Room Air 10/30/24 13:39 BMI result Body Mass Index 34.8 Tobacco/Smoking Status: Tobacco use Status Tobacco use date assessed 10/30/24 10/30/24 13:40 Patient Tobacco Use Status Former Tobacco user 10/30/24 13:40 Tobacco use type Cigarette 10/30/24 13:40 e-Cigarette/Vaping Use Never Used 10/30/24 13:40 PHQ-9: PHQ-9 Score PHQ-9: Total score 3 10/30/24 14:13 Depression Screening Interpretation: Negative Thrive Assessment: Date of Thrive Assessment Date Thrive assessed 10/30/24 10/30/24 13:40 Currently or been in a relationship where the following occur: I choose not to answer Const General: no acute distress, alert and awake Orientation/consciousness: patient oriented x3 HENMT Head: Yes normocephalic and Yes atraumatic Ears: external ears normal, TM's normal bilaterally and EAC's normal General nose exam: No nasal discharge present Face and sinus: Yes normal facial exam and Yes sinuses nontender Teeth and gingiva: dentition normal Throat: Yes posterior oropharynx normal and Yes tonsils normal (no TP congestion) Eyes Eyelids: Yes eyelids normal Conjunctivae: conjunctivae normal Pupils: Equal, round and reactive pupils present EOM: EOMs intact bilaterally Neck Neck: Yes no lymphadenopathy and Yes supple Thyroid: Thyroid normal Resp Auscultation: clear to auscultation bilaterally, no rales and no wheezes Cardio Rate: regular rate Rhythm: regular rhythm Heart sounds: no murmurs GI Palpation (GI): Soft to palpation, nontender and No hepatosplenomegaly present Auscultation: normal bowel sounds General: Yes no CVA tenderness Back/Spine/Pelvis Back: no CVA tenderness Thoracic/Lumbar Spine: thoracic and lumbar spine normal to inspection Skin Lesions: no lesions Rashes: no rashes Neuro General: patient oriented x3, moves all extremities, no focal motor deficits and CN's II-XI intact bilaterally Cranial nerves: Yes Equal, round and reactive pupils present Cognition (Neuro): normal cognition Gait exam (Neuro): Normal gait present Extrem General: Yes no clubbing, cyanosis or edema Coding Level of Care Code Est Pt Prev Care >65y(82547) Diagnoses Annual physical exam Z00.00 Benign essential hypertension I10 Mixed hyperlipidemia E78.2 Type 2 diabetes mellitus without complication, without long-term current use of insulin E11.9 Diabetes mellitus type: type 2 Diabetes mellitus intermodal customer service insulin use: without shelter use Diabetes mellitus complication status: without complication Primary osteoarthritis of both knees M17.0 Osteoarthritis location: knee Osteoarthritis type: primary Laterality: bilateral 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; 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 Basal cell carcinoma of nose C44.311 Obesity (BMI 30-39.9) E66.9 Additional Codes PHQ-9 - 32323 - PHQ-9 Billing: Yes ([id number]) Assessment & Plan Assessment & Plan (1) Annual physical exam: Code(s): Z00.00 - Encounter for general adult medical examination without abnormal findings Category: Medical Plan: Check labs Patient states that he has never had a screening colonoscopy done in the past, by personal choice States that he presently has a Cologuard test kit at home that he received from his insurance company about a month ago that he has not gotten around to doing yet (2) Benign essential hypertension: Code(s): I10 - Essential (primary) hypertension Category: Medical Plan: Reinforced low sodium diet - goal is systolic BP of at least 130 mm or less Continue Lisinopril 40 mg QD, Amlodipine 10 mg QD and Metoprolol ER 100 mg QD (3) Mixed hyperlipidemia: Code(s): E78.2 - Mixed hyperlipidemia Category: Medical Plan: Will send patient for some follow-up labs to recheck his fasting lipids TSERING as he has not had any follow-up labs done in a while now Reinforced low cholesterol diet Continue Atorvastatin 10 mg QD Will recheck his fasting lipids and labs in 4 months for follow up (4) Diabetes mellitus: Code(s): E11.9 - Type 2 diabetes mellitus without complications Category: Medical Qualifiers: Diabetes mellitus type: type 2 Diabetes mellitus shelter insulin use: without shelter use Diabetes mellitus complication status: without complication Qualified Code(s): E11.9 - Type 2 diabetes mellitus without complications Plan: His HgbA1c was at 5.6% when last checked in December 2023; in-office HgbA1c was also normal at 5.4% backin June 2023 - goal is < 7.0% Reinforced diabetic diet Continue Metformin ER 1000 mg QD (5) Osteoarthritis: Code(s): M19.90 - Unspecified osteoarthritis, unspecified site Category: Medical Qualifiers: Osteoarthritis location: knee Osteoarthritis type: primary Laterality: bilateral Qualified Code(s): M17.0 - Bilateral primary osteoarthritis of knee Plan: Continue Gabapentin 300 mg Q AM, Ibuprofen 800 mg TID PRN only and Tramadol 50 mg PRN only for severe pain Follow up with orthopedics as scheduled (6) 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: Comment: on the left heel Code(s): C80.1 - Malignant (primary) neoplasm, unspecified; L98.499 - Non-pressure chronic ulcer of skin of other sites with unspecified severity Category: Medical Plan: Bx of chronic left heel wound/ulcer came back positive for well-differentiated squamous cell carcinoma with tumor extending to the base and peripheral margins of the sample tissue He eventually underwent surgical excision and resection of the involved structures/areas of the foot/heel involved in June 2023 at [facility] in [place] He was doing well since but states that 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 Margarita Castellon or Jaret Dalton) as scheduled (7) Basal cell carcinoma of nose: Code(s): C44.311 - Basal cell carcinoma of skin of nose Category: Medical Plan: S/P Mohs surgery with [facility] earlier this year (2023) He was reportedly advised/reassured that his surgical margins were all clear Follow up with dermatology as scheduled (8) Obesity (BMI 30-39.9): Code(s): E66.9 - Obesity, unspecified Category: Medical Plan: Reinforced diet/exercise as tolerated/lose weight Plan Follow up in 4 months Orders: Orders Complete Blood Count Auto Diff 10/30/24 D64.9 - Anemia, unspecified, Z00.00 - Encounter for general adult medical examination without abnormal findings Vitamin B12 and Folate 10/30/24 E53.8 - Deficiency of other specified B group vitamins, Z00.00 - Encounter for general adult medical examination without abnormal findings Vitamin D 25-OH Total 10/30/24 E55.9 - Vitamin D deficiency, unspecified, Z00.00 - Encounter for general adult medical examination without abnormal findings Hemoglobin A1c 10/30/24 E11.9 - Type 2 diabetes mellitus without complications, Z00.00 - Encounter for general adult medical examination without abnormal findings UA CC w/rflx Micro + Cult 10/30/24 R30.0 - Dysuria, Z00.00 - Encounter for general adult medical examination without abnormal findings Complete Blood Count Auto Diff 4 Months D64.9 - Anemia, unspecified TSH reflex Free T4 10/30/24 E78.00 - Pure hypercholesterolemia, unspecified, Z00.00 - Encounter for general adult medical examination without abnormal findings Prostate Specific Antigen 10/30/24 N40.0 - Benign prostatic hyperplasia without lower urinary tract symptoms, Z00.00 - Encounter for general adult medical examination without abnormal findings Comprehensive [place]. Panel Fast 10/30/24 E78.00 - Pure hypercholesterolemia, unspecified, Z00.00 - Encounter for general adult medical examination without abnormal findings Lipid Panel 10/30/24 E78.00 - Pure hypercholesterolemia, unspecified, Z00.00 - Encounter for general adult medical examination without abnormal findings Microalbumin, Random (w Creat) 10/30/24 E11.9 - Type 2 diabetes mellitus without complications, Z00.00 - Encounter for general adult medical examination without abnormal findings Hemoglobin A1c 6 Months E11.9 - Type 2 diabetes mellitus without complications Microalbumin, Random (w Creat) 3 Months E11.9 - Type 2 diabetes mellitus without complications Comprehensive [place]. Panel Fast 3 Months E78.00 - Pure hypercholesterolemia, unspecified UA CC w/rflx Micro + Cult 3 Months R30.0 - Dysuria
--- OUTSIDE RECORDS SUMMARY | 2024-10-30 14:10 | XMS_ITS | Patient Health Record ---
[facility] Address [address] [place] [address] Care Team Providers Care Feeder Catcher Tobacco Name Role Phone Robert MARTI, Marquez Primary Care Provider Margarita Saxena Unavailable [phone] Allergies No Known Allergies Reason For Referral No Information Medications Medication SIG (Take, Route, Frequency, Duration) Notes Start Date End Date Status amLODIPine Besylate 10 MG 1 tablet Orall y Once a day; Duration: 30 day(s) Active Lisinopril 40 MG 1 tablet Orally Once a day; Duration: 30 day(s) Active Ibuprofen 800 MG 1 tablet with food o r milk as needed Orally every 8 hrs Active Clotrimazole 1 % 1 application Perfect Binder Operator ally Twice a day; Duration: 28 day(s) Active Doxycycline Hyclate 100 MG 1 capsule Ora lly Twice a day; Duration: 14 days 11/14/2021 Active Metoprolol Succinate ER 100 MG 1 tablet Orally Once a day; Duration: 30 day(s) Active Aspirin 81 MG 1 tablet Orally Once a day; Duration: 30 day(s) Active traMADol HCl 50 MG 1 tablet as needed O rally Once a day Active Ciclopirox Olamine 0.77 % 1 application to affected area Externally to feet Twice a day; Duration: 30 days Active metFORMIN HCl ER (OSM) 1000 MG 1 tablet with evening meal Orally Once a day Active Extra Depth Orthopedic Shoes (1 Pair) with Customized Heat Molded Multidensity Innersoles (3 Pair) as directed Dx: NIDDM/Polyneuropathy (E11.42), Hammertoe Foot Deformity (M20.41,M20.42), Preulcerative Skin Lesion(s) (L85.1 10/21/2021 Active metFORMIN HCl Active Neurontin 300 MG 1 capsule Orally Onc e a day at night; Duration: 90 days 10/21/2021 Active Meloxicam 15 MG 1 tablet Orally Once a day; Duration: 30 day(s) Active Keflex 500 MG 1 capsule Orally edgar ry 12 hrs; Duration: 10 day(s) 11/08/2021 Active Social History Tobacco Use: Social History Observation Description Date Details (start date - stop date) Former Smoker NA - NA Tobacco Use/Smoking Question Answer Notes Are you a: former smoker Additional Findings: Tobacco Non-User Current no n-smoker Alcohol Screen Question Answer Notes Did you have a drink contain ing alcohol in the past year? Yes How often did you have a dri nk containing alcohol in the past year? Monthly or less (1 point) Points 1 Interpretation Negative Tobacco use other than smoking: Question Answer Notes Are you an other tobacco user? No Problems Problem Type SNOMED Code ICD Code Onset Dates Problem Status W/U Status Risk Notes Problem Acquired hammer toe of right foot ([id number] ) Hammer toe of right foot (M20.41) Active confirmed Problem Acquired hammer toe of left foot (2310241876914230 ) Hammer toe of left foot (M20.42) Active confirmed Problem Polyneuropathy due to type 2 diabetes mellitus (088252812) Type 2 diabetes mellitus with polyneuropathy (E11.42) Active confirmed Problem Ulcer of left lower leg (disorder) (7755932038462903 3) Non-pressure ulcer of left lower extremity with fat layer exposed (L97.922) Active confirmed Plan Of Treatment Pending Test Test Name Order Date Hemoglobin A1c 10/21/2021 Hemoglobin A1c 10/21/2021 X ray : Foot, left 3V 09/23/2021 HEMOGLOBIN A1C (GLYCOHEMOGLOBIN) 022 Insurance Providers Payer Name Payer Address Payer Phone Subscriber Number Group Number Insured Name Patient Relationship to Insured Coverage Start Date Coverage End Date [employer] [id number] [address] [address] [place] [address] [id number] Jaret Rojas Self - patient is the insured Medical (General) History Medical History History ICD Code Heart murmur osteoarthritis Hypertension Insomnia Diabetes Surgical History Surgery Date(Month/Year) Hernia Repair debridement skin ulcer, biopsy skin lesi on- left 12/01/2021
--- OUTSIDE RECORDS SUMMARY | 2024-10-30 14:10 | XMS_ITS ---
Author Organization [facility] [place] Care Team Providers Care Cold Rolling Coordinator Name Role Phone Tj Nicole Head Unavailable Unavailable Allergies and adverse reactions Code CodeSystem Substance Reaction Severity StartDate Concern Status 7804 RXNORM OxyCONTIN Unknown 05/09/2023 active Care Team Name Role Address Phone Organization Dates Nicole Spencer [address], [facility], [facility] (Office): : : Neelima patiño [place] 05/09/2023 - 05/25/2023 Functional Status Functional Condition Code Code System Date Dependence on Cane 147557411 SNOMED CT Immunizations Immunization Status Vaccine Details Vaccine Code CodeSystem Date Notes TB 1 Step Mantoux (PPD) completed tuberculin skin test; purified protein derivative solution, intradermal lotNumber: [id number] expiry: 05/17/2024 Mfg: par pharm Given 0.1 ml Left Forearm intradermally 96 CVX created date: 05/20/2023 consent date: 05/20/2023 administere d date: 05/20/2023 TB 2 Step Mantoux Skin Test completed tuberculin skin test; purified protein derivative solution, intradermal lotNumber: [id number] expiry: 06/16/2024 Mfg: [facility] Given 0.1 ml Left Forearm intradermally Step 1 of Multi-step with next step required 96 CVX created date: 05/10/2023 consent date: 05/10/2023 administere d date: 05/10/2023 TDAP(tetanus/dipt h/pertuss) completed tetanus toxoid, reduced diphtheria toxoid, and acellular pertussis vaccine, adsorbed 115 CVX created date: 05/14/2023 administere d date: 06/13/2020 COVID-19 Vaccine Dose 1 completed unknown vaccine or immune globulin Mfg: COVID Pfizer 999 CVX created date: 05/14/2023 administere d date: 07/22/2020 COVID-19 Vaccine Additional Dose/Booster completed unknown vaccine or immune globulin Mfg: [facility] bivalent covid-19 12+ 999 CVX created date: 05/14/2023 administere d date: 04/19/2022 PCV (Prevnar) 20 cancelled Pneumococcal conjugate vaccine 20-valent (PCV20), polysaccharide [id number] conjugate, adjuvant, preservative free 216 CVX created date: 05/14/2023 consent date: 05/14/2023 influenza-Afluria Standard 0.5ml Prefilled (SNU233) cancelled Influenza, split virus, quadrivalent, injectable, preservative free 150 CVX created date: 05/14/2023 consent date: 05/14/2023 Comirnaty ([facility]) COVID19 [id number] cancelled SARS-COV-2 (COVID-19) vaccine, mRNA, spike protein, LNP, preservative free, ariel-sucrose, 30 mcg/0.3 mL dose 309 CVX created date: 05/14/2023 consent date: 05/14/2023 Mental Status Section Date Assessment Total Score Description 05/25/2023 CAM 0 No delirium ind icated 05/13/2023 BIMS 14 cognitively int act CAM 0 No delirium ind icated PHQ-9 01 minimal depress ion Problems Problem # Description Date of onset Resolved Date Code CodeSystem Concern Status 1 COVID-19 05/17/[address] active 2 MUSCLE WEAKNESS (GENERALIZED) 05/10/[address] active 3 UNSTEADINESS ON FEET 05/10/[address] active 4 BASAL CELL CARCINOMA OF SKIN OF NOSE 05/09/[address] active 5 BODY MASS INDEX [BMI] 35.0-35.9, ADULT 05/09/[address] active 6 ENCOUNTER FOR SURGICAL AFTERCARE FOLLOWING SURGERY ON THE SKIN AND SUBCUTANEOUS TISSUE 05/09/[address] active 7 ESSENTIAL (PRIMARY) HYPERTENSION 05/09/[address] active 8 GASTRO-ESOPHAGEAL REFLUX DISEASE WITHOUT ESOPHAGITIS 05/09/[address] active 9 OBESITY, UNSPECIFIED 05/09/[address] active 10 PRESENCE OF OTHER SPECIFIED DEVICES 05/09/[address] active 11 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, INCLUDING HIP 05/09/[address] active 12 TYPE 2 DIABETES MELLITUS WITHOUT COMPLICATIONS 05/09/[address] active 13 UNILATERAL PRIMARY OSTEOARTHRITIS, RIGHT KNEE 05/09/[address] active 14 UNSPECIFIED HEARING LOSS, UNSPECIFIED EAR 05/09/[address] active Reason for Referral No Reasons for Referral Entered Social History Social History Observation Description Start Date End Date Code Code System Current Smoking Status Tobacco smoking consumption unknown 343125653 SNOMED CT Sex Assigned At Male 1955 88171-4 [facility] Gender Identity Vital Signs Code Code System Vitals Name Values and Units Timing Information 09094-7 [facility] Pain Level Value=0.0 05/25/2023 93261-8 LO[facility] Weight Qsnjk=945.2 Units=Lbs 08/2023 9279-1 INC Respiratory Rate Value=18.0 Units=/m in 05/23/2023 8462-4 LO[facility] Blood Pressure-Diastolic Value=76 Un its=mmHg 05/23/2023 8480-6 LOINC Blood Pressure-Systolic Ioksr=031 Un its=mmHg 05/23/2023 [facility] Heart rate Value=85.0 Units=/min 08/2023 11882-8 [facility] O2 % BldC Oximetry Value=97.0 Units= % 05/23/2023 8310-5 [facility] Body Temperature Value=97.8 Units= F 05/23/2023 2339-0 [facility] Blood Sugar Pwpkq=318.0 Units=mg/dL 05/16/2023 8302-2 [facility] Height Value=69.0 Units=Inches 05/10/2023
--- OUTSIDE RECORDS SUMMARY | 2024-10-30 14:10 | XMS_ITS | Clinical Summary ---
Author Organization [facility] Address [address] [place] [address] Care Team Providers Care Marketing Finance Manager Name Role Phone Andra Chaudhari NP Primary Care Provider [phone] Allergies Active Allergy Reactions Criticality Noted Date Comments Oxycodone Other (see comments) 04/20/2023 Wishes to avoid all narcotics Medications gabapentin (NEURONTIN) 300 mg capsule Take 600 mg by mouth 2 times a day. Pt states taking 300mg daily tlp concrete buildings assembler 02/10/2023 Active metFORMIN (GLUCOPHAGE) 1,000 mg tablet Take 1,000 mg by mouth. 02/10/2023 Active ibuprofen (MOTRIN) 800 mg tablet SMARTSI Tablet(s) By Mouth 3 Times Daily PRN 12/02/2022 Active amLODIPine (NORVASC) 10 mg tablet Take 10 mg by mouth. 02/10/2023 Active metoprolol succinate XL (TOPROL XL) 100 mg tablet SMARTSI Tablet(s) By Mouth Daily 11/27/2022 Active lisinopriL (PRINIVIL,ZESTR IL) 40 mg tablet Take 40 mg by mouth. 02/10/2023 Active OneTouch Delica Plus Lancet lancet 33 gauge USE DIRECTED ONCE A DAY 03/21/2023 Active OneTouch Verio test strips USE DIRECTED ONCE A DAY 03/21/2023 Active acetaminophen/d iphenhydramine (TYLENOL PM EXTRA STRENGTH ORAL) Take 2 tablets by mouth at bed time. Active chlorthalidone (HYGROTON) 25 mg tablet Take 25 mg by mouth. 03/06/2024 Active atorvastatin (LIPITOR) 10 mg tablet SMARTSI Tablet(s) By Mouth Every Night 04/04/2024 Active Active Problems Problem Noted Date Diagnosed Date H/O skin graft 06/19/2023 Surgical wound present 05/23/2023 Squamous cell carcinoma of left foot 03/28/2023 Inguinal adenopathy 03/28/2023 Immunizations Immunization Administration Dates Next Due Influenza, High Dose Seasona l, Quadrivalent PF 05/09/2023(Deferred: Patient Refused) Family History Medical History Relation Name Comments Diabetes Father Heart disease Father CABG x4 Colon cancer Mother Breast cancer Sister Relation Name Status Comments Father Mother Sister Social History Tobacco Use Types Packs/Day Years Used Date Smoking Tobacco: Former Cigarettes Q uit: 1993 Passive Smoke Exposure: Past Smokeless Tobacco: Never Tobacco Cessation:Counseling Given: Not Answered Alcohol Use Standard Drinks/Week Comments Yes 0 (1 standard drink = 0.6 oz pur e alcohol) rare Sex and Gender Information Value Date Recorded Sex Assigned at Male 03/23/2023 7:09 AM EST Legal Sex Male 10:35 AM EST Gender Identity Male 03/23/2023 7:09 AM EST Sexual Orientation Straight 03/23/2023 7: 09 AM EST Last Filed Vital Signs Vital Sign Reading Time Taken Comments Blood Pressure 129/74 05/14/2024 11:08 AM EST Pulse 73 05/14/2024 11:08 AM EST Temperature 36.5 C (97.7 F) 05/14/2024 11:08 AM EST Respiratory Rate 16 11/06/2023 2:10 PM EDT Oxygen Saturation 98% 05/14/2024 11:08 AM EST Inhaled Oxygen Concentration - - Weight 109.8 kg (242 lb) 05/14/2024 11:08 AM EST Height 175.3 cm (5' 9 ) 05/14/2024 11:08 AM EST Body Mass Index 35.74 05/14/2024 11:08 AM EST Plan of Treatment Upcoming Encounters Date Type Department Care Team (Late st Contact Info) Description 11/11/2024 10:00 AM EDT Office Visit [facility] [address] [place] [phone] [employer]arry Plug And Feather Driller: Meg Holloway MD [address] [place] [address] Heidi Cordova PA [address], [place] [phone] 05/15/2025 11:00 AM EST Office Visit [facility] [address], [place] [phone] Quarry Plug And Feather Driller: Meg Holloway MD [address], [place] [phone] Health Maintenance Due Date Last Done Comments Cologuard 1955 Colon Cancer Screening 1955 Colonoscopy 1955 FOBT / Fit Test 1955 Hepatitis C Screening 1955 Sigmoidoscopy 1955 Pneumococcal Vaccine: 50+ Years (1 of 1 - PCV) 2005 Zoster Vaccines (1 of 2) 2005 Abdominal Aortic Aneurysm (AAA) Screening 2020 COVID-19 Vaccine ( season) 2023 04/19/2022, 04/19/2022, 07/22/2020, Additional history exists Alcohol/Substance Use Screening 03/19/2024 04/09/2023 Depression Screening and Follow-Up 03/19/2024 Health Care Proxy Review 03/19/2024 Social Drivers of Health Annual Screening 03/19/2024 Influenza Vaccine (#1) 2024 RSV Vaccine (60+ years old and patients) (1 - 1-dose 75+ series) 2030 DTaP,Tdap,and Td Vaccines (3 - Td or Tdap) 06/13/2030 06/13/2020, 06/13/2010 Hepatitis B Vaccines Aged Out No long er eligible based on patient's age to complete this topic Medical Devices Implanted Type Area Account Administrator Device Identifier Shelf Expiration Date Model / Serial / Lot Dressing Wound Matrix Bilayer Collagen And Silicone [id number] - [id number] Implanted:Qty: 1 on 05/02/2023 by Arnaud Rosales MD at [facility] Implant Left: Heel [employer] 12/16/2024 [id number] / / [id number] Insurance [facility] MCR REPLACE A[facility] HSNO/FREE CARE [facility] ADMIN [facility] Advance Directives Documents on File Type Date Recorded Patient Weigher Packing Expl anation Health Care Proxy 05/02/2023 6:17 AM * Presumed Full Code (Latest Code Status on File) Date Activated Date Inactivated Comments 06/08/2023 4:46 PM 06/14/2023 12:38 PM * Full Code Date Activated Date Inactivated Comments 06/08/2023 11:07 AM 06/08/2023 4:46 PM * Presumed Full Code Date Activated Date Inactivated Comments 05/02/2023 11:46 AM 05/09/2023 5:32 PM * Full Code Date Activated Date Inactivated Comments 05/02/2023 5:49 AM 05/02/2023 11:46 AM Healthcare Agents on File Name Relationship Healthcare Agent Relationshi p Communication Rena Rojas Daughter Health Care Agent Care Teams Marketing Finance Manager Relationship Specialty Start Date End Date Andra Chaudhari NP [address] [place] [id number] PCP - General Nurse Practitioner Family 05/14/24
== END 2024-10-30 15:06 | disposition home or self-care (01) ==
LOC: HO.HMCH 13:18
PROVIDERS: PCP Internal Medicine; Visit Provider Internal Medicine
DX: Z00.00 Encounter for general adult medical examination without abnormal findings (principal); E11.69 Type 2 diabetes mellitus with other specified complication; C80.1 Malignant (primary) neoplasm, unspecified; L98.499 Non-pressure chronic ulcer of skin of other sites with unspecified severity; E66.9 Obesity, unspecified; Z68.34 Body mass index [BMI] 34.0-34.9, adult; I10 Essential (primary) hypertension; E78.2 Mixed hyperlipidemia; M17.0 Bilateral primary osteoarthritis of knee; C44.311 Basal cell carcinoma of skin of nose

== ENCOUNTER → 2024-10-30 13:17 | Outpatient (BNVA) | payer MEDICARE, SELFPAY | PROVIDERS: PCP Internal Medicine; Visit Provider Internal Medicine | DX: Z00.00 Encounter for general adult medical examination without abnormal findings (principal); E78.2 Mixed hyperlipidemia; I10 Essential (primary) hypertension; E11.9 Type 2 diabetes mellitus without complications; M17.0 Bilateral primary osteoarthritis of knee; C80.1 Malignant (primary) neoplasm, unspecified; L98.499 Non-pressure chronic ulcer of skin of other sites with unspecified severity; C44.311 Basal cell carcinoma of skin of nose; E66.9 Obesity, unspecified; Z68.34 Body mass index [BMI] 34.0-34.9, adult; Z71.3 Dietary counseling and surveillance | CPT/HCPCS: 96127; 99397 ==

== ENCOUNTER 2024-11-18 11:38 | Outpatient (AMB) | payer MEDICARE, MEDICAID, SELFPAY ==
[2024-11-18 12:04] VITALS: BP 126/64; PULSE 80; TEMP 36.7; O2SAT 98; BMI 34.7
--- NOTE | 2024-11-18 12:04 | AM.OFFWIN_ITS ---
Intake Vital Signs 11/18/24 12:04 Height 5 ft 9 in Weight 235 lb BMI 34.7 BP 126/64 Blood Pressure Location Lt brachial Position Sitting Pulse 80 Pulse Source Pulse Oximeter Temp 98.0 F Temp Source Oral Pulse Oximetry (%) 98 Oxygen Delivery Method Room Air Intake Visit Reasons: EP-rt wrist ache & swollen from a fall Intake Note: pt presents with right wrist pain, stiffness and swelling after falling last night Patient Tobacco Use Status: Former Tobacco user Allergies No Known Allergies Allergy (Verified 11/18/24 12:06) Do you need a note to return to daycare/school/sports/work: No HPI HPI Comments History of Present Illness Details History of Present Illness - The patient is a 69-year-old male pres enting with right wrist pain following a fall. - The fall occurred when the patient att empted to kill a spider on the ceiling by standing on a bed with wheels, resulting in a fall. - The patient landed on his wrist, exper iencing immediate pain and limited movement. - The patient also reported a sprained a nkle and back pain from the fall. - The patient is left-handed. - He has some numbness, tingling into th e hand. - He denies elbow pain, upper arm pain, or shoulder pain. Physical Exam General: Cooperative, healthy appearing, comfortable, no acute distress and well developed Respiratory: Normal respiratory effort and able to speak in complete sentences. Clear to auscultation bilaterally Cardiovascular: Regular rate and rhythm. Normal S1 and S2 Skin: No rashes or lesions noted Neuro: Sensation intact Extremities: Decrease ROM of the right wrist due to pain. No deformity noted. Normal inspection. TTP of the ulnar styloid and radial styloid. No snuffbox tenderness noted. FROM of the elbow and digits on the hand. Cap refill is less than 3 seconds, pulses are 2+ on the right. Patient was informed and verbally consented to the use of an ambient scribe for clinic note documentation during this visit. [facility] Medical History (Updated 11/02/24 @ 11:58 by Marquez Jones MD) Diabetes mellitus Mixed hyperlipidemia Obesity (BMI 30-39.9) Insomnia Osteoarthritis Benign essential hypertension Surgical History History of skin graft Hx of foot surgery History of foot surgery (05/03/22) History of foot surgery History of inguinal hernia repair Family History Father CAD (coronary artery disease) Acute CVA (cerebrovascular accident) Hypertension Diabetes Stroke Mother Hypertension Acute CVA (cerebrovascular accident) Intestinal cancer Sister Hypertension Von Willebrand disease Brother Hypertension Social History Housing: House Are you a primary director of managed care to a significant other at home: No Do you presently have visiting nurse or other home services: No Alcohol intake: current Alcohol intake frequency: holidays/special occasions only Alcohol type: beer Comment: tolerable Patient Tobacco Use Status: Former Tobacco user Tobacco use type: Cigarette e-Cigarette/Vaping Use: Never Used Second Hand Smoke Exposure: Yes service: Yes ([employer]) Current occupational status: employed Current occupation: Unloading department Cognitive needs: No Hearing needs: No Vision needs: No Review of Systems Const All systems reviewed & are unremarkable except as noted in HPI and below Physical Exam Vital Signs: Last Vital Signs Temp 98.0 F 11/18/24 12:04 Pulse 80 11/18/24 12:04 BP 126/64 11/18/24 12:04 Pulse Ox 98 11/18/24 12:04 Oxygen Delivery Method Room Air 11/18/24 12:04 BMI result Body Mass Index 34.7 Results Reviewed Results Reviewed: reviewed the x-ray in the office today IMPRESSION: Scapholunate interval widening is consistent with a scapholunate ligament tear. There is no DISI deformity. There is moderate degenerative change involving the STT joint and mild degenerative change in the first CMC joint. Ulnar plus variance. Correlate for signs symptoms of ulnar lunate impaction. Assessment & Plan Assessment & Plan (1) Fall: Code(s): W19.XXXA - Unspecified fall, initial encounter Qualifiers: Encounter type: initial encounter Qualified Code(s): W19.XXXA - Unspecified fall, initial encounter (2) Strain of wrist, right: Code(s): S66.911A - Strain of unspecified muscle, fascia and tendon at wrist and hand level, right hand, initial encounter Qualifiers: Encounter type: initial encounter Qualified Code(s): S66.911A - Strain of unspecified muscle, fascia and tendon at wrist and hand level, right hand, initial encounter Plan Most likely strain vs contusion vs fracture x-ray in the office today plan - rest, ice, elevation of the wrist - wear splint - tylenol or motrin as needed for pain - will refer to ortho - follow up with PCP Orders: Orders XR wrist RT min 3V Today S63.501A - Unspecified sprain of right wrist, initial encounter Referrals Orthopedics Referral M25.531 - Pain in right wrist Coding Level of Care Code Est Pt Level 4 (97499) Diagnoses Fall, initial encounter W19.XXXA Encounter type: initial encounter Strain of right wrist, initial encounter S66.911A Encounter type: initial encounter
--- OUTSIDE RECORDS SUMMARY | 2024-11-18 13:11 | XMS_ITS | Clinical Summary ---
Author Organization [facility] Address [address] [place] [address] Care Team Providers Care Equipment Engineering Technician Name Role Phone Andra Chaudhari NP Primary Care Provider [phone] Allergies Active Allergy Reactions Criticality Noted Date Comments Oxycodone Other (see comments) 04/20/2023 Wishes to avoid all narcotics Medications gabapentin (NEURONTIN) 300 mg capsule Take 600 mg by mouth 2 times a day. Pt states taking 300mg daily tlp intelligence clerk 3 Active metFORMIN (GLUCOPHAGE) 1,000 mg tablet Take 1,000 mg by mouth. 3 Active amLODIPine (NORVASC) 10 mg tablet Take 10 mg by mouth. 3 Active metoprolol succinate XL (TOPROL XL) 100 mg tablet SMARTSI Tablet(s) By Mouth Daily 3 Active lisinopriL (PRINIVIL,ZEST RIL) 40 mg tablet Take 40 mg by mouth. 3 Active acetaminophen/ diphenhydramin e (TYLENOL PM EXTRA STRENGTH ORAL) Take 2 tablets by mouth at bed time. Active chlorthalidone (HYGROTON) 25 mg tablet Take 25 mg by mouth. 4 Active atorvastatin (LIPITOR) 10 mg tablet SMARTSI Tablet(s) By Mouth Every Night 5 Active ibuprofen (MOTRIN) 800 mg tablet SMARTSI Tablet(s) By Mouth 3 Times Daily PRN 3 11/12/19 25 Discontinued (Therapy Completed or No Longer Needed) OneTouch Delica Plus Lancet lancet 33 gauge USE DIRECTED ONCE A DAY 4 11/12/19 25 Discontinued (Therapy Completed or No Longer Needed) OneTouch Verio test strips USE DIRECTED ONCE A DAY 4 11/12/19 25 Discontinued (Therapy Completed or No Longer Needed) Active Problems Problem Noted Date Diagnosed Date H/O skin graft 06/19/2023 Surgical wound present 05/23/2023 Squamous cell carcinoma of left foot 03/28/2023 Inguinal adenopathy 03/28/2023 Encounters Date Type Department Care Team Description 11/12/2024 Orders Only [address] [address] Deportation Examiner: Meg Holloway MD Callus of heel (Primary Dx) 11/11/2024 10:30 AM EDT Clinical Support [address] [address] Deportation Examiner: Sanjuana Johnson LPN Squamous cell carcinoma of left foot (Primary Dx) 11/11/2024 10:00 AM EDT Office Visit [address] [address] Deportation Examiner: Meg Holloway MD Brome, Wynford V, PA Squamous cell carcinoma of left foot 11/11/[address] [address] Deportation Examiner: Heidi Robbins PA Procedure from Last 3 Months Immunizations Immunization Administration Dates Next Due Influenza, [...] Passive Smoke Exposure: Past Smokeless Tobacco: Never Alcohol Use Standard Drinks/Week Comments Yes 0 [...] Sign Reading Time Taken Comments Blood Pressure 126/76 11/11/2024 9:40 AM EDT Pulse 69 11/11/2024 9:40 AM EDT Temperature 36.6 C (97.9 F) 11/11/2024 9:40 AM EDT Respiratory Rate 18 11/11/2024 9:40 AM EDT Oxygen Saturation 93% 11/11/2024 9:40 AM EDT Inhaled Oxygen Concentration - - Weight 108 kg (238 lb) 11/11/2024 9:40 AM EDT Height 175.3 cm (5' 9 ) 05/14/2024 11:08 AM EST Body Mass Index 35.15 05/14/2024 11:08 AM EST Plan of Treatment Upcoming Encounters Date Type Department Care Team (Late st Contact Info) Description 05/15/2025 11:00 AM EST Office Visit [facility] [address] [place] [address] Deportation Examiner: Meg Holloway MD [address] [place] [address] Health Maintenance Due Date Last Done Comments Cologuard 1955 Colon Cancer Screening 1955 Colonoscopy 1955 FOBT / Fit Test 1955 Hepatitis C Screening 1955 Sigmoidoscopy 1955 Pneumococcal Vaccine: 50+ Years (1 of 1 - PCV) 2005 Zoster Vaccines (1 of 2) 2005 Abdominal Aortic Aneurysm (AAA) Screening 2020 Alcohol/Substance Use Screening 03/19/2024 04/09/2023 Depression Screening and Follow-Up 03/19/2024 Health Care Proxy Review 03/19/2024 Social Drivers of Health Annual Screening 03/19/2024 COVID-19 Vaccine (5 - 5-26 season) 2024 04/19/2022, 04/19/2022, 07/22/2020, Additional history exists Influenza Vaccine (#1) 2024 Diabetes Screening 06/13/2026 06/14/2023, 0 06/14/2023, 06/13/2023, Additional history exists RSV Vaccine (60+ years old and patients) (1 - 1-dose 75+ series) 2030 DTaP,Tdap,and Td Vaccines (3 - Td or Tdap) 06/13/2030 06/13/2020, 06/13/2010 Hepatitis B Vaccines Aged Out No long er eligible based on patient's age to complete this topic Medical Devices Implanted Type Area Door Attendant Device Identifier Shelf Expiration Date Model / Serial / Lot Dressing Wound Matrix Bilayer Collagen And Silicone [id number] - [id number] Implanted:Qty: 1 on 05/02/2023 by Arnaud Rosales MD at [facility] Implant Left: Heel [employer] 12/16/2024 [id number] / / [id number] Procedures * Due to [place] [employer] Thought law, this organization might not be sharing negative HIV tests. Procedure Name Priority Date/Time Associated Diagnosis Comments DERM TISSUE EXAM Routine 11/11/2024 11:2 6 AM EDT Squamous cell carcinoma of left foot POCT GLUCOSE Routine 06/14/2023 7:42 AM EDT from Last 3 Months or Most Recently Relevant to Health Maintenance Results * Due to [place] [employer] Thought law, this organization might not be sharing negative HIV tests. * Derm Tissue Exam (11/11/2024 11:26 AM EDT) Final Diagnosis Skin, Left Foot, Punch Biopsy: - Compact hyperkeratosis with epidermal acanthosis and hypergranulosis, compatible with callus (see comment). Comment: Multiple levels were examined. No carcinoma was identified. This case was reviewed at the dermatopathology division consensus conference. [place] MANUAL 11/12/2024 12:13 PM EDT [facility] at 1213 EDT Clinical History h/o SCC [facility] MANUAL 11/12/2024 12:13 PM EDT [facility] Gross Description 1. Foot, Left Received in formalin, labeled the patient's name, IDRIS, and foot, left , is a webb, cylindrical skin punch (0.5 x 0.5 cm, excised to a maximum depth of 0.6 cm), which is inked blue, bisected, and entirely submitted in cassette 1A. [facility] MANUAL 11/12/2024 12:13 PM EDT [facility] Gross Description User Grossing complete by Letty Land on 11/11/2024 3:25 PM [facility] MANUAL 11/12/2024 12:13 PM EDT [facility] Embedded Images [facility] MANUAL 11/12/2024 12:13 PM EDT [facility] Resulting Agency Case was signed out at [facility], Department of Pathology, [employer] 3 CLIA [id number] [facility] MANUAL 11/12/2024 12:13 PM EDT [facility] Report Header Surgical Pathology Report Case: [id number] Authorizing Provider: RIANA Sotomayor Collected: 11/11/2024 1126 Ordering Location: [facility] Received: 11/11/[address] [place] [address] Pathologist: Jose Salguero MD Specimen: Foot, Left 11/12/2024 12:13 PM EDT [facility] Skin Structure of left foot / Unknown Non-Blood Collection / Unknown 11/11/2024 11:26 AM EDT 11/11/2024 1:42 PM EDT us RIANA Sotomayor LAB PATHOLOGY/CYTOLOGY ORDER RICKIE Final Result [facility] [address] [place] [address], * (ABNORMAL) POCT Glucose, interfaced (06/14/2023 7:42 AM EDT) [facility] Signature Glucose, POCT 138(H) 70 - 99 mg/dL 06/14/2023 7:44 AM EDT [facility] Comment: The recruiting operations consultant has not determined the efficacy of this test in Critically ill patients. [facility] defines Critically ill patients for the purpose of blood glucose monitoring (BGM) by glucometer, as patients meeting one or more of the following criteria: Hypotension- non-ICU patients (systolic blood pressure Less than 90 mmHg) due to shock Hypotension -ICU patients (Mean Arterial Pressure (MAP) <60 mmHg or systolic blood pressure < 90 mmHg due to shock Patients receiving Vasopressors (phenylephrine, vasopressin or norepinephrine) Anasarca In all locations, BGM test results should not be relied upon in the above situations, unless these results confirmed with lab-based glucose values. Blood 06/14/2023 7:42 AM EDT 06/14/2023 7:44 AM EDT us Arnaud Rosales MD LAB POCT ORDERABLES - DEVICE Final Result [facility] [address] [place] [address], from Last 3 Months or Most Recently Relevant to Health Maintenance Insurance [facility] HSNO/FREE CARE [facility] ADMIN [facility] Advance Directives Documents on File Type Date Recorded Patient Capacity Planning Analyst [facility] Health Care Proxy 05/02/2023 6:17 AM * [...] Rojas Daughter Health Care Agent Care Teams Equipment Engineering Technician Relationship Specialty Start Date End Date Andra Chaudhari NP [address] [place] [address] PCP - General Nurse Practitioner Family 11/11/24
--- OUTSIDE RECORDS SUMMARY | 2024-11-18 13:11 | XMS_ITS | Encounter Summary ---
Author Organization [facility] Address [address] [place] [address] Care Team Providers Care Gripper Attacher Name Role Phone Andra Chaudhari NP Primary Care Provider [phone] Encounter Details Date Type Department Care Team (Late st Contact Info) Description 03/29/2023 Orders Only [facility] Interventional Radiology [address] [place] [address] Imani Julian PA [address] [place] [address] Social History Tobacco Use Types Packs/Day Years Used Date Smoking Tobacco: Former Cigarettes Passive Smoke Exposure: Past Smokeless Tobacco: Never Sex and Gender Information Value Date Recorded Sex Assigned at Male 03/23/2023 7:09 AM EST Legal Sex Male 10:35 AM EST Gender Identity Male 03/23/2023 7:09 AM EST Sexual Orientation Straight 03/23/2023 7: 09 AM EST documented as of this encounter Plan of Treatment Upcoming Encounters Date Type Department Care Team (Late st Contact Info) Description 05/15/2025 11:00 AM EST Office Visit [facility] [address] [place] [address] Arcade Technician: Meg Holloway MD [address] [place] [address] documented as of this encounter Visit Diagnoses Not on filedocumented in this encounter Care Teams Gripper Attacher Relationship Specialty Start Date End Date Andra Chaudhari NP [address] [place] [address] PCP - General Nurse Practitioner Family 11/11/24 documented as of this encounter
--- OUTSIDE RECORDS SUMMARY | 2024-11-18 13:11 | XMS_ITS | Encounter Summary ---
Author Organization [facility] Address [address] [place] [address] Care Team Providers Care Stripper And Printer Name Role Phone Marguerite Chaudharia GIORGOI Primary Care Provider [phone] Encounter Details Date Type Department Care Team (Late st Contact Info) Description 03/26/2023 Lab Requisition [facility] Three Lab [address] [place] [id number] Meg García MD [address] [place] [address] Social History Tobacco Use Types Packs/Day Years Used Date Smoking Tobacco: Never Assessed Sex and Gender Information Value Date Recorded Sex Assigned at Male 03/23/2023 7:09 AM EST Legal Sex Male 10:35 AM EST Gender Identity Male 03/23/2023 7:09 AM EST Sexual Orientation Straight 03/23/2023 7: 09 AM EST documented as of this encounter Plan of Treatment Upcoming Encounters Date Type Department Care Team (Late st Contact Info) Description 05/15/2025 11:00 AM EST Office Visit [facility] [address] [place] [phone] Solar Photovoltaic Installer: Meg Holloway MD [address] [place] [address] documented as of this encounter Procedures * Due to [place] state law, this organization might not be sharing negative HIV tests. Procedure Name Priority Date/Time Associated Diagnosis Comments TISSUE EXAM Routine 03/26/2023 2:19 PM EST documented in this encounter Results * Due to [place] state law, this organization might not be sharing negative HIV tests. * Tissue Exam (03/26/2023 2:19 PM EST) Correction History This is a revised report as of 04/03/23 which supersedes the prior report from 03/30/2023. This report is being revised to correct typographical error. [facility] MANUAL 04/03/2023 9:09 AM EST [facility] Final Diagnosis Review of Outside Slides Received from [facility] Labeled [id number] Procedure Date 02/14/2023: Specimen #1 - Skin, Left Lateral Heel, Biopsy: - ATYPICAL SQUAMOUS PROLIFERATION WITH VERRUCOUS FEATURES, EXTENDING TO THE TISSUE EDGES AND BASE. Specimen #2 -Skin, Left Plantar Heel, Biopsy: - INVASIVE SQUAMOUS CELL CARCINOMA, WELL DIFFERENTIATED WITH VERRUCOUS FEATURES, EXTENDING TO THE TISSUE EDGES AND BASE. Comment: I fully concur with Dr. Baldwin's diagnosis. It is unclear how the specimens are related clinically. The first specimen may represent edge of a larger mass whereas second specimen represents a more advanced neoplastic process. Case is reviewed at the [facility] Dermatopathology consensus conference. [facility] MANUAL 04/03/2023 9:09 AM EST [facility] Amendment electronically signed by Jacobo Ojeda MD PhD on 04/03/2023 at 0909 EST at 1302 EST Clinical History not provided [facility] MANUAL 04/03/2023 9:09 AM EST [facility] Gross Consult Client Facility: [facility] Slide Identification: [id number] Number of Glass Slides Received: 2 Number of Blocks Received: 0 Client Pathologist: Attila Baldwin Accompanying Report Received: Yes [facility] MANUAL 04/03/2023 9:09 AM EST [facility] Embedded Images [facility] MANUAL 04/03/2023 9:09 AM EST [facility] Resulting Agency Case was signed out at [facility], Department of Pathology, Biotech 3 CLIA [id number] [facility] MANUAL 04/03/2023 9:09 AM EST [facility] Report Header Surgical Pathology Report Case: [id number] Authorizing Provider: Meg García MD Collected: 03/26/20239 Ordering Location: [facility] Received: 03/26/2023 1419 [facility] Pathologist: Jacobo Ojeda MD PhD Specimen: Skin, Left Lateral Heel, Biopsy: 04/03/2023 9:09 AM EST [facility] Tissue Specimen from skin / Unknown 03/26/2023 2:19 PM EST 03/26/2023 2:19 PM EST us Meg García MD LAB PATHOLOGY/CYTOLOGY ASHA LLOYD Edited Result - Final [facility] ANATOMIC PATHOLOG[facility] LABORATORY [address] [place] [address] documented in this encounter Visit Diagnoses Not on filedocumented in this encounter Care Teams Stripper And Printer Relationship Specialty Start Date End Date Andra Chaudhari NP [address] [place] [address] PCP - General Nurse Practitioner Family 11/11/24 documented as of this encounter
--- OUTSIDE RECORDS SUMMARY | 2024-11-18 13:11 | XMS_ITS | Encounter Summary ---
Author Organization [facility] Address [address] [place] [address] Care Team Providers Care Health And Social Care Teacher Name Role Phone Andra Chaudhari NP Primary Care Provider [phone] Encounter Details Date Type Department Care Team (Late st Contact Info) Description 04/10/2023 Orders Only [facility] Nuclear Medicine [address] [place] [address] Jhoana Terry MD [address] [place] [address] Social History Tobacco Use Types Packs/Day Years [...] Description 05/15/2025 11:00 AM EST Office Visit [facility] [address] [place] [address] Head Cook: Meg Holloway MD [address] [place] [phone] documented as of this encounter Visit Diagnoses Not on filedocumented in this encounter Care Teams Health And Social Care Teacher Relationship Specialty Start Date End Date Andra Chaudhari NP [address] [place] [address] PCP - General Nurse Practitioner Family 11/11/24 documented as of this encounter
== END 2024-11-18 13:42 | disposition home or self-care (01) ==
PROVIDERS: PCP Internal Medicine; Visit Provider Physician Assistant Medical
DX: S66.911A Strain of unspecified muscle, fascia and tendon at wrist and hand level, right hand, initial encounter (principal); W19.XXXA Unspecified fall, initial encounter

== ENCOUNTER 2024-11-18 11:38 | Outpatient (REF) | payer MEDICARE, MEDICAID, SELFPAY ==
--- NOTE | ~2024-11-18 | XR_ITS ---
EXAMINATION: XR WRIST, RIGHT CLINICAL INFORMATION: S63.501A - Unspecified sprain of right wrist, initial encounter COMPARISON: None available. TECHNIQUE: PA, lateral, and oblique views of the right wrist. FINDINGS: There is moderate narrowing of the scaphoid trapezium trapezoid joint with sclerosis and minimal degenerative cystic change. There is mild marginal osteophyte formation involving the first carpal metacarpal joint. The scapholunate interval measures 3.9 mm which is increased. Scapholunate angle measures 51 degrees which is within normal limits. There is 3.5 mm ulnar plus variance. XR/XR wrist RT min 3V IMPRESSION: Scapholunate interval widening is consistent with a scapholunate ligament tear. There is no DISI deformity. There is moderate degenerative change involving the STT joint and mild degenerative change in the first CMC joint. Ulnar plus variance. Correlate for signs symptoms of ulnar lunate impaction. Electronically signed by: Miguel Medeiros MD 11/18/2024 01:20 PM EDT
== END 2024-11-18 11:39 | disposition home or self-care (01) ==
LOC: HO.HMGCX 11:38
PROVIDERS: PCP Internal Medicine; Visit Provider Physician Assistant Medical
DX: S63.501A Unspecified sprain of right wrist, initial encounter (principal); W06.XXXA Fall from bed, initial encounter
CPT/HCPCS: 73110; 99212

== ENCOUNTER → 2024-11-18 13:03 | Outpatient (BNV) | payer MEDICARE, MEDICAID, SELFPAY | PROVIDERS: PCP Internal Medicine; Visit Provider Radiology Diagnostic Radiology | DX: S63.501A Unspecified sprain of right wrist, initial encounter (principal); W19.XXXA Unspecified fall, initial encounter | CPT/HCPCS: 73110 ==

== ENCOUNTER 2024-11-26 09:54 | Outpatient (AMB) | payer MEDICARE, MEDICAID, SELFPAY ==
[2024-11-26 10:04] VITALS: BMI 34.7
--- NOTE | 2024-11-26 10:04 | MHC.OFFVIS ---
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 Patient reports the fall occurred when he attempted to kill a spider on the ceiling by standing on a bed with wheels, resulting in a fall. The patient landed on his wrist, experiencing immediate pain and limited movement. He has some numbness, tingling into the hand. Seen at walkin clinic where xrays were done . He was advise to wear splint , rest and elevate. Currently patient states he has on and off pain. He continues to wear his wrist brace. He mention that he is having a tingling sensation right now mainly in his thumb. Hx of DM last A1C was 01/09/24 -5.6. 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 He was seen at a walk-in clinic, splinted, and told to elevate He complains of intermittent radial-sided wrist pain, worse with overuse, pinching, or gripping activities. He complains of some new numbness in his hand, primarily his thumb. He has stiffness in his fingers, as well as pain. he has been wearing his splint like a cast. He says he has a known skin condition, which causes dry skin to the palm of his hands . He says this has worsened on his right palm since wearing his splint. [facility] Medical History (Updated 11/26/24 @ 10:36 by Dylan Escoto) Diabetes mellitus Mixed hyperlipidemia Obesity (BMI 30-39.9) Insomnia Osteoarthritis Benign essential hypertension Surgical History History of skin graft Hx of foot surgery History of foot surgery (05/03/22) History of foot surgery History of inguinal hernia repair Family History Father CAD (coronary artery disease) Acute CVA (cerebrovascular accident) Hypertension Diabetes Stroke Mother Hypertension Acute CVA (cerebrovascular accident) Intestinal cancer Sister Hypertension Von Willebrand disease Brother Hypertension Social History (Updated 11/26/24 @ 10:23 by MONICA Hallman) Housing: House Are you a primary care information associate to a significant other at home: No Do you presently have visiting nurse or other home services: No Alcohol intake: current Alcohol intake frequency: holidays/special occasions only Alcohol type: beer Comment: tolerable Patient Tobacco Use Status: Former Tobacco user Tobacco use type: Cigarette e-Cigarette/Vaping Use: Never Used Second Hand Smoke Exposure: Yes service: Yes ([employer]) Current occupational status: retired Current occupation: retired / left hand Cognitive needs: No Hearing needs: No Vision needs: No Review of Systems Const All systems reviewed & are unremarkable except as noted in HPI and below Physical Exam Vital Signs: BMI result Body Mass Index 34.7 Const General: cooperative, healthy appearing and no acute distress Orientation/consciousness: patient oriented x3 HEENT Head: Yes normocephalic and Yes atraumatic Eyes EOM: EOMs intact bilaterally Resp Effort & Inspection: normal respiratory effort and able to speak in complete sentences Cardio Jugular venous distension: no JVD Skin General skin exam: turgor normal Rashes: no rashes Neuro General: patient oriented x3 Extrem Other: Evaluation of Right Upper Extremity: The patient is alert, oriented, and in no acute distress Neuro: Median, Ulnar, Radial nerves motor and sensory intact and sensation is normal to the tips of all digits Vascular: Cap refill brisk ROM: He can make a fist and extend all his digits, with some pain Skin: No lacerations or abrasions. He has significant dry skin to his palm, which he says is from a known skin condition General: No Ecchymosis. No Erythema or evidence of infection. Most tender over the 1st dorsal compartment Positive Rossana test on the right Negative Rossana test on the left No DRUJ tenderness DRUJ stable on exam No snuffbox or scaphoid tubercle tenderness Radiographs: 3 views of the right wrist & scaphoid were taken and viewed by me today in clinic. They show no fractures or dislocations. He has some basal joint & STT joint osteoarthritis. On the pencil turbo operator view there is no widening of the scapholunate interval. Psych Appearance: grossly normal Affect: normal affect Attitude: cooperative Assessment & Plan Assessment & Plan (1) De Quervain's tenosynovitis, right: Code(s): M65.4 - Radial styloid tenosynovitis [de Quervain] Category: Medical (2) Stiffness of right hand joint: Code(s): M25.641 - Stiffness of right hand, not elsewhere classified Category: Medical (3) Stiffness of right wrist joint: Code(s): M25.631 - Stiffness of right wrist, not elsewhere classified Category: Medical (4) Numbness of right hand: Code(s): R20.0 - Anesthesia of skin Category: Medical (5) Arthritis of carpometacarpal (CMC) joint of right thumb: Code(s): M18.11 - Unilateral primary osteoarthritis of first carpometacarpal joint, right hand Category: Medical (6) Osteoarthritis of right wrist: Comment: STT Code(s): M19.031 - Primary osteoarthritis, right wrist Category: Medical (7) DMII (diabetes mellitus, type 2): Code(s): E11.9 - Type 2 diabetes mellitus without complications Category: Medical Qualifiers: Diabetes mellitus complication detail: with polyneuropathy Diabetes mellitus complication status: with neurologic complications Diabetes mellitus restorative care technician insulin use: without restorative care technician use Qualified Code(s): E11.42 - Type 2 diabetes mellitus with diabetic polyneuropathy Plan Assessment & Plan: 1. Right De Quervain's tenosynovitis After a fall, DOI: 11/17/24 This is his chief complaint today 2. Right hand & wrist stiffness Secondary to splint 3. Right hand tingling Onset after fall 4. Right basal joint arthritis 5. Right STT joint arthritis These are not particularly symptomatic I educated him about these conditions I discussed operative and non-operative treatment options I recommend activity modification & bracing I discussed activity modification, they should limit or avoid any heavy or repetitive pinching or gripping activities He was fitted for a comfort cool brace to wear with daily activity He will discontinue his wrist splint at this time He should work on ROM exercises, and avoid any gripping or strengthening activities I discussed the use of assistive devices for daily activity He will follow up in 4-6 weeks to see how he is doing. Discuss possible steroid injection if his symptoms have not improved Also evaluate numbness & tingling for possible NCS order. Scribed for Sara Acharya MD by Dylan Escoto, medical assistant supervisor, on 11/26/24 at 10:30 AM, EST. Orders: Orders XR wrist RT w scaphoid Today M25.531 - Pain in right wrist Coding Level of Care Code New Pt Level 3 (25283) Diagnoses De Quervain's tenosynovitis, right M65.4 Stiffness of right hand joint M25.641 Stiffness of right wrist joint M25.631 Numbness of right hand R20.0 Arthritis of carpometacarpal (CMC) joint of right thumb M18.11 Osteoarthritis of right wrist M19.031 Type 2 diabetes mellitus with diabetic polyneuropathy, without long-term current use of insulin E11.42 Diabetes mellitus complication detail: with polyneuropathy Diabetes mellitus complication status: with neurologic complications Diabetes mellitus retirement insulin use: without restorative care technician use
--- OUTSIDE RECORDS SUMMARY | 2024-11-26 11:59 | XMS_ITS | Clinical Summary ---
Author Organization [facility] Address [address] [place] [address] Care Team Providers Care Furnace Roaster Name Role Phone Andra Chaudhari NP Primary Care Provider [phone] Allergies Active Allergy Reactions Criticality Noted Date Comments Oxycodone Other (see comments) 04/20/2023 Wishes to avoid all narcotics Medications gabapentin (NEURONTIN) 300 mg capsule Take 600 mg by mouth 2 times a day. Pt states taking 300mg daily tlp grain operations manager 3 Active metFORMIN (GLUCOPHAGE) 1,000 mg tablet [...] Department Care Team Description 11/12/2024 Orders Only [address] [address] [place]: Meg Holloway MD Callus of heel (Primary Dx) 11/11/2024 10:30 AM EDT Clinical Support [address] [address] [place]: Sanjuana Johnson LPN Squamous cell carcinoma of left foot (Primary Dx) 11/11/2024 10:00 AM EDT Office Visit [address] [address] [place]: Meg Holloway MD Brome, Wynford V, PA Squamous cell carcinoma of left foot 11/11/[address] [address] [place]: Hedii Robbins PA Procedure from Last 3 Months [...] Description 05/15/2025 11:00 AM EST Office Visit [facility] [address] [place] [address] [place]: Meg Holloway MD [address] [place] [address] Health Maintenance Due Date Last Done [...] this topic Medical Devices Implanted Type Area Nursery Nurse Device Identifier Shelf Expiration Date Model / Serial / Lot Dressing Wound Matrix Bilayer Collagen And Silicone [id number] - [id number] Implanted:Qty: 1 on 05/02/2023 by Arnaud Rosales MD at [facility] Implant Left: Heel [employer] 12/16/2024 [id number] / / [id number] Procedures * Due to [place] [employer] law, this organization might not be sharing negative HIV tests. Procedure Name Priority Date/Time Associated Diagnosis Comments DERM TISSUE EXAM Routine 11/11/2024 11:2 6 AM EDT Squamous cell carcinoma of left foot POCT GLUCOSE Routine 06/14/2023 7:42 AM EDT from Last 3 Months or Most Recently Relevant to Health Maintenance Results * Due to [place] [employer] law, this organization might not be sharing negative HIV tests. * Derm Tissue Exam (11/11/2024 11:26 AM EDT) Final Diagnosis Skin, Left Foot, Punch Biopsy: - Compact hyperkeratosis with epidermal acanthosis and hypergranulosis, compatible with callus (see comment). Comment: Multiple levels were examined. No carcinoma was identified. This case was reviewed at the dermatopathology division consensus conference. [facility] MANUAL 11/12/2024 12:13 PM EDT [facility] at 1213 EDT Clinical History h/o SCC [facility] MANUAL 11/12/2024 12:13 PM EDT [employer] [facility] Gross Description 1. Foot, Left Received in formalin, labeled the patient's name, IDRIS, and foot, left , is a webb, cylindrical skin punch (0.5 x 0.5 cm, excised to a maximum depth of 0.6 cm), which is inked blue, bisected, and entirely submitted in cassette 1A. [facility] MANUAL 11/12/2024 12:13 PM EDT [employer] [facility] Gross Description User Grossing complete by Letty Land on 11/11/2024 3:25 PM [facility] MANUAL 11/12/2024 12:13 PM EDT [employer] [facility] Embedded Images [facility] MANUAL 11/12/2024 12:13 PM EDT [employer] [facility] Resulting Agency Case was signed out at [facility], Department of Pathology, [employer] 3 CLIA [id number] [facility] MANUAL 11/12/2024 12:13 PM EDT [employer] [facility] Report Header Surgical Pathology Report Case: [id number] Authorizing Provider: RIANA Sotomayor Collected: 11/11/2024 1126 Ordering Location: [facility] Received: 11/11/[address] [place] [address] Pathologist: Jose Salguero MD Specimen: Foot, Left 11/12/2024 12:13 PM EDT [employer] [facility] Skin Structure of left foot / Unknown Non-Blood Collection / Unknown 11/11/2024 11:26 AM EDT 11/11/2024 1:42 PM EDT us RIANA Sotomayor LAB PATHOLOGY/CYTOLOGY ORDER RICKIE Final Result [employer] [facility] [address] [place] [address], * (ABNORMAL) POCT Glucose, interfaced (06/14/2023 7:42 AM EDT) [facility] Signature Glucose, POCT 138(H) 70 - 99 mg/dL 06/14/2023 7:44 AM EDT [facility] Comment: The manager database has not determined the efficacy of this test in Critically ill patients. [facility] defines Critically ill patients for the purpose [...] LAB POCT ORDERABLES - DEVICE Final Result [facility] [address] [place] [address], from Last 3 Months or Most Recently Relevant to Health Maintenance Insurance REPLACE [facility] HSNO/FREE CARE [facility] ADMIN [facility] Advance Directives Documents on File Type Date Recorded Patient Wet Process Miller Expl [facility] Health Care Proxy 05/02/2023 6:17 [...] Rojas Daughter Health Care Agent Care Teams Furnace Roaster Relationship Specialty Start Date End Date Andra Chaudhari NP [address] [place] [address] PCP - General Nurse Practitioner Family 11/11/24
--- OUTSIDE RECORDS SUMMARY | 2024-11-26 11:59 | XMS_ITS | Patient Health Record ---
Author Organization [facility] Address [address] [place] [address] Care Team Providers Care Roller Pneumatic Name Role Phone Robert MARTI, Marquez Primary Care Provider Margarita Saxena Unavailable [phone] Allergies No Known Allergies Reason For Referral [...] hrs Active Clotrimazole 1 % 1 application Elevators Inspector ally Twice a day; Duration: 28 day(s) [...] Problem Acquired hammer toe of right foot (9359097252067919 ) Hammer toe of right foot (M20.41) Active confirmed Problem Acquired hammer toe of left foot (4224821943573599 ) Hammer toe of left foot (M20.42) Active confirmed Problem Polyneuropathy due to type 2 diabetes mellitus (711759093) Type 2 diabetes mellitus with polyneuropathy (E11.42) Active confirmed Problem Ulcer of left lower leg (disorder) (7717621244053780 3) Non-pressure ulcer of left lower extremity [...] Date Coverage End Date [employer] Medicare [id number] [address] [address] [place] [address] [id number] Jaret Rojas Self - patient is the insured Medical (General) History Medical History History ICD Code Heart murmur osteoarthritis Hypertension Insomnia Diabetes Surgical History Surgery Date(Month/Year) Hernia Repair debridement skin ulcer, biopsy skin lesi on- left 12/01/2021
--- OUTSIDE RECORDS SUMMARY | 2024-11-26 11:59 | XMS_ITS | Encounter Summary ---
Author Organization [facility] Address [address] [place] [address] Care Team Providers Care Electrician Technician Name Role Phone Andra Chaudhari NP Primary Care Provider [phone] Encounter Details Date Type Department Care Team (Late st Contact Info) Description 03/29/2023 Orders Only [facility] Interventional Radiology [address] [place] [address] Imani Julian PA [address] [place] [address] Social History Tobacco Use Types Packs/Day Years [...] Description 05/15/2025 11:00 AM EST Office Visit [facility] [address] [place] [address] Hand Turner: Meg Holloway MD [address] [place] [address] documented as of this encounter Visit Diagnoses Not on filedocumented in this encounter Care Teams Electrician Technician Relationship Specialty Start Date End Date Andra Chaudhari NP [address] [place] [address] PCP - General Nurse Practitioner Family 11/11/24 documented as of this encounter
--- OUTSIDE RECORDS SUMMARY | 2024-11-26 11:59 | XMS_ITS | Encounter Summary ---
Author Organization [facility] Address [address] [place] [address] Care Team Providers Care Front Loader Residential Driver Name Role Phone Marguerite Chaudharia GIORGIO Primary Care Provider [phone] Encounter Details Date Type Department Care Team (Late st Contact Info) Description 03/26/2023 Lab Requisition [facility] Three Lab [address] [place] [address] Meg García MD [address] [place] [address] Social History Tobacco Use Types Packs/Day Years [...] Description 05/15/2025 11:00 AM EST Office Visit [facility] [address] [place] [address] Sales Representative [facility]: Meg Holloway MD [address] [place] [address] documented as of this encounter Procedures * Due to [place] state law, this organization might not be sharing negative HIV tests. Procedure Name Priority Date/Time Associated Diagnosis Comments TISSUE EXAM Routine 03/26/2023 2:19 PM EST documented in this encounter Results * Due to [place] state law, this organization might not be sharing negative HIV tests. * Tissue Exam (03/26/2023 2:19 PM EST) Correction History This is a revised report as of 04/03/23 which supersedes the prior report from 03/30/2023. This report is being revised to correct typographical error. [facility] MANUAL 04/03/2023 9:09 AM EST [employer] [facility] Final Diagnosis Review of Outside Slides Received from [facility] Labeled [id number] Procedure Date 02/14/2023: Specimen #1 - Skin, [...] neoplastic process. Case is reviewed at the [facility] Dermatopathology consensus conference. [facility] MANUAL 04/03/2023 9:09 AM EST Need [facility] Amendment electronically signed by Jacobo Ojeda MD PhD on 04/03/2023 at 0909 EST at 1302 EST Clinical History not provided [facility] MANUAL 04/03/2023 9:09 AM EST [employer] [facility] Gross Consult Client Facility: [facility] Slide Identification: [id number] Number of Glass Slides Received: 2 Number of Blocks Received: 0 Client Pathologist: Attila Baldwin Accompanying Report Received: Yes [facility] MANUAL 04/03/2023 9:09 AM EST [employer] [facility] Embedded Images [facility] MANUAL 04/03/2023 9:09 AM EST Need [facility] Resulting Agency Case was signed out at [facility], Department of Pathology, Biotech 3 CLIA [id number] [facility] MANUAL 04/03/2023 9:09 AM EST [facility] Report Header Surgical Pathology Report Case: [id number] Authorizing Provider: Meg García MD Collected: 03/26/20239 Ordering Location: [facility] Received: 03/26/2023 1419 [place] [employer] [facility] Lab Pathologist: Jacobo Ojeda MD PhD Specimen: Skin, Left Lateral Heel, Biopsy: 04/03/2023 9:[address] [facility] Tissue Specimen from skin / Unknown 03/26/2023 2:19 PM EST 03/26/2023 2:19 PM EST us Meg García MD LAB PATHOLOGY/CYTOLOGY ASHA LLOYD Edited Result - Final [facility] PATHOLOG[facility] LABORATORY [address] [place] [address] documented in this encounter Visit Diagnoses Not on filedocumented in this encounter Care Teams Front Loader Residential Driver Relationship Specialty Start Date End Date Andra Chaudhari NP [address] [place] [address] PCP - General Nurse Practitioner Family 11/11/24 documented as of this encounter
--- OUTSIDE RECORDS SUMMARY | 2024-11-26 11:59 | XMS_ITS | Encounter Summary ---
Author Organization [facility] Address [address] [place] [address] Care Team Providers Care Instructional Services Specialist Name Role Phone Andra Chaudhari NP Primary Care Provider [phone] Encounter Details Date Type Department Care Team (Late st Contact Info) Description 04/10/2023 Orders Only [facility] Nuclear Medicine [address] [place] [address] Jhoana Terry MD [address] [place] [address] Social History Tobacco Use Types Packs/Day Years [...] Description 05/15/2025 11:00 AM EST Office Visit [facility] [address] [place] [address] Sporting Goods Salesperson: Meg Holloway MD [address] [place] [phone] documented as of this encounter Visit Diagnoses Not on filedocumented in this encounter Care Teams Instructional Services Specialist Relationship Specialty Start Date End Date Andra Chaudhari NP [address] [place] [address] PCP - General Nurse Practitioner Family 11/11/24 documented as of this encounter
== END 2024-11-26 11:05 | disposition home or self-care (01) ==
LOC: HO.HOS 09:55
PROVIDERS: PCP Internal Medicine; Visit Provider Orthopaedic Surgery
DX: M65.4 Radial styloid tenosynovitis [de Quervain] (principal); M25.641 Stiffness of right hand, not elsewhere classified; M25.631 Stiffness of right wrist, not elsewhere classified; R20.0 Anesthesia of skin; M18.11 Unilateral primary osteoarthritis of first carpometacarpal joint, right hand; M19.031 Primary osteoarthritis, right wrist; E11.42 Type 2 diabetes mellitus with diabetic polyneuropathy
CPT/HCPCS: 99203

== ENCOUNTER → 2024-11-26 09:58 | Outpatient (BNV) | payer MEDICARE, MEDICAID, SELFPAY | PROVIDERS: Visit Provider Radiology Diagnostic Radiology | DX: M25.531 Pain in right wrist (principal) | CPT/HCPCS: 73110 ==

== ENCOUNTER 2024-11-26 10:27 | Outpatient (REF) | payer MEDICARE, MEDICAID, SELFPAY ==
--- NOTE | ~2024-11-26 | XR_ITS ---
EXAMINATION: XR WRIST NAVICULAR RIGHT HISTORY: M25.531 - Pain in right wrist COMPARISON: Comparison is made with the prior examination dated 11/18/2024. FINDINGS: Four views of the right wrist including scaphoid views of both wrists are submitted. Osseous mineralization is normal. There is no fracture or dislocation. Again seen is moderate degenerative change of the radial aspect of the carpus. Mild widening of the scapholunate space is unchanged. The soft tissues are unremarkable. XR/XR wrist RT w scaphoid IMPRESSION: Degenerative changes of the right wrist without significant change Electronically signed by: Marco A Wolff MD 11/26/2024 10:20 AM EDT
== END 2024-11-26 10:28 | disposition home or self-care (01) ==
LOC: HO.HOSX 10:27
PROVIDERS: Visit Provider Orthopaedic Surgery
DX: M65.4 Radial styloid tenosynovitis [de Quervain] (principal); M25.641 Stiffness of right hand, not elsewhere classified; M25.631 Stiffness of right wrist, not elsewhere classified; M18.11 Unilateral primary osteoarthritis of first carpometacarpal joint, right hand; M19.031 Primary osteoarthritis, right wrist; E11.42 Type 2 diabetes mellitus with diabetic polyneuropathy
CPT/HCPCS: 73110; 99202

== ENCOUNTER 2024-12-31 09:37 | Outpatient (AMB) | payer MEDICARE, MEDICAID, SELFPAY ==
--- NOTE | 2024-12-31 10:27 | MHC.OFFVIS ---
Vital Signs 12/31/24 10:31 Height 5 ft 9 in Weight 235 lb BMI 34.7 Handedness Left Intake Visit Reasons: OV- Right DeQervains Intake Note: Jaret is a 69 year old left hand dominant male presents today for his follow up visit for his right hand Dequervain. At his last visit on 11/26/[address] Acharya he was fitted for a comfort cool brace. He was advise on working on ROM exercises, and avoid any gripping or strengthening activities and follow up 4-6 weeks to discuss possible steroid injection if his symptoms have not improved. Also evaluate numbness & tingling for possible NCS order. Today patient states he has followed the advised instructions for the last five weeks. He reports an improvement in his symptoms since his last visit with us. He reports little numbness and tingling in the right hand. He says he may be able to hold off on any injections due to some improvement. Allergies No Known Allergies Allergy (Verified 12/31/24 10:32) HPI HPI OV- Right DeQervains: Details: Jaret is a 69 year old left hand dominant male presents today for his follow up visit for his right hand Dequervain. At his last visit on 11/26/[address] Acharya he was fitted for a comfort cool brace. He was advise on working on ROM exercises, and avoid any gripping or strengthening activities and follow up 4-6 weeks to discuss possible steroid injection if his symptoms have not improved. Also evaluate numbness & tingling for possible NCS order. Today patient states he has followed the advised instructions for the last five weeks. He reports an improvement in his symptoms since his last visit with us. He reports little numbness and tingling in the right hand. He says he may be able to hold off on any injections due to some improvement. [facility] Medical History (Updated 11/26/24 @ 10:36 by Dylan Escoto) Diabetes mellitus Mixed hyperlipidemia Obesity (BMI 30-39.9) Insomnia Osteoarthritis Benign essential hypertension Surgical History History of skin graft Hx of foot surgery History of foot surgery (05/03/22) History of foot surgery History of inguinal hernia repair Family History Father CAD (coronary artery disease) Acute CVA (cerebrovascular accident) Hypertension Diabetes Stroke Mother Hypertension Acute CVA (cerebrovascular accident) Intestinal cancer Sister Hypertension Von Willebrand disease Brother Hypertension Social History Housing: House Are you a primary rn patient care to a significant other at home: No Do you presently have visiting nurse or other home services: No Alcohol intake: current Alcohol intake frequency: holidays/special occasions only Alcohol type: beer Comment: tolerable Patient Tobacco Use Status: Former Tobacco user Tobacco use type: Cigarette e-Cigarette/Vaping Use: Never Used Second Hand Smoke Exposure: Yes service: Yes ([employer]) Current occupational status: retired Current occupation: retired / left hand Cognitive needs: No Hearing needs: No Vision needs: No Review of Systems Const All systems reviewed & are unremarkable except as noted in HPI and below Physical Exam Vital Signs: BMI result Body Mass Index 34.7 Extrem Other: Patient is alert, oriented, and in no acute distress. Neuro: Normal sensation of the tips of all digits of the right hand at this time Vascular: Cap refill brisk Pain: No tenderness to palpation of right 1st dorsal compartment Tightness, no pain with Rossana on the right No pain with range of motion of the right hand ROM: Patient is able to make a closed fist and extend all digits of the right hand fully and without difficulty Skin: No lacerations or abrasions. General: No ecchymosis, erythema, or evidence of infection. Psych: Appears grossly normal Affect normal Attitude cooperative Assessment & Plan Assessment & Plan (1) Numbness of right hand: Code(s): R20.0 - Anesthesia of skin Category: Medical (2) De Quervain's tenosynovitis, right: Code(s): M65.4 - Radial styloid tenosynovitis [de Quervain] Category: Medical Plan 1. De Quervain tenosynovitis, right 2. Numbness and tingling of right hand With very significant symptomatic improvement since last visit At this time, due to his significant improvement, I do not feel the patient requires a 2nd injection at this time At this time, due to significant improvement in numbness and tingling symptoms, only popping up approximately once to twice per week, I do not feel that an EMG and nerve conduction study is warranted at this time Patient should continue monitoring of symptoms, and if he notices stagnation of progress, or worsening of symptoms, he should call our office for re-evaluation and discussion of further treatment Patient understands this and is amenable to this plan Follow-up as needed Coding Level of Care Code Est Pt Level 3 (78953) Diagnoses Numbness of right hand R20.0 De Quervain's tenosynovitis, right M65.4
[2024-12-31 10:31] VITALS: BMI 34.7
--- OUTSIDE RECORDS SUMMARY | 2024-12-31 11:00 | XMS_ITS | Clinical Summary ---
Author Organization [facility] Address [address] [place] [address] Care Team Providers Care Mechanical Laboratory Technician Name Role Phone Andra Chaudhari NP Primary Care Provider [phone] Allergies Active Allergy Reactions Criticality Noted Date Comments Oxycodone Other (see comments) 04/20/2023 Wishes to avoid all narcotics Medications gabapentin (NEURONTIN) 300 mg capsule Take 600 mg by mouth 2 times a day. Pt states taking 300mg daily tlp antisqueak worker 02/10/2023 Active metFORMIN (GLUCOPHAGE) 1,000 mg tablet Take 1,000 mg by mouth. 02/10/2023 Active amLODIPine (NORVASC) 10 mg tablet Take 10 mg by mouth. 02/10/2023 Active metoprolol succinate XL (TOPROL XL) 100 mg tablet SMARTSI Tablet(s) By Mouth Daily 11/27/2022 Active lisinopriL (PRINIVIL,ZESTR IL) 40 mg tablet Take 40 mg by mouth. 02/10/2023 Active acetaminophen/d iphenhydramine (TYLENOL PM EXTRA STRENGTH [...] Department Care Team Description 11/12/2024 Orders Only [address] [address] Environmental Associate: Meg Holloway MD Callus of heel (Primary Dx) 11/11/2024 10:30 AM EDT Clinical Support [address] [address] Environmental Associate: Sanjuana Johnson LPN Squamous cell carcinoma of left foot (Primary Dx) 11/11/2024 10:00 AM EDT Office Visit [address] [address] Environmental Associate: Meg Holloway MD Brome, Wynford V, PA Squamous cell carcinoma of left foot 11/11/[address] [address] Environmental Associate: Heidi Robbins PA Procedure from Last 3 [...] Description 05/15/2025 11:00 AM EST Office Visit [facility] [address] [place] [address] Environmental Associate: Meg Holloway MD [address] [place] [address] Health Maintenance Due Date Last Done [...] of Health Annual Screening 03/19/2024 COVID-19 Vaccine ( season) 2024 04/19/2022, 07/22/2020, 06/30/2020 Influenza Vaccine (#1) 2024 Diabetes Screening 06/13/2026 06/14/2023, 0 06/14/2023, 06/13/2023, Additional history exists RSV Vaccine (60+ years old and patients) (1 - 1-dose 75+ series) 2030 DTaP,Tdap,and Td Vaccines (3 - Td or Tdap) 06/13/2030 06/13/2020, 06/13/2010 Hepatitis B Vaccines Aged Out No long er eligible based on patient's age to complete this topic Medical Devices Implanted Type Area Paper Baling Machine Operator Device Identifier Shelf Expiration Date Model / Serial / Lot Dressing Wound Matrix Bilayer Collagen And Silicone [id number] - [id number] Implanted:Qty: 1 on 05/02/2023 by Arnaud Rosales MD at [facility] Implant Left: Heel [employer] 12/16/2024 [id number] / / [id number] Procedures * Due to [place] [employer] law, this organization might not be sharing negative HIV tests. Procedure Name Priority Date/Time Associated Diagnosis Comments DERM TISSUE EXAM Routine 11/11/2024 11:2 6 AM EDT Squamous cell carcinoma of left foot POCT GLUCOSE Routine 06/14/2023 7:42 AM EDT from Last 3 Months or Most Recently Relevant to Health Maintenance Results * Due to [place] [employer] law, this organization might not be sharing negative HIV tests. * Derm Tissue Exam (11/11/2024 11:26 AM EDT) Final Diagnosis Skin, Left Foot, Punch Biopsy: - Compact hyperkeratosis with epidermal acanthosis and hypergranulosis, compatible with callus (see comment). Comment: Multiple levels were examined. No carcinoma was identified. This case was reviewed at the dermatopathology division consensus conference. [facility] 11/12/2024 12:13 PM EDT [facility] at 1213 EDT Clinical History h/o SCC [facility] MAN[facility] 11/12/2024 12:13 PM EDT [facility] Gross Description 1. Foot, Left Received in formalin, labeled the patient's name, MRN, and foot, left , is a webb, cylindrical skin punch (0.5 x 0.5 cm, excised to a maximum depth of 0.6 cm), which is inked blue, bisected, and entirely submitted in cassette 1A. [facility] 11/12/2024 12:13 PM EDT [facility] Gross Description User Grossing complete by Letty Land on 11/11/2024 3:25 PM [facility] MANUAL 11/12/2024 12:13 PM EDT [facility] Embedded Images [facility] MANUAL 11/12/2024 12:13 PM EDT [facility] Resulting Agency Case was signed out at [facility], Department of Pathology, [facility] 3 CLIA [id number] [facility] MANUAL 11/12/2024 12:13 PM EDT [facility] Report Header Surgical Pathology Report Case: [id number] Authorizing Provider: RIANA Sotomayor Collected: 11/11/2024 1126 Ordering Location: [facility] Received: 11/11/2024 [facility] Pathologist: Jose Salguero MD Specimen: Foot, Left 11/12/2024 12:13 PM EDT [facility]OLOG[facility] LABOR[facility] Skin Structure of left foot / Unknown Non-Blood Collection / Unknown 11/11/2024 11:26 AM EDT 11/11/2024 1:42 PM EDT us RIANA Sotomayor LAB PATHOLOGY/CYTOLOGY ORDER RICKIE Final Result [facility] [address] [place] [address], * (ABNORMAL) POCT Glucose, interfaced (06/14/2023 7:42 AM EDT) Glucose, POCT 138(H) 70 - 99 mg/dL 06/14/2023 7:44 AM EDT [facility] Comment: The paint roller covers supervisor has not determined the efficacy of this test in Critically ill patients. [facility] defines Critically ill patients for the [...] LAB POCT ORDERABLES - DEVICE Final Result [facility], POC [address] [place] [address], from Last 3 Months or Most Recently Relevant to Health Maintenance Insurance [facility] HS/FREE CARE [facility] [place] [facility] Advance Directives Documents on File Type Date Recorded Patient Boom Boss Expl anation Health Care Proxy 05/02/2023 6:17 [...] Rojas Daughter Health Care Agent Care Teams Mechanical Laboratory Technician Relationship Specialty Start Date End Date Andra Chaudhari NP [address] [place] [phone] PCP - General Nurse Practitioner Family 11/11/24
--- OUTSIDE RECORDS SUMMARY | 2024-12-31 11:00 | XMS_ITS | Encounter Summary ---
Author Organization [facility] Address [address] [place] [address] Care Team Providers Care Feeder Driver Name Role Phone Marguerite Chaudharia GIORGIO Primary Care Provider [phone] Encounter Details Date Type Department Care Team (Late st Contact Info) Description 03/26/2023 Lab Requisition [facility] Three Lab [address] [place] [address] Meg García MD [address] [place] [address] Social History Tobacco Use Types Packs/Day Years [...] Description 05/15/2025 11:00 AM EST Office Visit [facility] [address] [place] [address] Educational Diagnostician: Meg Holloway MD [address] [place] [address] documented as of this encounter Procedures * Due to [place] state law, this organization might not be sharing negative HIV tests. Procedure Name Priority Date/Time Associated Diagnosis Comments TISSUE EXAM Routine 03/26/2023 2:19 PM EST documented in this encounter Results * Due to [place] state law, this organization might not be sharing negative HIV tests. * Tissue Exam (03/26/2023 2:19 PM EST) Correction History This is a revised report as of 04/03/23 which supersedes the prior report from 03/30/2023. This report is being revised to correct typographical error. [facility] MANUAL 04/03/2023 9:09 AM EST [facility] Final Diagnosis Review of Outside Slides Received from [facility] Labeled [id number] Procedure Date 02/14/2023: Specimen #1 - Skin, [...] neoplastic process. Case is reviewed at the [facility] Dermatopathology consensus conference. [facility] MANUAL 04/03/2023 9:09 AM EST [facility] Amendment electronically signed by Jacobo Ojeda MD PhD on 04/03/2023 at 0909 EST at 1302 EST Clinical History not provided [facility] MANUAL 04/03/2023 9:09 AM EST [facility] Gross Consult Client Facility: [facility] Slide Identification: [id number] Number of Glass Slides Received: 2 Number of Blocks Received: 0 Client Pathologist: Attila Baldwin Accompanying Report Received: Yes [facility] MANUAL 04/03/2023 9:09 AM EST [facility] Embedded Images [facility] MANUAL 04/03/2023 9:09 AM EST [facility] Resulting Agency Case was signed out at [facility], Department of Pathology, Biotech 3 CLIA [id number] [facility] MANUAL 04/03/2023 9:09 AM EST [facility] Report Header Surgical Pathology Report Case: [id number] Authorizing Provider: Meg García MD Collected: 03/26/20239 Ordering Location: [facility] Received: 03/26/2023 1419 [facility] Pathologist: Jacobo Ojeda MD PhD Specimen: Skin, Left Lateral Heel, Biopsy: 04/03/2023 9:09 AM EST [facility] Tissue Specimen from skin / Unknown 03/26/2023 2:19 PM EST 03/26/2023 2:19 PM EST us Meg García MD LAB PATHOLOGY/CYTOLOGY ASHA LLOYD Edited Result - Final [facility] [address] [place] [address] documented in this encounter Visit Diagnoses Not on filedocumented in this encounter Care Teams Feeder Driver Relationship Specialty Start Date End Date Andra Chaudhari NP [address] [place] [address] PCP - General Nurse Practitioner Family 11/11/24 documented as of this encounter
--- OUTSIDE RECORDS SUMMARY | 2024-12-31 11:00 | XMS_ITS | Patient Health Record ---
Author Organization [facility] Address [address] [place] [address] Care Team Providers Care Clothes Drier Assembler Name Role Phone Robert MARTI, Marquez Primary Care Provider Margarita Saxena Unavailable [phone] Allergies No Known Allergies Reason For Referral [...] hrs Active Clotrimazole 1 % 1 application Print Controller ally Twice a day; Duration: 28 day(s) [...] Problem Acquired hammer toe of right foot (4742635037837475 ) Hammer toe of right foot (M20.41) Active confirmed Problem Acquired hammer toe of left foot (3671242696507249 ) Hammer toe of left foot (M20.42) Active confirmed Problem Polyneuropathy due to type 2 diabetes mellitus (424577750) Type 2 diabetes mellitus with polyneuropathy (E11.42) Active confirmed Problem Ulcer of left lower leg (disorder) (8912710718876785 3) Non-pressure ulcer of left lower extremity [...] Date Coverage End Date [employer] Medicare [id number] [address] [address] [place] [address] [id number] Jaret Rojas Self - patient is the insured Medical (General) History Medical History History ICD Code Heart murmur osteoarthritis Hypertension Insomnia Diabetes Surgical History Surgery Date(Month/Year) Hernia Repair debridement skin ulcer, biopsy skin lesi on- left 12/01/2021
--- OUTSIDE RECORDS SUMMARY | 2024-12-31 11:00 | XMS_ITS | Encounter Summary ---
Author Organization [facility] Address [address] [place] [address] Care Team Providers Care Nuclear Supervising Operator Name Role Phone Andra Chaudhari NP Primary Care Provider [phone] Encounter Details Date Type Department Care Team (Late st Contact Info) Description 03/29/2023 Orders Only [facility] Interventional Radiology [address] [place] [address] Imani Julian PA [address] [place] [address] Social History Tobacco Use Types Packs/Day Years [...] Description 05/15/2025 11:00 AM EST Office Visit [facility] [address] [place] [address] Rice Dryer Mechanic: Meg Holloway MD [address] [place] [address] documented as of this encounter Visit Diagnoses Not on filedocumented in this encounter Care Teams Nuclear Supervising Operator Relationship Specialty Start Date End Date Andra Chaudhari NP [address] [place] [address] PCP - General Nurse Practitioner Family 11/11/24 documented as of this encounter
--- OUTSIDE RECORDS SUMMARY | 2024-12-31 11:00 | XMS_ITS | Encounter Summary ---
Author Organization [facility] Address [address] [place] [address] Care Team Providers Care Upward Bound Director Name Role Phone Andra Chaudhari NP Primary Care Provider [phone] Encounter Details Date Type Department Care Team (Late st Contact Info) Description 04/10/2023 Orders Only [facility] Nuclear Medicine [address] [place] [address] Jhoana Terry MD [address] [place] [address] Social History Tobacco Use Types Packs/Day Years [...] Description 05/15/2025 11:00 AM EST Office Visit [facility] [address] [place] [address] Molder Machine: Meg Holloway MD [address] [place] [phone] documented as of this encounter Visit Diagnoses Not on filedocumented in this encounter Care Teams Upward Bound Director Relationship Specialty Start Date End Date Andra Chaudhari NP [address] [place] [address] PCP - General Nurse Practitioner Family 11/11/24 documented as of this encounter
== END 2024-12-31 10:59 | disposition home or self-care (01) ==
PROVIDERS: PCP Internal Medicine
DX: R20.0 Anesthesia of skin (principal); M65.4 Radial styloid tenosynovitis [de Quervain]
CPT/HCPCS: 99213

== ENCOUNTER → 2024-12-31 09:37 | Outpatient (BNVA) | payer MEDICARE, MEDICAID, SELFPAY | PROVIDERS: PCP Internal Medicine; Visit Provider Orthopaedic Surgery | DX: M65.4 Radial styloid tenosynovitis [de Quervain] (principal); R20.0 Anesthesia of skin | CPT/HCPCS: 99212 ==

== ENCOUNTER 2025-03-03 12:14 | Outpatient (AMB) | payer MEDICARE, SELFPAY ==
--- OUTSIDE RECORDS SUMMARY | 2025-02-28 13:20 | XMS_ITS | Encounter Summary ---
Author Organization [facility]erg[facility] With [facility] Address [address] [place] [id number] Phone Care Team Providers Care Road Crew Member Name Role Phone Andra Chaudhari NP Primary Care Provider [phone] Reason for Visit * Reason Comments Foot Pain Pt presents for R fo ot pain, swelling x 3 days. Pt denies an injury occurring. Pt states the pain originated in R big to and spread to foot. Pt reports difficulty walking on it. * Consultation (Routine) - Authorized Specialty Diagnoses / Procedures Referred By Contac t Referred To Contact Urgent Care Diagnoses Right foot pain Procedures UC VISIT Andra Chaudhari NP [address] [place] [address] Phone: tel: fax: [facility] [address] [address] Phone: tel: fax: Referral ID Status Reason Start Date Expiration Date V isits Requested Visits Authorized [id number] Authorized 02/28/2025 02/28/2026 99 99 Encounter Details Date Type Department Care Team (Late st Contact Info) Description 02/28/2025 1:20 PM EST Office Visit [facility] [address] [address] Yakelin Chapman PA-C [address] [place] [address] [email or web address] Cellulitis of right lower extremity (Primary Dx) Social History Tobacco Use Types Packs/Day Years Used Date Smoking Tobacco: Former Cigarettes Smokeless Tobacco: Never Alcohol Use Standard Drinks/Week Comments Never 0 (1 standard drink = 0.6 oz pur e alcohol) Education Answer Date Recorded Are you interested in more education? Not on leo e 02/28/2025 Are you concerned about learning? Not on file 02/28/2025 No 02/28/2025 No 02/28/2025 Digital Access Answer Date Recorded No 02/28/2025 No 02/28/2025 Reliable internet access at home? Not on file 02/28/2025 Device with a working camera? Not on file Intimate Partner Violence Answer Date R ecorded Are you denied basic needs s uch as food, clothing, or medical care? No 02/28/2025 In the past 12 months have y ou been in a relationship with a person who hurts, threatens, or tries to control you? No 02/28/2025 Are you denied basic needs s uch as food, clothing, or medical care? No 02/28/2025 In the past 12 months have y ou been in a relationship with a person who hurts, threatens, or tries to control you? No 02/28/2025 Sex and Gender Information Value Date Recorded Sex Assigned at Not on file Legal Sex Male 12:53 PM EST Gender Identity Not on file Sexual Orientation Not on file documented as of this encounter Last Filed Vital Signs Vital Sign Reading Time Taken Comments Blood Pressure 114/59 02/28/2025 2:18 PM EST Pulse 60 02/28/2025 2:18 PM EST Temperature 36.5 C (97.7 F) 02/28/2025 2:18 PM EST Respiratory Rate 16 02/28/2025 2:18 PM EST Oxygen Saturation 100% 02/28/2025 2:18 PM EST Inhaled Oxygen Concentration - - Weight 107 kg (236 lb) 02/28/2025 2:18 PM EST Height 176.5 cm (5' 9.5 ) 02/28/2025 2:18 PM EST Body Mass Index 34.35 02/28/2025 2:18 PM EST documented in this encounter Progress Notes * Yakelin Chapman PA-C - 02/28/2025 1:20 PM EST Images from the original note were not included. Subjective: Patient ID: Alex Rojas is a 69 y.o. male. Alex, who has history of hypertension, neuropathy, and type 2 diabetes presents with 4-day history of right foot swelling, redness and extreme pain. He has difficulty walking. He denies fever chills or myalgia. He denies history of gout. On exam, vital signs stable. Right foot shows general soft tissue swelling, profuse erythema, exquisite tenderness. Markedly decreased range of motion. There is significant deep fissured callus at the calcaneal region. Left foot shows significant scarring of the calcaneal region due to previous surgery. Given extensive involvement of infection, concern for osteomyelitis, exquisite tenderness, patient is deferred to emergency department for further evaluation and treatment of possible osteomyelitis versus cellulitis. Review of Systems All other systems reviewed and are negative. Vitals: 02/28/25 1418 BP: 114/59 Pulse: 60 Resp: 16 Temp: 36.5 ??C (97.7 ??F) TempSrc: Temporal SpO2: 100% Weight: 107 kg (236 lb) Height: 176.5 cm (5' 9.5 ) Objective: Physical Exam Vitals and nursing note reviewed. Constitutional: Appearance: Normal appearance. Comments: Overweight HENT: Head: Normocephalic and atraumatic. Right Ear: External ear normal. Left Ear: External ear normal. Eyes: Extraocular Movements: Extraocular movements intact. Pulmonary: Effort: Pulmonary effort is normal. No respiratory distress. Musculoskeletal: General: Normal range of motion. Cervical back: Normal range of motion. Comments: Right foot shows general soft tissue swelling, profuse erythema, exquisite tenderness. Markedly decreased range of motion. There is significant deep fissured callus at the calcaneal region. Left foot shows significant scarring of the calcaneal region due to previous surgery. Skin: General: Skin is warm and dry. Neurological: General: No focal deficit present. Mental Status: He is alert and oriented to person, place, and time. Psychiatric: Mood and Affect: Mood normal. Behavior: Behavior normal. Thought Content: Thought content normal. Judgment: Judgment normal. No results found for this visit on 02/28/25. Procedure: Procedures Assessment/Plan: Diagnosis Plan 1. Cellulitis of right lower extremity Assessment and Plan: Alex, who has history of hypertension, neuropathy, and type 2 diabetes presents with 4-day history of right foot swelling, redness and extreme pain. He has difficulty walking. He denies fever chills or myalgia. He denies history of gout. On exam, vital signs stable. Right foot shows general soft tissue swelling, profuse erythema, exquisite tenderness. Markedly decreased range of motion. There is significant deep fissured callus at the calcaneal region. Left foot shows significant scarring of the calcaneal region due to previous surgery. Given extensive involvement of infection, concern for osteomyelitis, exquisite tenderness, patient is deferred to emergency department for further evaluation and treatment of possible osteomyelitis versus cellulitis. documented in this encounter Plan of Treatment Not on file documented as of this encounter Visit Diagnoses Diagnosis Cellulitis of right lower extremity- Primary documented in this encounter Care Teams Road Crew Member Relationship Specialty Start Date End Date Andra Chaudhari NP [facility] [place] [address] PCP - General Nurse Practitioner 02/28/25 documented as of this encounter Additional Source Comments The information contained in this document represents components of the legal health record. It is not the complete legal health record.[facility]
--- OUTSIDE RECORDS SUMMARY | 2025-02-28 15:16 | XMS_ITS | Encounter Summary ---
Author Organization [facility] Address [address] [place] [id number] Phone Care Team Providers Care Nursing Services Manager Name Role Phone Andra Chaudhari NP Primary Care Provider [phone] Reason for Visit * Reason Comments Foot pain * Auth/Cert (Routine) Specialty Diagnoses / Procedures Referred By Contac t Referred To Contact Referral ID Status Reason Start Date Expiration Date Visits Re quested Visits Authorized 1 1 Encounter Details Date Type Department Care Team (Late st Contact Info) Description 02/28/2025 3:16 PM EST - 02/28/2025 5:50 PM EST Emergency [facility] [address] [place] [address] Discharge Disposition: Home or Self Care Social History Tobacco Use Types Packs/Day Years [...] Sign Reading Time Taken Comments Blood Pressure 123/69 02/28/2025 3:10 PM EST Pulse 57 02/28/2025 3:10 PM EST Temperature 36.1 C (96.9 F) 02/28/2025 3:10 PM EST Respiratory Rate 16 02/28/2025 3:10 PM EST Oxygen Saturation 100% 02/28/2025 3:10 PM EST Inhaled Oxygen Concentration - - Weight 107 kg (236 lb) 02/28/2025 3:10 PM EST Height 175.3 cm (5' 9 ) 02/28/2025 3:10 PM EST Body Mass Index 34.85 02/28/2025 3:10 PM EST documented in this encounter Functional Status * Calculated C-SSRS Risk Score (Lifetime/Recent) Answer Date of Assessment Author No Risk Indicated 02/28/2025 3:12 PM EST Namrata Burks RN * [place] Suicide Severity Rating Scale (Screener/Recent Self-Report) Question Answer Date of Assessment Author 1. Wish to be (Past 1 Month) No 02/28/2025 3:12 PM EST Martha Grayson RN 2. Non-Specific Active Suicidal Thoughts (Past 1 Month) No 02/28/2025 3:12 PM EST Martha Grayson RN 6. Suicidal Behavior (Lifetime) No 02/28/2025 3:12 PM EST Martha Grayson RN documented as of this encounter Discharge Instructions * Discharge Instructions* Kandis Marie PA-C - 02/28/2025 5:17 PM EST You are seen in the emergency department today for redness and swelling to the right foot consistent with a cellulitis you will be treated with antibiotic take the full course even if you are feelingbetter. There is no signs of a bone infection labs in the ED were reassuring follow-up with primarycare doctor if symptoms persist. This may also be gout continue to monitor symptoms closely documented in this encounter Medications at Time of Discharge amLODIPine (NORVASC) 10 MG tablet Take 10 mg by mouth daily. cefuroxime (CEFTIN) 500 MG tablet Take 1 tablet (500 mg total) by mouth 2 (two) times a day for 7 days. 14 tablet 02/28/2025 chlorthalidone (HYGROTON) 25 MG tablet Take 25 mg by mouth daily. gabapentin (NEURONTIN) 300 MG capsule Take 300 mg by mouth 3 (three) times a day. lisinopril (PRINIVIL,ZESTRI L) 40 MG tablet Take 40 mg by mouth daily. Medication-Free Text Metoprolol oral metFORMIN (GLUCOPHAGE) 500 MG immediate release tablet Take 500 mg by mouth daily. metoprolol tartrate (LOPRESSOR) 100 MG tablet Take 100 mg by mouth 2 (two) times a day. documented as of this encounter ED Notes * Namrata Grayson RN - 02/28/2025 3:10 PM EST Patient presents to the ED with right foot pain that started 3 days ago. Swelling and redness notedto right great toe. He denies any injury or trauma. Unable to put shoes on due to the pain. Patientwheeled into triage via wheelchair unable to ambulate due to the pain. * Kandis Marie PA-C - 02/28/2025 3:07 PM EST Chief Complaint Chief Complaint Patient presents with Foot pain History of Present Illness The patient, Jaret Rojas,is a 69 y.o. male who presents for evaluation of Foot pain History of Present Illness The patient is a 69-year-old male who presents for evaluation of foot pain. He reports severe pain in his foot, which he first noticed today. The onset of the pain was sudden,starting in his big toe and progressively worsening. He has not experienced any injury to the foot.He also reports no fever and maintains normal eating, drinking, urination, and bowel movements. Thepain extends up to the arch area of his foot. He has a history of surgery on the opposite foot. He has no known allergies to antibiotics. Unless otherwise specified, I have reviewed and agree with the triage and nursing notes. ROS A ten point review of systems was negative except what was noted in the HPI. Review of Systems Past Medical History History reviewed. No pertinent past medical history. Past Surgical History No past surgical history on file. Home Medications Prior to Admission medications Medication Sig amLODIPine (NORVASC) 10 MG tablet 10 mg, Daily cefuroxime (CEFTIN) 500 MG tablet 500 mg, Oral, 2 times daily chlorthalidone (HYGROTON) 25 MG tablet 25 mg, Daily gabapentin (NEURONTIN) 300 MG capsule 300 mg, 3 times daily Patient taking differently: Take 300 mg by mouth daily. lisinopril (PRINIVIL,ZESTRIL) 40 MG tablet 40 mg, Daily Medication-Free Text Metoprolol oral metFORMIN (GLUCOPHAGE) 500 MG immediate release tablet 500 mg, Daily metoprolol tartrate (LOPRESSOR) 100 MG tablet 100 mg, 2 times daily Patient taking differently: Take 100 mg by mouth daily. Allergies No Known Allergies Social and Family History Social History Tobacco Use Smoking status: Former Types: Cigarettes Smokeless tobacco: Never Substance Use Topics Alcohol use: Never Social History Substance and Sexual Activity Drug Use Never No family history on file. Physical Exam Vital Signs: ED Triage Vitals [02/28/25 1510] Encounter Vitals Group BP 123/69 Girls Systolic BP Percentile Girls Diastolic BP Percentile Boys Systolic BP Percentile Boys Diastolic BP Percentile Heart Rate (!) 57 Respiratory Rate 16 Temperature 36.1 ??C (96.9 ??F) Temp Source Tympanic SpO2 100 % Weight 236 lb Height 5' 9 Head Circumference Peak Flow Pain Score Pain Loc Pain Education Exclude from Growth Chart Physical Exam Vitals and nursing note reviewed. Constitutional: Appearance: Normal appearance. HENT: Head: Normocephalic and atraumatic. Right Ear: External ear normal. Left Ear: External ear normal. Nose: Nose normal. Mouth/Throat: Mouth: Mucous membranes are moist. Pharynx: Oropharynx is clear. Eyes: Pupils: Pupils are equal, round, and reactive to light. Cardiovascular: Rate and Rhythm: Normal rate. Pulmonary: Effort: Pulmonary effort is normal. Musculoskeletal: General: Normal range of motion. Cervical back: Normal range of motion and neck supple. Comments: Redness noted to the right distal foot mostly involving the met tarsal regions. Good response good cap refill compartments soft calluses noted to the heel. Achilles intact no posterior calftenderness. No open wounds or lesions seen Skin: General: Skin is warm and dry. Neurological: General: No focal deficit present. Mental Status: He is alert and oriented to person, place, and time. Psychiatric: Mood and Affect: Mood normal. Behavior: Behavior normal. Laboratory Testing Results for orders placed or performed during the hospital encounter of 02/28/25 CBC and Differential Specimen: Blood Result Value Ref Range WBC 11.27 (H) 4.00 - 11.00 K/uL RBC 4.59 4.50 - 5.90 M/uL Hemoglobin 13.6 13.5 - 17.5 g/dL Hematocrit 40.9 (L) 41.0 - 53.0 % MCV 89.1 80.0 - 100.0 fL MCH 29.6 27.0 - 31.0 pg MCHC 33.3 32.0 - 36.0 g/dL MPV 10.6 8.4 - 12.0 fL RDW-CV 12.4 11.5 - 14.5 % PLT 210 150 - 450 K/uL Neutrophils 67.6 % Lymphocytes 21.3 % Monocytes 8.3 % Eosinophils 1.8 % Basophils 0.5 % Imm Grans 0.5 % NRBC 0.0 <=0.0 /100 WBCs Absolute Neutrophils 7.61 (H) 1.92 - 7.60 K/uL Absolute Lymphocytes 2.40 0.72 - 4.10 K/uL Absolute Monocytes 0.94 0.16 - 1.10 K/uL Absolute Eosinophils 0.20 0.00 - 0.50 K/uL Absolute Basophils 0.06 0.00 - 0.15 K/uL Absolute Imm Grans 0.06 0.00 - 0.09 K/uL Absolute NRBC 0.00 <=0.00 K cells/uL Absolute Neutrophils 7.61 (H) 1.92 - 7.60 K/uL Diff Type Auto Erythrocyte Sedimentation Rate (ESR) Specimen: Blood Result Value Ref Range ESR 31 (H) 0 - 20 mm/h C-Reactive Protein (CRP), High Sensitivity Specimen: Blood Result Value Ref Range CRP, High Sensitivity 4.2 (H) 1.0 - 3.0 mg/L Uric Acid Specimen: Blood Result Value Ref Range Uric Acid 11.5 (H) 3.4 - 7.0 mg/dL Basic Metabolic Panel (BMP) Specimen: Blood Result Value Ref Range Sodium 139 136 - 145 mmol/L Potassium 4.4 3.4 - 5.1 mmol/L Chloride 105 98 - 107 mmol/L CO2 23 20 - 31 mmol/L BUN 36 (H) 6 - 23 mg/dL Creatinine 1.60 (H) 0.60 - 1.30 mg/dL Glucose 99 70 - 99 mg/dL Calcium 9.3 8.5 - 10.5 mg/dL eGFR 46 (L) >59 mL/min/1.73m2 Anion Gap 11 3 - 17 mmol/L Radiology Testing XR Foot (Right) Final Result No acute abnormality in the foot. Assessment & Plan Initial Assessment: Significant erythema on exam consistent with cellulitis. No history of injury. No fevers. Borderline diabetes. Differential Diagnosis: - Cellulitis: Significant erythema. No history of injury. No fevers. Borderline diabetes. Plan: Antibiotics, Motrin, Tylenol. CBC for any leukocytosis, ESR/CRP, uric acid. - Osteomyelitis: Unlikely. No open wounds or stress fractures. Plan: Obtain x-ray. Risks of Complications, Morbidity, or Mortality: Risks: Necessity for prescription medication was discussed. ED Course as of 02/28/25 1723 Sat Feb 28, 2025 1715 No acute abnormality in the foot. [KS] 1717 X-ray reassuring labs with slight elevations inflammatory markers uric acid is also high. Could be gout. Will d/c home with antibiotics, colchicine and close outpatient follow-up [KS] ED Course User Index [KS] Kandis Marie PA-C Clinical Impressions as of 02/28/25 1723 Cellulitis of right lower extremity Clinical Impression Diagnosis Description Comment Final diagnosis Cellulitis of right lower extremity Cellulitis of right lower extremity -- Disposition: Home Kandis Marie PA-C 02/28/25 1719 Kandis Marie PA-C 02/28/25 1723 documented in this encounter Plan of Treatment Not on file documented as of this encounter Procedures Procedure Name Priority Date/Time Associated Diagnosis Comments C-REACTIVE PROTEIN (CRP), HIGH SENSITIVITY STAT 02/28/2025 4:35 PM EST CBC AND DIFFERENTIAL STAT 02/28/2025 4:35 PM EST SEDIMENTATION RATE (ESR) STAT 02/28/2025 4:35 PM EST CBC AND DIFFERENTIAL STAT 02/28/2025 4:35 PM EST URIC ACID STAT 02/28/2025 4:35 PM EST BASIC METABOLIC PANEL (BMP) STAT 02/28/2025 4:35 PM EST XR FOOT 3 OR MORE VIEWS (RIGHT) Routine 02/28/2025 4:07 PM EST documented in this encounter Results * (ABNORMAL) CBC and Differential (02/28/2025 4:35 PM EST) WBC 11.27(H) 4.00 - 11.00 K/uL 02/28/2025 4:39 PM EST [facility] RBC 4.59 4.50 - 5.90 M/uL 02/28/2025 4:39 PM EST [facility] Hemoglobin 13.6 13.5 - 17.5 g/dL 02/28/2025 4:39 PM [facility] Hematocrit 40.9(L) 41.0 - 53.0 % 02/28/2025 4:39 PM [facility] MCV 89.1 80.0 - 100.0 fL 02/28/2025 4:39 PM [facility] MCH 29.6 27.0 - 31.0 pg 02/28/2025 4:39 PM [facility] MCHC 33.3 32.0 - 36.0 g/dL 02/28/2025 4:39 PM [facility] MPV 10.6 8.4 - 12.0 fL 02/28/2025 4:39 PM [facility] RDW-CV 12.4 11.5 - 14.5 % 02/28/2025 4:39 PM [facility] PLT 210 150 - 450 K/uL 02/28/2025 4:39 PM [facility] Neutrophils 67.6 % 02/28/2025 4:39 PM [facility] Lymphocytes 21.3 % 02/28/2025 4:39 PM [facility] Monocytes 8.3 % 02/28/2025 4:39 PM [facility] Eosinophils 1.8 % 02/28/2025 4:39 PM [facility] Basophils 0.5 % 02/28/2025 4:39 PM [facility] Imm Grans 0.5 % 02/28/2025 4:39 PM [facility] NRBC 0.0 <=0.0 /100 WBCs 02/28/2025 4:39 PM [facility] Absolute Neutrophils 7.61(H) 1.92 - 7.60 K/uL 02/28/2025 4:39 PM [facility] Absolute Lymphocytes 2.40 0.72 - 4.10 K/uL 02/28/2025 4:39 PM [facility] Absolute Monocytes 0.94 0.16 - 1.10 K/uL 02/28/2025 4:39 PM [facility] Absolute Eosinophils 0.20 0.00 - 0.50 K/uL 02/28/2025 4:39 PM [facility] Absolute Basophils 0.06 0.00 - 0.15 K/uL 02/28/2025 4:39 PM [facility] Absolute Imm Grans 0.06 0.00 - 0.09 K/uL 02/28/2025 4:39 PM [facility] Absolute NRBC 0.00 <=0.00 K cells/uL 02/28/2025 4:39 PM [facility] Absolute Neutrophils 7.61(H) 1.92 - 7.60 K/uL 02/28/2025 4:39 PM [facility] Comment:Automated cell count . Manual ANC may differ if performed. Diff Type Auto 02/28/2025 4:39 PM [facility] Blood (Blood) Venipuncture / Unknown 02/28/2025 4:35 PM EST 02/28/2025 4:37 PM EST us Kandis MAYERS-Sandy LAB BLOOD BKR ORDERAB LES Final Result Performing Organization Address City/[facility]/ZIP Co de Phone Number [address] [address] * (ABNORMAL) Erythrocyte Sedimentation Rate (ESR) (02/28/2025 4:35 PM EST) Pathologist [facility] ESR 31(H) 0 - 20 mm/h 02/28/2025 4:46 PM [facility] Blood (Blood) Venipuncture / Unknown 02/28/2025 4:35 PM EST 02/28/2025 4:37 PM EST us Kandis MAYERS-Sandy LAB BLOOD BKR ORDERAB LES Final Result [address] [address] * (ABNORMAL) C-Reactive Protein (CRP), High Sensitivity (02/28/2025 4:35 PM EST) Pathologist [facility] CRP, High Sensitivity 4.2(H) 1.0 - 3.0 mg/L 02/28/2025 5:16 PM [facility] Comment: Cardiovascular Risk: Low: <1.0 mg/L Average: 1.0-3.0 mg/L High: >3.0 mg/L Acute Inflammation: >10.0 mg/L Persistent elevations may represent non cardiovascular inflammation. Blood (Blood) Venipuncture / Unknown 02/28/2025 4:35 PM EST 02/28/2025 4:37 PM EST Kandis Marie PA-C LAB BLOOD BKR ORDERAB LES Final Result Performing Organization Address City/[facility]/ZIP Co de Phone Number [address] [address] * (ABNORMAL) Uric Acid (02/28/2025 4:35 PM EST) Uric Acid 11.5(H) 3.4 - 7.0 mg/dL 02/28/2025 5:16 PM EST [facility] Blood (Blood) Venipuncture / Unknown 02/28/2025 4:35 PM EST 02/28/2025 4:37 PM EST us Kandis Marie PA-C LAB BLOOD BKR ORDERAB LES Final Result Performing Organization Address [facility] Co de Phone Number [address] [address] * (ABNORMAL) Basic Metabolic Panel (BMP) (02/28/2025 4:35 PM EST) Sodium 139 136 - 145 mmol/L 02/28/2025 5:16 PM [facility] Potassium 4.4 3.4 - 5.1 mmol/L 02/28/2025 5:16 PM [facility] Chloride 105 98 - 107 mmol/L 02/28/2025 5:16 PM [facility] CO2 23 20 - 31 mmol/L 02/28/2025 5:16 PM [facility] BUN 36(H) 6 - 23 mg/dL 02/28/2025 5:16 PM [facility] Creatinine 1.60(H) 0.60 - 1.30 mg/dL 02/28/2025 5:16 PM EST [facility] Glucose 99 70 - 99 mg/dL 02/28/2025 5:16 PM EST [facility] Calcium 9.3 8.5 - 10.5 mg/dL 02/28/2025 5:16 PM EST [facility] eGFR 46(L) >59 mL/min/1.7 3m2 02/28/2025 5:16 PM EST [facility] Comment:Estimated glomerular filtration rate calculated using the CKD-EPI refit equation. Anion Gap 11 3 - 17 mmol/L 02/28/2025 5:16 PM EST [facility] Blood (Blood) Venipuncture / Unknown 02/28/2025 4:35 PM EST 02/28/2025 4:37 PM EST us Kandis Marie PA-C LAB BLOOD BKR ORDERAB LES Final Result Performing Organization Address City/State/[facility] Co de Phone Number [address] [address] * XR FOOT 3 OR MORE VIEWS (RIGHT) (02/28/2025 4:07 PM EST) Anatomical Region Laterality Modality Foot Right Computed Radiogr aphy 02/28/2025 5:09 PM EST Impressions 02/28/2025 5:12 PM EST No acute abnormality in the foot. Narrative 02/28/2025 5:12 PM EST XR FOOT 3 OR MORE VIEWS (RIGHT) Referring clinician's provided indication for this examination in Epic: Pain COMPARISON: None. FINDINGS: No fracture. Normal alignment. Mild to moderate narrowing of the first metatarsophalangeal joint with associated subchondral sclerosis. Scattered degenerative changes of the proximal and distal interphalangeal joint spaces. Plantar calcaneal and Achilles osteophytes. No soft tissue swelling. Procedure Note Sukh Swartz MD - 02/28/2025 XR FOOT 3 OR MORE VIEWS (RIGHT) Referring clinician's provided indication for this examination in Epic:Pain COMPARISON: None. FINDINGS: No fracture. Normal alignment. Mild to moderate narrowing of the firstmetatarsophalangeal joint with associated subchondral sclerosis. Scattereddegenerative changes of the proximal and distal interphalangeal jointspaces. Plantar calcaneal and Achilles osteophytes. No soft tissueswelling. IMPRESSION: No acute abnormality in the foot. Kandis Marie PA-C IMG XR LOWER EXTREMIT Y Final Result documented in this encounter Visit Diagnoses Diagnosis Cellulitis of right lower extremity- Primary documented in this encounter Administered Medications Inactive Administered Medications - up to 3 most recent administrations Medication Order MAR Action Action Date Dose Rate Site cefuroxime (CEFTIN) tablet 500 mg 500 mg, Oral, Once, On 02/28/25 at 1730, For 1 dose, Indication: Infection WITHOUT sepsis, Infection Source: Skin & Soft Tissue Infection Given 02/28/2025 5:42 PM EST 500 mg documented in this encounter Active and Recently Administered Medications Times are shown in EST. Scheduled Medication Order 02/26/2025 02/27/2025 02/28/2025 cefuroxime (CEFTIN) tablet 500 mg (COMPLETED) 500 mg, Oral, Once, On 02/28/25 at 1730, For 1 dose, Indication: Infection WITHOUT sepsis, Infection Source: Skin & Soft Tissue Infection 1742 (Given - Provid er: Leighann Velazquez RN) documented in this encounter Care Teams Nursing Services Manager Relationship Specialty Start Date End Date Andra Chaudhari NP [facility] [place] [address] PCP - General Nurse Practitioner 02/28/25 documented as of this encounter Additional Source Comments The information contained in this document represents components of the legal health record. It is not the complete legal health record.[facility]
--- NOTE | 2025-03-03 12:20 | A.OFFPC_ITS ---
Vital Signs 03/03/25 12:22 Height 5 ft 9 in Weight 234 lb 4 oz BMI 34.6 BP 120/62 Blood Pressure Location Lt brachial Position Sitting Pulse 100 Pulse Source Pulse Oximeter Temp 97.1 F Temp Source Temporal Artery Scan Pulse Oximetry (%) 94 Oxygen Delivery Method Room Air Intake Visit Reasons: 4mth f/u Intake Note: Patient is here to follow up on DM. Ladle Liner Required: No Major Sales Associate: Present Accompanied by: Spouse Allergies No Known Allergies Allergy (Verified 03/03/25 12:21) Tobacco use date assessed: 03/03/25 Fall risk assessment: No Falls in past year Last assessed Fall Risk: 03/03/25 Dental Screening Dental Screen Date: 10/30/24 [facility] Medical History (Updated 03/03/25 @ 13:14 by Marquez Jones MD) Diabetes mellitus Mixed hyperlipidemia Obesity (BMI 30-39.9) Insomnia Osteoarthritis Benign essential hypertension Surgical History History of skin graft Hx of foot surgery History of foot surgery (05/03/22) History of foot surgery History of inguinal hernia repair Family History Father CAD (coronary artery disease) Acute CVA (cerebrovascular accident) Hypertension Diabetes Stroke Mother Hypertension Acute CVA (cerebrovascular accident) Intestinal cancer Sister Hypertension Von Willebrand disease Brother Hypertension Social History Housing: House Are you a primary manager managed care to a significant other at home: No Do you presently have visiting nurse or other home services: No Alcohol intake: current Alcohol intake frequency: holidays/special occasions only Alcohol type: beer Comment: tolerable Patient Tobacco Use Status: Former Tobacco user Tobacco use type: Cigarette e-Cigarette/Vaping Use: Never Used Second Hand Smoke Exposure: Yes service: Yes ([employer]) Current occupational status: retired Current occupation: retired / left hand Cognitive needs: No Hearing needs: No Vision needs: Yes (Glasses) Questionnaire Thrive Questionnaire Date Thrive assessed: 10/28/24 I am a: Patient What is your living situation today?: I have a steady place to live Within the past 12 months, did the food you bought not last and you didn't have the money to get more?: I choose not to answer this question Within the past 12 months, did you worry whether your food would run out before you got money to buy more?: I choose not to answer this question Do you have trouble paying for medicines?: I choose not to answer this question Do you have trouble getting transportation to medical appointments?: I choose not to answer this question Do you have trouble paying your heating and electricity bill?: I choose not to answer this question Do you have trouble taking care of your child, family member or friend?: I choose not to answer this question Do you have trouble with day-to-day activities such as bathing, preparing meals, shopping, managing finances, etc.?: I choose not to answer this question Are you currently unemployed and looking for a job?: I choose not to answer this question Are you interested in more education?: I choose not to answer this question Please select the resources that you would like help with: None Currently or been in a relationship where the following occur: I choose not to answer THRIVE Score: 0 CHANO-7 AMB Questionnaire CHANO-7 Date CHANO - 7 assessed: 10/30/24 Source: Developed by Drs. Marco A Calderon, Peg Champion, Abundio Mo and colleagues, with an educational jed from [employer]. Physical exam (Primary Care) Vital Signs: Last Vital Signs Temp 97.1 F 03/03/25 12:22 Pulse 100 03/03/25 12:22 BP 120/62 03/03/25 12:22 Pulse Ox 94 03/03/25 12:22 Oxygen Delivery Method Room Air 03/03/25 12:22 BMI result Body Mass Index 34.6 Tobacco/Smoking Status: Tobacco use Status Tobacco use date assessed 03/03/25 03/03/25 12:31 Patient Tobacco Use Status Former Tobacco user 03/03/25 12:31 Tobacco use type Cigarette 03/03/25 12:31 e-Cigarette/Vaping Use Never Used 03/03/25 12:31 Thrive Assessment: Date of Thrive Assessment Date Thrive assessed 10/28/24 03/03/25 12:31 Currently or been in a relationship where the following occur: I choose not to answer Results AMB Hemoglobin A1c AMB Hemoglobin A1c 5.8 % Last Edit by RUCHI Valdez on 03/03/25 13:06 Coding Level of Care Code Est Pt Level 4 (48229) Diagnoses Acute gout involving toe of right foot, unspecified cause M10.9 Gout site: toe Gout etiology: unspecified cause Laterality: right Chronic heel ulcer, left, with unspecified severity L97.429 Non-pressure ulcer stage: unspecified non-pressure ulcer stage Benign essential hypertension I10 Mixed hyperlipidemia E78.2 Type 2 diabetes mellitus without complication, without long-term current use of insulin E11.9 Diabetes mellitus type: type 2 Diabetes mellitus assisted insulin use: without assisted use Diabetes mellitus complication status: without complication Primary osteoarthritis of both knees M17.0 Osteoarthritis location: knee Osteoarthritis type: primary Laterality: bilateral 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; 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 Basal cell carcinoma of nose C44.311 Obesity (BMI 30-39.9) E66.9 Assessment & Plan Assessment & Plan (1) Gout attack: Code(s): M10.9 - Gout, unspecified Category: Medical Qualifiers: Gout site: toe Gout etiology: unspecified cause Laterality: right Qualified Code(s): M10.9 - Gout, unspecified (2) Chronic ulcer of left heel: Code(s): L97.429 - Non-pressure chronic ulcer of left heel and midfoot with unspecified severity Category: Medical Qualifiers: Non-pressure ulcer stage: unspecified non-pressure ulcer stage Qualified Code(s): L97.429 - Non-pressure chronic ulcer of left heel and midfoot with unspecified severity (3) Benign essential hypertension: Code(s): I10 - Essential (primary) hypertension Category: Medical Plan: Reinforced low sodium diet - goal is systolic BP of at least 130 mm or less Continue Lisinopril 40 mg QD, Amlodipine 10 mg QD and Metoprolol ER 100 mg QD (4) Mixed hyperlipidemia: Code(s): E78.2 - Mixed hyperlipidemia Category: Medical Plan: Will send patient for some follow-up labs to recheck his fasting lipids TSERING as he has not had any follow-up labs done in a while now Reinforced low cholesterol diet Continue Atorvastatin 10 mg QD Will recheck his fasting lipids and labs in 4 months for follow up (5) Diabetes mellitus: Code(s): E11.9 - Type 2 diabetes mellitus without complications Category: Medical Qualifiers: Diabetes mellitus type: type 2 Diabetes mellitus keno terminal operator insulin use: without keno terminal operator use Diabetes mellitus complication status: without complication Qualified Code(s): E11.9 - Type 2 diabetes mellitus without complications Plan: His in-office HgbA1c today is at 5.8% HgbA1c was at 5.6% when last checked in December 2023; in-office HgbA1c was also normal at 5.4% backin June 2023 - goal is < 7.0% Reinforced diabetic diet Continue Metformin ER 1000 mg QD (6) Osteoarthritis: Code(s): M19.90 - Unspecified osteoarthritis, unspecified site Category: Medical Qualifiers: Osteoarthritis location: knee Osteoarthritis type: primary Laterality: bilateral Qualified Code(s): M17.0 - Bilateral primary osteoarthritis of knee Plan: Continue Gabapentin 300 mg Q AM, Ibuprofen 800 mg TID PRN only and Tramadol 50 mg PRN only for severe pain Follow up with orthopedics as scheduled (7) 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: Comment: on the left heel Code(s): C80.1 - Malignant (primary) neoplasm, unspecified; L98.499 - Non-pressure chronic ulcer of skin of other sites with unspecified severity Category: Medical Plan: Bx of chronic left heel wound/ulcer came back positive for well-differentiated squamous cell carcinoma with tumor extending to the base and peripheral margins of the sample tissue He eventually underwent surgical excision and resection of the involved structures/areas of the foot/heel involved in June 2023 at [facility] in [place] He was doing well since but states that his silvering applicator recently has some concerns again about the possible recurrence of carcinoma around his chronic ulcer on his left heel and is planning to do another biopsy Follow up with podiatry (Drs. Margarita Castellon or Jaret Dalton) as scheduled (8) Basal cell carcinoma of nose: Code(s): C44.311 - Basal cell carcinoma of skin of nose Category: Medical Plan: S/P Mohs surgery with [facility] earlier this year (2023) He was reportedly advised/reassured that his surgical margins were all clear Follow up with dermatology as scheduled (9) Obesity (BMI 30-39.9): Code(s): E66.9 - Obesity, unspecified Category: Medical Plan: Reinforced diet/exercise as tolerated/lose weight Plan Follow up in 4 months Orders: Orders AMB Hemoglobin A1c Today E11.42 - Type 2 diabetes mellitus with diabetic polyneuropathy Uric Acid 4 Months M10.9 - Gout, unspecified Lipid Panel 4 Months E78.00 - Pure hypercholesterolemia, unspecified Microalbumin, Random (w Creat) 4 Months E11.9 - Type 2 diabetes mellitus without complications Hemoglobin A1c 4 Months E11.9 - Type 2 diabetes mellitus without complications TSH reflex Free T4 4 Months E78.00 - Pure hypercholesterolemia, unspecified UA CC w/rflx Micro + Cult 4 Months R30.0 - Dysuria Complete Blood Count Auto Diff 4 Months D64.9 - Anemia, unspecified Comprehensive [place]. Panel Fast 4 Months E78.00 - Pure hypercholesterolemia, unspecified Vitamin D 25-OH Total 4 Months E55.9 - Vitamin D deficiency, unspecified Referrals Podiatry Referral L97.429 - Non-pressure chronic ulcer of left heel and midfoot with unspecified severity Medications: New prednisone 40 mg (2 x 20 mg) PO DAILY 6 tabs 0RF 3 days indomethacin administer with food or milk 25 mg PO TID PRN 30 caps 0RF gout
[2025-03-03 12:22] VITALS: BP 120/62; PULSE 100; TEMP 36.2; O2SAT 94; BMI 34.6
--- OUTSIDE RECORDS SUMMARY | 2025-03-03 16:05 | XMS_ITS | Encounter Summary ---
Author Organization [facility] Address [address] [place] [address] Care Team Providers Care Tensile Tester Name Role Phone Andra Chaudhari NP Primary Care Provider [phone] Encounter Details Date Type Department Care Team (Late st Contact Info) Description 04/10/2023 Orders Only [facility] Nuclear Medicine [address] [place] [id number] Jhoana Terry MD [address] [place] [address] Social History Tobacco Use Types Packs/Day Years [...] Description 05/15/2025 11:00 AM EST Office Visit [facility] Breast Center [address] [place] [address] Tin Container Straightener: Meg Holloway MD [address] [place] [address] [phone] documented as of this encounter Visit Diagnoses Not on filedocumented in this encounter Care Teams Tensile Tester Relationship Specialty Start Date End Date Andra Chaudhari NP [address] [place] [address] PCP - General Nurse Practitioner Family 11/11/24 documented as of this encounter
--- OUTSIDE RECORDS SUMMARY | 2025-03-03 16:05 | XMS_ITS | Encounter Summary ---
Author Organization [facility] Address [address] [place] [address] Care Team Providers Care Product Builder Name Role Phone Marguerite Chaudharia GIORGIO Primary Care Provider [phone] Encounter Details Date Type Department Care Team (Late st Contact Info) Description 03/26/2023 Lab Requisition [facility] Three Lab [address] [place] [address] Meg García MD [address] [place] [address] Social History Tobacco Use Types Packs/Day Years [...] 05/15/2025 11:00 AM EST Office Visit [facility] Breast Center [address] [place] [address] Drilling Assistant: Meg Holloway MD [address] [place] [address] documented as of this encounter Procedures * Due to [place] state law, this organization might not be sharing negative HIV tests. Procedure Name Priority Date/Time Associated Diagnosis Comments TISSUE EXAM Routine 03/26/2023 2:19 PM EST documented in this encounter Results * Due to [place] state law, this organization might not be sharing negative HIV tests. * Tissue Exam (03/26/2023 2:19 PM EST) Correction History This is a revised report as of 04/03/23 which supersedes the prior report from 03/30/2023. This report is being revised to correct typographical error. [facility] MANUAL 04/03/2023 9:09 AM EST [email or web address] Final Diagnosis Review of Outside Slides Received from [facility] Labeled [id number] Procedure Date 02/14/2023: Specimen #1 - Skin, [...] neoplastic process. Case is reviewed at the [facility] Dermatopathology consensus conference. [facility] MANUAL 04/03/2023 9:09 AM EST [facility] Amendment electronically signed by Jacobo Ojeda MD PhD on 04/03/2023 at 0909 EST at 1302 EST Clinical History not provided [facility] MANUAL 04/03/2023 9:09 AM EST [facility] Gross Consult Client Facility: [facility] Slide Identification: [id number] Number of Glass Slides Received: 2 Number of Blocks Received: 0 Client Pathologist: Attila Baldwin Accompanying Report Received: Yes [facility] MANUAL 04/03/2023 9:09 AM EST [facility] Embedded Images [place] MANUAL 04/03/2023 9:09 AM EST [facility] Resulting Agency Case was signed out at [facility], Department of Pathology, [facility] 3 CLIA [id number] [facility] MANUAL 04/03/2023 9:09 AM EST [facility] Report Header Surgical Pathology Report Case: [id number] Authorizing Provider: Meg García MD Collected: 03/26/20239 Ordering Location: [facility] Received: 03/26/2023 1419 [place] [facility] Pathologist: Jacobo Ojeda MD PhD Specimen: Skin, Left Lateral Heel, Biopsy: 04/03/2023 9:09 AM EST [facility] Tissue Specimen from skin / Unknown 03/26/2023 2:19 PM EST 03/26/2023 2:19 PM EST us Meg García MD LAB PATHOLOGY/CYTOLOGY ASHA LLOYD Edited Result - Final [facility] AN[facility]OMIC PATHOLOGY LABORATORY [address] [place] [address] documented in this encounter Visit Diagnoses Not on filedocumented in this encounter Care Teams Product Builder Relationship Specialty Start Date End Date Andra Chaudhari NP [address] [place] [address] PCP - General Nurse Practitioner Family 11/11/24 documented as of this encounter
--- OUTSIDE RECORDS SUMMARY | 2025-03-03 16:05 | XMS_ITS | Encounter Summary ---
Author Organization [facility] Address [address] [place] [address] Care Team Providers Care Marine Safety Officer Name Role Phone Andra Chaudhari NP Primary Care Provider [phone] Encounter Details Date Type Department Care Team (Late st Contact Info) Description 03/29/[address] [facility] Interventional Radiology [address] [place] [address] Imani Julian PA [address] [place] [phone] Social History Tobacco Use Types Packs/Day Years [...] Description 05/15/2025 11:00 AM EST Office Visit [facility] Breast Center [address] [place] [address] Bottom Stainer: Meg Holloway MD [address] [place] [address] documented as of this encounter Visit Diagnoses Not on filedocumented in this encounter Care Teams Marine Safety Officer Relationship Specialty Start Date End Date Andra Chaudhari NP [address] [place] [address] PCP - General Nurse Practitioner Family 11/11/24 documented as of this encounter
--- OUTSIDE RECORDS SUMMARY | 2025-03-03 16:05 | XMS_ITS | Clinical Summary ---
Author Organization [facility] Address [address] [place] [address] Care Team Providers Care Railway Equipment Operator Name Role Phone Andra Chaudhari NP Primary Care Provider [phone] Allergies Active Allergy Reactions Criticality Noted Date Comments Oxycodone Other (see comments) 04/20/2023 Wishes to avoid all narcotics Medications gabapentin (NEURONTIN) 300 mg capsule Take 600 mg by mouth 2 times a day. Pt states taking 300mg daily tlp conduit mechanic 02/10/2023 Active metFORMIN (GLUCOPHAGE) 1,000 mg tablet [...] Years Used Date Smoking Tobacco: Former Cigarettes 0 Q uit: 1993 Passive Smoke Exposure: Past [...] Description 05/15/2025 11:00 AM EST Office Visit [facility] Breast Center [address] [place] [address] Chief Psychology: Meg Holloway MD [address] [place] [address] Health Maintenance Due Date Last Done [...] Annual Screening 03/19/2024 Influenza Vaccine (#1) 2024 COVID-19 Vaccine ( - season) 2024 04/19/2022, 07/22/2020, 06/30/2020 Fall Risk Screening 11/11/2025 11/11/2024 Diabetes Screening 06/13/2026 06/14/2023, 0 06/14/2023, 06/13/2023, Additional history exists RSV Vaccine (60+ years old and patients) (1 - 1-dose 75+ series) 2030 DTaP,Tdap,and Td Vaccines (3 - Td or Tdap) 06/13/2030 06/13/2020, 06/13/2010 Hepatitis B Vaccines Aged Out No long er eligible based on patient's age to complete this topic Medical Devices Implanted Type Area Academic Specialist Device Identifier Shelf Expiration Date Model / Serial / Lot Dressing Wound Matrix Bilayer Collagen And Silicone [id number] - [id number] Implanted:Qty: 1 on 05/02/2023 by Arnaud Rosales MD at [facility] Implant Left: Heel [employer] 12/16/2024 [id number] / / [id number] Procedures * Due to [place] BitGravity law, this organization might not be sharing negative HIV tests. Procedure Name Priority Date/Time Associated Diagnosis Comments POCT GLUCOSE Routine 06/14/2023 7:42 AM EDT from Last 3 Months or Most Recently Relevant to Health Maintenance Results * Due to [place] BitGravity law, this organization might not be sharing negative HIV tests. * (ABNORMAL) POCT Glucose, interfaced (06/14/2023 7:42 AM EDT) [facility] Glucose, POCT 138(H) 70 - 99 mg/dL 06/14/2023 7:44 AM EDT [facility] Comment: The bacteriologist food has not determined the efficacy of this test in Critically ill patients. [facility] defines Critically ill patients for the [...] LAB POCT ORDERABLES - DEVICE Final Result [facility] [address] [place] [address], from Last 3 Months or Most Recently Relevant to Health Maintenance Insurance [facility] REPLACE [facility] HSNO/FREE CARE [facility] ADMIN [facility] Advance Directives Documents on File Type Date Recorded Patient Elevator Adjuster Expl anation Health Care Proxy 05/02/2023 6:17 [...] Rojas Daughter Health Care Agent Care Teams Railway Equipment Operator Relationship Specialty Start Date End Date Andra Chaudhari NP [address] [place] [address] PCP - General Nurse Practitioner Family 11/11/24
--- OUTSIDE RECORDS SUMMARY | 2025-03-03 16:05 | XMS_ITS | Patient Health Record ---
Author Organization [facility] Address [address] [place] [address] Care Team Providers Care Dental Aide Name Role Phone Robert MARTI, Marquez Primary Care Provider Margarita Saxena Unavailable [phone] Allergies No Known Allergies Reason For Referral [...] hrs Active Clotrimazole 1 % 1 application Lithograph Operator ally Twice a day; Duration: 28 [...] Problem Acquired hammer toe of right foot (6867644322788164 ) Hammer toe of right foot (M20.41) Active confirmed Problem Acquired hammer toe of left foot (7041703999889930 ) Hammer toe of left foot (M20.42) Active confirmed Problem Polyneuropathy due to type 2 diabetes mellitus (278450150) Type 2 diabetes mellitus with polyneuropathy (E11.42) Active confirmed Problem Ulcer of left lower leg (disorder) (3245978828081620 3) Non-pressure ulcer of left lower extremity [...] Date Coverage End Date [employer] Medicare [id number] [address] [address] [place] [address] [id number] Jaret Rojas Self - patient is the insured Medical (General) History Medical History History ICD Code Heart murmur osteoarthritis Hypertension Insomnia Diabetes Surgical History Surgery Date(Month/Year) Hernia Repair debridement skin ulcer, biopsy skin lesi on- left 12/01/2021
--- OUTSIDE RECORDS SUMMARY | 2025-03-03 16:05 | XMS_ITS | Clinical Summary ---
Author Organization [facility] Address [address] [place] [address] Phone Care Team Providers Care Elevator Constructor Helper Name Role Phone Andra Chaudhari NP Primary Care Provider [phone] Allergies No known active allergies Medications Medication-Free Text Metoprolol oral Acti ve amLODIPine (NORVASC) 10 MG tablet Take 10 mg by mouth daily. Active lisinopril (PRINIVIL,ZESTR IL) 40 MG tablet Take 40 mg by mouth daily. Active gabapentin (NEURONTIN) 300 MG capsule Take 300 mg by mouth 3 (three) times a day. Active metFORMIN (GLUCOPHAGE) 500 MG immediate release tablet Take 500 mg by mouth daily. Active metoprolol tartrate (LOPRESSOR) 100 MG tablet Take 100 mg by mouth 2 (two) times a day. Active chlorthalidone (HYGROTON) 25 MG tablet Take 25 mg by mouth daily. Active cefuroxime (CEFTIN) 500 MG tablet Take 1 tablet (500 mg total) by mouth 2 (two) times a day for 7 days. 14 tablet 03/07/20 25 Active Active Problems No known active problems Encounters Date Type Department Care Team Description 02/28/2025 3:16 PM EST - 02/28/2025 5:50 PM EST Emergency [facility] [address] [place] [address] Discharge Disposition: Home or Self Care 02/28/2025 1:20 PM EST Office Visit [facility] [address] [address] Yakelin Chapman PA-C Cellulitis of right lower extremity (Primary Dx) from Last 3 Months Social History Tobacco Use Types Packs/Day Years [...] on file Sexual Orientation Not on file Last Filed Vital Signs Vital Sign Reading [...] Mass Index 34.85 02/28/2025 3:10 PM EST Plan of Treatment Health Maintenance Due Date Last Done Comments Adult Td,Tdap Booster 1955 LIPID PANEL 1955 DEPRESSION SCREENING 1967 SMOKING Hx and SMOKELESS TOB ACCO SCREENING 1968 HEPATITIS C SCREENING 1973 COLOGUARD 2000 COLONOSCOPY 2000 COLORECTAL CANCER SCREENING 2000 FIT TEST 2000 FOBT 2000 SIGMOIDOSCOPY 2000 VIRTUAL COLONOSCOPY 2000 PNEUMOCOCCAL VACCINES (50+ y ears) (1 of 1 - PCV) 2005 ZOSTER VACCINES (1 of 2) 2005 ABDOMINAL AORTIC ANEURYSM (A AA) SCREENING 2020 INFLUENZA VACCINE (#1) 2024 COVID-19 VACCINE (1 - 2024-2 6 season) 2024 CREATININE LEVEL 02/28/2026 02/28/2025 POTASSIUM LEVEL 02/28/2026 02/28/2025 SCREENING FOR DIABETES 02/29/2028 02/28/2025 RSV VACCINE (1 - 1-dose 75+ series) 2030 HEPATITIS A VACCINES Aged Out No long er eligible based on patient's age to complete this topic HIB VACCINES Aged Out No longer eligi ble based on patient's age to complete this topic MENINGOCOCCAL VACCINES (ACWY) Aged Out No longer eligible based on patient's age to complete this topic MENINGOCOCCAL VACCINES (B) Aged Out N o longer eligible based on patient's age to complete this topic Medical Devices Not on file Procedures Procedure Name Priority Date/Time Associated Diagnosis Comments CBC AND DIFFERENTIAL STAT 02/28/2025 4:35 PM EST SEDIMENTATION RATE (ESR) STAT 02/28/2025 4:35 PM EST C-REACTIVE PROTEIN (CRP), HIGH SENSITIVITY STAT 02/28/2025 4:35 PM EST URIC ACID STAT 02/28/2025 4:35 PM EST BASIC METABOLIC PANEL (BMP) STAT 02/28/2025 4:35 PM EST CBC AND DIFFERENTIAL STAT 02/28/2025 4:35 PM EST XR FOOT 3 OR MORE VIEWS (RIGHT) Routine 02/28/2025 4:07 PM EST from Last 3 Months Results * (ABNORMAL) C-Reactive Protein (CRP), High Sensitivity (02/28/2025 4:35 PM EST) Pathologist [facility] CRP, High Sensitivity 4.2(H) 1.0 - 3.0 mg/L 02/28/2025 5:16 PM EST [facility] Comment: Cardiovascular Risk: Low: <1.0 mg/L Average: 1.0-3.0 mg/L High: >3.0 mg/L Acute Inflammation: >10.0 mg/L Persistent elevations may represent non cardiovascular inflammation. Blood (Blood) Venipuncture / Unknown 02/28/2025 4:35 PM EST 02/28/2025 4:37 PM EST Kandis Marie PA-C LAB BLOOD BKR ORDERAB LES Final Result [facility] [address] [place] [address] * (ABNORMAL) CBC and Differential (02/28/2025 4:35 PM EST) [facility] WBC 11.27(H) 4.00 - 11.00 K/uL 02/28/2025 4:39 PM [facility] RBC 4.59 4.50 - 5.90 M/uL 02/28/2025 4:39 PM [facility] Hemoglobin 13.6 13.5 - 17.5 g/dL 02/28/2025 4:39 PM [facility] Hematocrit 40.9(L) 41.0 - 53.0 % 02/28/2025 4:39 PM [facility] MCV 89.1 80.0 - 100.0 fL 02/28/2025 4:39 PM [facility] MCH 29.6 27.0 - 31.0 pg 02/28/2025 4:39 PM [facility] MCHC 33.3 32.0 - 36.0 g/dL 02/28/2025 4:39 PM [facility] MPV 10.6 8.4 - 12.0 fL 02/28/2025 4:39 PM [facility] RDW-CV 12.4 11.5 - 14.5 % 02/28/2025 4:39 PM [facility] PLT 210 150 - 450 K/uL 02/28/2025 4:39 PM [facility] Neutrophils 67.6 % 02/28/2025 4:39 PM [facility] Lymphocytes 21.3 % 02/28/2025 4:39 PM [facility] Monocytes 8.3 % 02/28/2025 4:39 PM [facility] Eosinophils 1.8 % 02/28/2025 4:39 PM [facility] Basophils 0.5 % 02/28/2025 4:39 PM [facility] Imm Grans 0.5 % 02/28/2025 4:39 PM [facility] NRBC 0.0 <=0.0 /100 WBCs 02/28/2025 4:39 PM [facility] Absolute Neutrophils 7.61(H) 1.92 - 7.60 K/uL 02/28/2025 4:39 PM [facility] Absolute Lymphocytes 2.40 0.72 - 4.10 K/uL 02/28/2025 4:39 PM [facility] Absolute Monocytes 0.94 0.16 - 1.10 K/uL 02/28/2025 4:39 PM [facility] Absolute Eosinophils 0.20 0.00 - 0.50 K/uL 02/28/2025 4:39 PM [facility] Absolute Basophils 0.06 0.00 - 0.15 K/uL 02/28/2025 4:39 PM [facility] Absolute Imm Grans 0.06 0.00 - 0.09 K/uL 02/28/2025 4:39 PM [facility] Absolute NRBC 0.00 <=0.00 K cells/uL 02/28/2025 4:39 PM [facility] Absolute Neutrophils 7.61(H) 1.92 - 7.60 K/uL 02/28/2025 4:39 PM [facility] Comment:Automated cell count . Manual ANC may differ if performed. Diff Type Auto 02/28/2025 4:39 PM EST [facility] Blood (Blood) Venipuncture / Unknown 02/28/2025 4:35 PM EST 02/28/2025 4:37 PM EST us Kandis Marie PA-C LAB BLOOD BKR ORDERAB LES Final Result Performing Organization Address City/[facility]/ZIP Co de Phone Number [address] [address] * (ABNORMAL) Erythrocyte Sedimentation Rate (ESR) (02/28/2025 4:35 PM EST) ESR 31(H) 0 - 20 mm/h 02/28/2025 4:46 PM EST [facility] Blood (Blood) Venipuncture / Unknown 02/28/2025 4:35 PM EST 02/28/2025 4:37 PM EST us Kandis Marie PA-C LAB BLOOD BKR ORDERAB LES Final Result Performing Organization Address [facility]/ZIP Co de Phone Number [address] [address] * (ABNORMAL) Uric Acid (02/28/2025 4:35 PM EST) Uric Acid 11.5(H) 3.4 - 7.0 mg/dL 02/28/2025 5:16 PM EST [facility] Blood (Blood) Venipuncture / Unknown 02/28/2025 4:35 PM EST 02/28/2025 4:37 PM EST us Kandis Marie PA-C LAB BLOOD BKR ORDERAB LES Final Result Performing Organization Address City/[facility]/ZIP Co de Phone Number [address] [address] * (ABNORMAL) Basic Metabolic Panel (BMP) (02/28/2025 4:35 PM EST) Sodium 139 136 - 145 mmol/L 02/28/2025 5:16 PM [facility] Potassium 4.4 3.4 - 5.1 mmol/L 02/28/2025 5:16 PM [facility] Chloride 105 98 - 107 mmol/L 02/28/2025 5:16 PM [facility] CO2 23 20 - 31 mmol/L 02/28/2025 5:16 PM [facility] BUN 36(H) 6 - 23 mg/dL 02/28/2025 5:16 PM [facility] Creatinine 1.60(H) 0.60 - 1.30 mg/dL 02/28/2025 5:16 PM [facility] Glucose 99 70 - 99 mg/dL 02/28/2025 5:16 PM [facility] Calcium 9.3 8.5 - 10.5 mg/dL 02/28/2025 5:16 PM [facility] eGFR 46(L) >59 mL/min/1.7 3m2 02/28/2025 5:16 PM [facility] Comment:Estimated glomerular filtration rate calculated using the CKD-EPI refit equation. Anion Gap 11 3 - 17 mmol/L 02/28/2025 5:16 PM [facility] Blood (Blood) Venipuncture / Unknown 02/28/2025 4:35 PM EST 02/28/2025 4:37 PM EST Kandis Marie PA-C LAB BLOOD BKR ORDERAB LES Final Result [facility] [address] [place] [address] * XR FOOT 3 OR MORE VIEWS [...] IMG XR LOWER EXTREMIT Y Final Result from Last [address] [facility] MEDICARE REPLACEMENT [facility] MEDICARE [facility]PLACEMENT [place] [id number] [facility] MEDICARE REPLACEMENT [place] [id number] [facility] MEDICARE REPLACEMENT [address] [facility] MEDICARE REPLACEMENT [place] [id number] [facility] AARP MEDICARE REPLACEMENT [facility] CARE NETWORK Care Teams Elevator Constructor Helper Relationship Specialty Start Date End Date Andra Chaudhari NP [address] [place] [address] PCP - General Nurse Practitioner 02/28/25 Additional Source Comments The information contained in this document represents components of the legal health record. It is not the complete legal health record.[facility]
== END 2025-03-03 13:38 | disposition home or self-care (01) ==
LOC: HO.HMCH 12:15
PROVIDERS: PCP Internal Medicine; Visit Provider Internal Medicine
DX: E11.42 Type 2 diabetes mellitus with diabetic polyneuropathy (principal)

== ENCOUNTER → 2025-03-03 12:14 | Outpatient (BNVA) | payer MEDICARE, SELFPAY | PROVIDERS: PCP Internal Medicine; Visit Provider Internal Medicine | DX: M79.671 Pain in right foot (principal); M10.9 Gout, unspecified; L97.421 Non-pressure chronic ulcer of left heel and midfoot limited to breakdown of skin; C80.1 Malignant (primary) neoplasm, unspecified; L98.499 Non-pressure chronic ulcer of skin of other sites with unspecified severity; M17.0 Bilateral primary osteoarthritis of knee; C44.311 Basal cell carcinoma of skin of nose; E66.9 Obesity, unspecified; E11.42 Type 2 diabetes mellitus with diabetic polyneuropathy | CPT/HCPCS: 83036; 99212 ==

== ENCOUNTER 2025-03-17 01:29 | Emergency (ER) | payer MEDICARE, SELFPAY ==
--- NOTE | ~2025-03-17 | XR_ITS ---
CLINICAL HISTORY: Chest pain. Right sided pain. Lump. 1 view chest x-ray Comparison: None provided Findings: The lungs are clear. Heart size is normal. No acute fracture. IMPRESSION: 1. No acute findings. This document has been electronically signed by: Moses Curry MD on 03/17/2025 07:11:32
--- NOTE | 2025-03-17 01:34 | ECG_ITS ---
Test Reason : CP Blood Pressure : */* mmHG Vent. Rate : 85 BPM Atrial Rate : 85 BPM P-R Int : 182 ms QRS Dur : 84 ms QT Int : 364 ms P-R-T Axes : 54 55 35 degrees QTcB Int : 433 ms Sinus rhythm with Premature atrial complexes Otherwise normal ECG No significant changes when compared with the previous EKG of august 24 2023 Referred By: Kate Ly Electronically Signed By: WENDY PAYAN
[2025-03-17 08:13] LABS: Hematocrit 41.3 % (42.0-52.0); Hemoglobin 14.2 g/dl (14.0-18.0); Mean Corpuscular HGB Conc 34.4 g/dl (31.0-36.0); Mean Corpuscular Hemoglobin 30.9 pg (27.0-33.0); Mean Corpuscular Volume 89.8 fL (80.0-98.0); NRBC Abs Auto 0.000 X10*3/uL (0.0-0.012); NRBC Pct Auto 0.0 /100WBC (0.0-0.2); Platelet Count 250 X10*3/uL (160-400); Red Blood Count 4.60 X10*6/uL (4.60-5.80); White Blood Count 13.5 X10*3/uL (4.8-10.8)
[2025-03-17 08:49] LABS: Anion Gap 16 (12-20); Carbon Dioxide 21 mmol/L (22-29); Chloride 108 mmol/L (96-108); Potassium 4.1 mmol/L (3.3-5.1); Sodium 141 mmol/L (135-145); Troponin-I High Sensitivity < 2.7 ng/L (<3.5-35.0)
--- OUTSIDE RECORDS SUMMARY | 2025-03-17 09:07 | XMS_ITS | Patient Health Record ---
Author Organization [facility] Address [address] [place] [address] Care Team Providers Care Charter Boat Operator Name Role Phone Robert MARTI, Marquez Primary Care Provider Margarita Saxena Unavailable [phone] Allergies No Known Allergies Reason For Referral [...] hrs Active Clotrimazole 1 % 1 application Account Manager Education ally Twice a day; Duration: 28 day(s) [...] Problem Acquired hammer toe of right foot (0544492492159130 ) Hammer toe of right foot (M20.41) Active confirmed Problem Acquired hammer toe of left foot (4798625535804688 ) Hammer toe of left foot (M20.42) Active confirmed Problem Polyneuropathy due to type 2 diabetes mellitus (879795769) Type 2 diabetes mellitus with polyneuropathy (E11.42) Active confirmed Problem Ulcer of left lower leg (disorder) (2705994558163081 3) Non-pressure ulcer of left lower extremity [...] Date Coverage End Date [employer] Medicare [id number] [address] [address] [place] [address] [id number] Jaret Rojas Self - patient is the insured Medical (General) History Medical History History ICD Code Heart murmur osteoarthritis Hypertension Insomnia Diabetes Surgical History Surgery Date(Month/Year) Hernia Repair debridement skin ulcer, biopsy skin lesi on- left 12/01/2021
--- OUTSIDE RECORDS SUMMARY | 2025-03-17 09:07 | XMS_ITS | Encounter Summary ---
Author Organization [facility] Address [address] [place] [address] Care Team Providers Care Ice Cream Freezer Name Role Phone Marguerite Chaudharia GIORGIO Primary Care Provider [phone] Encounter Details Date Type Department Care Team (Late st Contact Info) Description 03/26/2023 Lab Requisition [facility] Three [facility] [address] [place] [address] Meg García MD [address] [place] [address] Social History Tobacco Use Types Packs/Day Years [...] 05/15/2025 11:00 AM EST Office Visit [facility] [address] [place] [address] Recreation Technician: Meg Holloway MD [address] [place] [address] documented as of this encounter Procedures * Due to [place] state law, this organization might not be sharing negative HIV tests. Procedure Name Priority Date/Time Associated Diagnosis Comments TISSUE EXAM Routine 03/26/2023 2:19 PM EST documented in this encounter Results * Due to [place] state law, this organization might not be sharing negative HIV tests. * Tissue Exam (03/26/2023 2:19 PM EST) Correction History This is a revised report as of 04/03/23 which supersedes the prior report from 03/30/2023. This report is being revised to correct typographical error. [facility] MANUAL 04/03/2023 9:09 AM EST [employer] [facility] Final Diagnosis Review of Outside Slides Received from [facility] Labeled [id number] Procedure Date 02/14/2023: Specimen #1 - Skin, [...] neoplastic process. Case is reviewed at the [facility] Dermatopathology consensus conference. [facility] MANUAL 04/03/2023 9:09 AM EST Notable Limited [facility] Amendment electronically signed by Jacobo Ojeda MD PhD on 04/03/2023 at 0909 EST at 1302 EST Clinical History not provided [facility] MANUAL 04/03/2023 9:09 AM EST [id number] THREE [facility] LABOR[facility]ORY Gross Consult Client Facility: [facility] Slide Identification: [id number] Number of Glass Slides Received: 2 Number of Blocks Received: 0 Client Pathologist: Attila Baldwin Accompanying Report Received: Yes [facility] MANUAL 04/03/2023 9:09 AM EST [id number] [facility] Embedded Images [place] MANUAL 04/03/2023 9:09 AM EST Notable [employer] [facility] Resulting Agency Case was signed out at [facility], Department of Pathology, [employer] 3 CLIA [id number] [facility] MANUAL 04/03/2023 9:[address] [facility] [employer] [facility] LAB[facility] Report Header Surgical Pathology Report Case: [id number] Authorizing Provider: Meg García MD Collected: 03/26/20239 Ordering Location: [facility] Received: 03/26/2023 [address] [place] [facility] Three Lab Pathologist: Jacobo Ojeda MD PhD Specimen: Skin, Left Lateral Heel, Biopsy: 04/03/2023 9:09 AM EST [facility] [employer] [facility] Tissue Specimen from skin / Unknown 03/26/2023 2:19 PM EST 03/26/2023 2:19 PM EST us Meg García MD LAB PATHOLOGY/CYTOLOGY ASHA LLOYD Edited Result - Final [facility] [employer] [facility] ANATOMIC PATHOLOGY LABORATORY [address] [place] [address] documented in this encounter Visit Diagnoses Not on filedocumented in this encounter Care Teams Ice Cream Freezer Relationship Specialty Start Date End Date Andra Chaudhari NP [address] [place] [address] PCP - General Nurse Practitioner Family 11/11/24 documented as of this encounter
--- OUTSIDE RECORDS SUMMARY | 2025-03-17 09:07 | XMS_ITS | Encounter Summary ---
Author Organization [facility] Address [address] [place] [address] Care Team Providers Care Mfg Assoc Name Role Phone Andra Chaudhari NP Primary Care Provider [phone] Encounter Details Date Type Department Care Team (Late st Contact Info) Description 04/10/2023 Orders Only [facility] Nuclear Medicine [address] [place] [address] Jhoana Terry MD [address] [place] [address] Social History Tobacco Use Types Packs/Day Years [...] Description 05/15/2025 11:00 AM EST Office Visit [facility] [address] [place] [address] Internet Developer: Meg Holloway MD [address] [place] [phone] documented as of this encounter Visit Diagnoses Not on filedocumented in this encounter Care Teams Mfg Assoc Relationship Specialty Start Date End Date Andra Chaudhari NP [address] [place] [address] PCP - General Nurse Practitioner Family 11/11/24 documented as of this encounter
--- OUTSIDE RECORDS SUMMARY | 2025-03-17 09:07 | XMS_ITS | Clinical Summary ---
Author Organization [facility] Address [address] [place] [address] Phone Care Team Providers Care Bottle Cleaner Name Role Phone Andra Chaudhari NP Primary Care Provider [phone] Allergies No known active allergies Medications Medication-Free [...] 7 days. 14 tablet 03/07/20 25 Active Problems No known active problems Encounters Date Type Department Care Team Description 02/28/2025 3:16 PM EST - 02/28/2025 5:50 PM EST Emergency [facility] Emergency [address] [place] [address] Discharge Disposition: Home or Self Care 02/28/2025 1:20 PM EST Office Visit [facility] [address] [place] [address] Yakelin Chapman PA-C Cellulitis of right lower [...] Sensitivity (02/28/2025 4:35 PM EST) Pathologist [facility] CRP, High Sensitivity 4.2(H) 1.0 - 3.0 mg/L 02/28/2025 5:16 PM EST [facility] Comment: Cardiovascular Risk: Low: <1.0 mg/L Average: 1.0-3.0 mg/L High: >3.0 mg/L Acute Inflammation: >10.0 mg/L Persistent elevations may represent non cardiovascular inflammation. Blood (Blood) Venipuncture / Unknown 02/28/2025 4:35 PM EST 02/28/2025 4:37 PM EST Kandis Marie PA-C LAB BLOOD BKR ORDERAB LES Final Result [facility] [address] [place], [place] [id number] * (ABNORMAL) CBC and Differential (02/28/2025 4:35 PM EST) [facility] WBC 11.27(H) 4.00 - 11.00 K/uL 02/28/2025 4:39 PM [facility] RBC 4.59 4.50 - 5.90 M/uL 02/28/2025 4:39 PM [facility] Hemoglobin 13.6 13.5 - 17.5 g/dL 02/28/2025 4:39 PM [facility] Hematocrit 40.9(L) 41.0 - 53.0 % 02/28/2025 4:39 PM [facility] MCV 89.1 80.0 - 100.0 fL 02/28/2025 4:39 PM [facility] MCH 29.6 27.0 - 31.0 pg 02/28/2025 4:39 PM [facility] MCHC 33.3 32.0 - 36.0 g/dL 02/28/2025 4:39 PM [facility] MPV 10.6 8.4 - 12.0 fL 02/28/2025 4:39 PM [facility] RDW-CV 12.4 11.5 - 14.5 % 02/28/2025 4:39 PM [facility] PLT 210 150 - 450 K/uL 02/28/2025 4:39 PM [facility] Neutrophils 67.6 % 02/28/2025 4:39 PM [facility] Lymphocytes 21.3 % 02/28/2025 4:39 PM [facility] Monocytes 8.3 % 02/28/2025 4:39 PM [facility] Eosinophils 1.8 % 02/28/2025 4:39 PM [facility] Basophils 0.5 % 02/28/2025 4:39 PM [facility] Imm Grans 0.5 % 02/28/2025 4:39 PM [facility] NRBC 0.0 <=0.0 /100 WBCs 02/28/2025 4:39 PM [facility] Absolute Neutrophils 7.61(H) 1.92 - 7.60 K/uL 02/28/2025 4:39 PM [facility] Absolute Lymphocytes 2.40 0.72 - 4.10 K/uL 02/28/2025 4:39 PM [facility] Absolute Monocytes 0.94 0.16 - 1.10 K/uL 02/28/2025 4:39 PM [facility] Absolute Eosinophils 0.20 0.00 - 0.50 K/uL 02/28/2025 4:39 PM [facility] Absolute Basophils 0.06 0.00 - 0.15 K/uL 02/28/2025 4:39 PM [facility] Absolute Imm Grans 0.06 0.00 - 0.09 K/uL 02/28/2025 4:39 PM [facility] Absolute NRBC 0.00 <=0.00 K cells/uL 02/28/2025 4:39 PM [facility] Absolute Neutrophils 7.61(H) 1.92 - 7.60 K/uL 02/28/2025 4:39 PM [facility] Comment:Automated cell count . Manual ANC may differ if performed. Diff Type Auto 02/28/2025 4:39 PM EST [facility] Blood (Blood) Venipuncture / Unknown 02/28/2025 4:35 PM EST 02/28/2025 4:37 PM EST us Kandis Marie PA-C LAB BLOOD BKR ORDERAB LES Final Result Performing Organization Address City/[facility]/ZIP Co de Phone Number [address] [address] * (ABNORMAL) Erythrocyte Sedimentation Rate (ESR) (02/28/2025 4:35 PM EST) ESR 31(H) 0 - 20 mm/h 02/28/2025 4:46 PM EST [facility] Blood (Blood) Venipuncture / Unknown 02/28/2025 4:35 PM EST 02/28/2025 4:37 PM EST us Kandis Marie PA-C LAB BLOOD BKR ORDERAB LES Final Result Performing Organization Address [facility]/ZIP Co de Phone Number [address] [address] * (ABNORMAL) Uric Acid (02/28/2025 4:35 PM EST) Uric Acid 11.5(H) 3.4 - 7.0 mg/dL 02/28/2025 5:16 PM EST [facility] Blood (Blood) Venipuncture / Unknown 02/28/2025 4:35 PM EST 02/28/2025 4:37 PM EST us Kandis MAYERS-Sandy LAB BLOOD BKR ORDERAB LES Final Result Performing Organization Address City/[facility]/ZIP Co de Phone Number [address] [address] * (ABNORMAL) Basic Metabolic Panel (BMP) (02/28/2025 4:35 PM EST) Sodium 139 136 - 145 mmol/L 02/28/2025 5:16 PM [facility] Potassium 4.4 3.4 - 5.1 mmol/L 02/28/2025 5:16 PM [facility] Chloride 105 98 - 107 mmol/L 02/28/2025 5:16 PM [facility] CO2 23 20 - 31 mmol/L 02/28/2025 5:16 PM [facility] BUN 36(H) 6 - 23 mg/dL 02/28/2025 5:16 PM [facility] Creatinine 1.60(H) 0.60 - 1.30 mg/dL 02/28/2025 5:16 PM [facility] Glucose 99 70 - 99 mg/dL 02/28/2025 5:16 PM [facility] Calcium 9.3 8.5 - 10.5 mg/dL 02/28/2025 5:16 PM [facility] eGFR 46(L) >59 mL/min/1.7 3m2 02/28/2025 5:16 PM [facility] Comment:Estimated glomerular filtration rate calculated using the CKD-EPI refit equation. Anion Gap 11 3 - 17 mmol/L 02/28/2025 5:16 PM [facility] Blood (Blood) Venipuncture / Unknown 02/28/2025 4:35 PM EST 02/28/2025 4:37 PM EST Kandis Marie PA-C LAB BLOOD BKR ORDERAB LES Final Result [facility] [address] [place] [address] * XR FOOT 3 OR MORE VIEWS (RIGHT) (02/28/2025 4:07 PM EST) Anatomical Region Laterality Modality Foot Right Computed Radiogr aphy 02/28/2025 5:09 PM EST Impressions 02/28/2025 5:12 PM EST No acute abnormality in the foot. Narrative 02/28/2025 5:12 PM EST XR FOOT 3 OR MORE VIEWS (RIGHT) Referring clinician's provided indication for this examination in [facility]: Pain COMPARISON: None. FINDINGS: No fracture. Normal [...] Final Result from Last 3 Months Insurance [facility] MEDICARE REPLACEMENT [facility] MEDICARE REPLACEMENT [place] [id number] [facility] MEDICARE REPLACEMENT Member Subscriber Plan / Payer (Ef fective 2024-) Name:Jaret Rojas Relation to Subscriber:Self Name:Jaret Rojas Payer ID:[id number] (NAIC) Type:Medicare Address: [address] [place], [place] [id number] [address] [facility] MEDICARE REPLACEMENT [address] [facility] MEDICARE REPLACEMENT [place] [id number] [facility] AARP MEDICARE REPLACEMENT [facility] Care Teams Bottle Cleaner Relationship Specialty Start Date End Date Andra Chaudhari NP [address] [place] [address] PCP - General Nurse Practitioner 02/28/25 Additional Source Comments The information contained in this document represents components of the legal health record. It is not the complete legal health record.[facility]
--- OUTSIDE RECORDS SUMMARY | 2025-03-17 09:07 | XMS_ITS | Clinical Summary ---
Author Organization [facility] Address [address] [place] [address] Care Team Providers Care Prevention Specialist Name Role Phone Andra Chaudhari NP Primary Care Provider [phone] Allergies Active Allergy Reactions Criticality Noted Date Comments Oxycodone Other (see comments) 04/20/2023 Wishes to avoid all narcotics Medications gabapentin (NEURONTIN) 300 mg capsule Take 600 mg by mouth 2 times a day. Pt states taking 300mg daily tlp associate account executive 02/10/2023 Active metFORMIN (GLUCOPHAGE) 1,000 mg tablet [...] Description 05/15/2025 11:00 AM EST Office Visit [facility] [address] [place] [phone] Technical Writer: Meg Holloway MD [address] [place] [phone] Health Maintenance Due Date Last Done [...] this topic Medical Devices Implanted Type Area Learn To Swim Instructor Device Identifier Shelf Expiration Date Model / Serial / Lot Dressing Wound Matrix Bilayer Collagen And Silicone [id number] - [id number] Implanted:Qty: 1 on 05/02/2023 by Arnaud Rosales MD at [facility] Implant Left: Heel [employer] 12/16/2024 [id number] / / [id number] Procedures * Due to [place] [employer] law, this organization might not be sharing negative HIV tests. Procedure Name Priority Date/Time Associated Diagnosis Comments POCT GLUCOSE Routine 06/14/2023 7:42 AM EDT from Last 3 Months or Most Recently Relevant to Health Maintenance Results * Due to [place] [employer] law, this organization might not be sharing negative HIV tests. * (ABNORMAL) POCT Glucose, interfaced (06/14/2023 7:42 AM EDT) [facility] Glucose, POCT 138(H) 70 - 99 mg/dL 06/14/2023 7:44 AM EDT [facility] Comment: The hospice entrance attendant has not determined the efficacy of this test in Critically ill patients. [facility] defines Critically ill patients for the purpose [...] LAB POCT ORDERABLES - DEVICE Final Result [facility] [address] [place] [address], from Last 3 Months or Most Recently Relevant to Health Maintenance Insurance [facility] HSNO/FREE CARE [facility]MIN [facility] Advance Directives Documents on File Type Date Recorded Patient Spring Fitter Expl anation Health Care Proxy 05/02/2023 6:17 [...] Rojas Daughter Health Care Agent Care Teams Prevention Specialist Relationship Specialty Start Date End Date Andra Chaudhari NP [address] [place] [id number] PCP - General Nurse Practitioner Family 11/11/24
--- OUTSIDE RECORDS SUMMARY | 2025-03-17 09:07 | XMS_ITS | Encounter Summary ---
Author Organization [facility] Address [address] [place] [address] Care Team Providers Care Pourer Metal Name Role Phone Andra Chaudhari NP Primary Care Provider [phone] Encounter Details Date Type Department Care Team (Late st Contact Info) Description 03/29/2023 Orders Only [facility] Interventional Radiology [address] [place] [phone] Imani Julian PA [address] [place] [phone] Social History Tobacco Use Types Packs/Day Years [...] Description 05/15/2025 11:00 AM EST Office Visit [facility] [address] [place] [address] Cement Loader: Meg Holloway MD [address] [place] [address] documented as of this encounter Visit Diagnoses Not on filedocumented in this encounter Care Teams Pourer Metal Relationship Specialty Start Date End Date Andra Chaudhari NP [address] [place] [phone] PCP - General Nurse Practitioner Family 11/11/24 documented as of this encounter
[2025-03-17 09:48] LABS: Resp Syncy Virus RNA Qual PCR NEGATIVE (Negative); SARS COV2 PCR INHOUSE NEGATIVE (Negative)
== END 2025-03-17 07:18 | disposition home or self-care (01) ==
PROVIDERS: Emergency Provider Emergency Medicine
DX: M94.0 Chondrocostal junction syndrome [Tietze] (principal); Z03.818 Encounter for observation for suspected exposure to other biological agents ruled out; E11.9 Type 2 diabetes mellitus without complications; I10 Essential (primary) hypertension; E78.5 Hyperlipidemia, unspecified
CPT/HCPCS: 36415; 71045; 80051; 84484; 85027; 87637; 93005; 99283

== ENCOUNTER → 2025-03-17 01:34 | Outpatient (BNV) | payer MEDICARE, SELFPAY | PROVIDERS: Emergency Provider Emergency Medicine; Visit Provider Internal Medicine | DX: I49.1 Atrial premature depolarization (principal) | CPT/HCPCS: 93010 ==

== ENCOUNTER → 2025-03-17 02:49 | Outpatient (BNV) | payer MEDICARE, SELFPAY | PROVIDERS: Emergency Provider Emergency Medicine; Visit Provider Radiology Diagnostic Radiology | DX: R07.89 Other chest pain (principal); R22.2 Localized swelling, mass and lump, trunk | CPT/HCPCS: 71045 ==